=== PATIENT | male | born 1940 | race Hispanic/Latino ===

== ENCOUNTER 2017-08-29 12:10 | Inpatient (IN) | payer MEDICARE, BC ==
--- NOTE | 2017-08-29 12:26 | ED PDOC ---
Arrival/HPI - General Time Seen by Provider: 08/29/17 12:22 Historian: EMS EM Caveat: Acuity of Condition - History of Present Illness Narrative History of Present Illness (Text): 08/29/17 12:23 Patient is a 77 yo male presents via [facility] ambulance after he was "found by neighbors lying on the floor". Reportedly patient was last seen "2-3 days ago" and on arrival of medics he was "found laying on the ceramic floor in the bathroom not responding". No other history available at this time. Patient reportedly was not verbal but found to be trembling and not answering any questions. Past Medical History - Provider Review Nursing Documentation Reviewed: Yes Family/Social History - Physician Review Nursing Documentation Reviewed: Yes Family/Social History: No Known Family HX Allergies/Home Meds Allergies/Adverse Reactions: Allergies Unobtainable Allergy (Verified 08/29/17 12:30) Home Medications: Home Meds Medication Instructions Recorded Confirmed Unobtainable 08/29/17 08/29/17 Review of Systems - Review of Systems Systems not reviewed;Unavailable: Acuity of Condition Neurological: Speech Changes Physical Exam - Physical Exam Narrative Physical Exam (Text): Head: Atraumatic. Normocephalic. Eyes: Pupils pinpoint, minimally reactive, left sided gaze preference. ENT: Mucous membranes are dry. Oropharynx is clear and symmetric. Neck: Supple. Full ROM. No JVD. No lymphadenopathy. No soft tissue swelling. Cardiovascular: Tachycardic, irregularly irregular, systolic murmur noted. Pulmonary/Chest: Tachypneic. Clear to auscultation bilaterally. No wheezing, rales or rhonchi. Abdominal: Soft and non-distended. There is no tenderness. No rebound, guarding, or rigidity. No organomegaly. Good bowel sounds. Back: No CVA tenderness. No deformity. Extremities: No edema. No cyanosis. No clubbing. Abrasion noted to left lower extremity. No bony deformities noted. Skin: Skin is pale but warm. Neurological: Aphasic. Left sided gaze. Fine resting generalized tremor. Will localize pain but does not follow commands. Babinski down. Reflexes diminished. Patient with ? facial droop. Psychiatric: Poor eye contact. Poor interaction. Rectal: no gross bleeding Vital Signs Reviewed: Yes Vital Signs Temp Pulse Resp BP Pulse Ox 08/29/17 17:01 98.5 F 111 H 17 155/80 H 96 08/29/17 16:50 118 H 18 163/107 H 96 08/29/17 15:18 98.2 F 118 H 18 160/72 H 08/29/17 14:00 98.2 F 115 H 17 119/87 97 08/29/17 12:18 98.4 F 130 H 26 H 108/93 H 94 L Temperature: Afebrile Pulse: Irregular Respiratory Rate: Tachypneic Appearance: Positive for: Ill-Appearing Mental Status: Positive for: other (not following commands) Medical Decision Making ED Course and Treatment: 08/29/17 13:22 Impression: 77 year old male presents found unresponsive on the floor by neighbors. Progress Notes: History is supplemented by EMS personnel. Patient reportedly live by himself and was LAST SEEN 2-3 days AGO. NO known last time well. On exam he is aphasic, left sided gaze preference. Head CT emergently ordered. He is tremulous but afebrile. Shaking does NOT appear to be consistent with seizure activity, although ATIVAN given PRIOR TO ARRIVAL BY EMS. PROCEDURE: CT HEAD WITHOUT CONTRAST. Dictator : Catarino Kovacs MD Report Date : 08/29/2017 IMPRESSION: No acute intracranial findings PROCEDURE: Chest X-ray Dictator : Catarino Kovacs MD Report Date : 08/29/2017 13:12:16 IMPRESSION: No active disease Upon return from CT he is less tremulous, appears to localize voice, localize pain. He is NOT a tpa candidate as UNKNOWN TIME OF ONSET OF SYMPTOMS. Patient was noted to be in atrial fibrillation with rapid ventricular response. Lactate elevated with leukocytosis. Chemistry is pending at this time. Will initiate iv antibiotics for possible component of sepsis. Patient will be admitted to ICU for CVA, arrhythmia, sepsis. I have discussed case with Dr. Shanda Currie, including heart rhythm and current exam. Cardiology was also consulted for arrhythmia to review anticoagulation pending further neurology studies/input. PMD Dr. Carmelo Taylor accepts patient to his service, informs me that review of office records reveal he has no known allergies, has history of CAD, COPD. 08/29/17 14:34 Troponin elevated. Cr. 1.7. 08/29/17 14:48 Code Sepsis called. As there is suspicion of acute cva as well as acute SD based on neuro exam and based on elevated troponin, iv hydration will be coordinted with neurologist and fiber machine tender as there is suspicion of multiple processes including risk of cardiac disease. I have discussed case directly with Dr. Currie who has evaluated patient in ED and states that patient may receive Heparin for atrial fibrillation/SD if discussed with fiber machine tender. I have discussed patients presentation with Dr. Silveira, covering for cardiology consult, and reviewed patient CT head reading as well as neurology recommendations. I have also communciated with embalmer assistant Dr. Howard, who is aware of current recommendations from neurology and cardiology. Patient intiated on Heparin in ED after this medication reviewed with Dr. Currie , Dr. Silveira, and embalmer assistant. MRI ordered although due to inability to confirm if any contraindications to MRI , due to patient's mental status, at this time MRI unable to be obtained at this time while in ED. This was communicated to admitting team. Dr. Carmelo Taylor updated with patient's disposition and consultations. Attempt to contact listed "next of kin" with no response while in ED. Care turned over to PMD and ICU team. 08/29/17 18:30 - Critical Care Critical Care Minutes: 60 minutes - Lab Interpretations Lab Results: 08/29/17 12:30 08/29/17 13:35 Lab Results 08/29/17 13:35: Chloride 101, Sodium 139, Potassium 4.5, Carbon Dioxide 22, Anion Gap 21 H, BUN 29 H, Creatinine 1.7 H, Est GFR ( Amer) 47, Est GFR ( Non-Af Amer) 39, Random Glucose 116 H, Calcium 9.3, Total Bilirubin 1.0, AST 141 H, ALT 83 H, Alkaline Phosphatase 102, Lactate Dehydrogenase 1333 H, Total Creatine Kinase 4782 H, CK-MB (CK-2) 51.4 H, CK-MB (CK-2) % 1.1 L, Troponin I 0.57 H*, Total Protein 7.3, Albumin 4.2, Globulin 3.2, Albumin/Globulin Ratio 1.3, Triglycerides 99, Cholesterol 174, LDL Cholesterol Direct 100, HDL Cholesterol 65 H 08/29/17 13:20: Urine Color Yellow, Urine Appearance Sl cloudy, Urine pH 5.5, Ur Specific Henderson >= 1.030, Urine Protein 100 H, Urine Glucose (UA) Negative, Urine Ketones Trace H, Urine Blood Large H, Urine Nitrate Negative, Urine Bilirubin Negative, Urine Urobilinogen 0.2, Ur Leukocyte Esterase Negative, Urine RBC 1 - 3, Urine WBC 0 - 2, Ur Epithelial Cells 0 - 2, Amorphous Sediment Moderate, Urine Bacteria Small, Hyaline Casts 0 - 2 08/29/17 12:50: pCO2 33 L, pO2 73.0 L, HCO3 16.2 L, ABG pH 7.30 L, ABG Total CO2 17.2 L, ABG O2 Saturation 97.7, ABG Base Excess -9.2 L, Chloride 103.0, Glucose 137 H, Lactate 8.3 H* 08/29/17 12:30: TSH 3rd Generation 0.75 08/29/17 12:30: Blood Type AB POSITIVE, Antibody Screen Negative, BBK History Checked No verified bt 08/29/17 12:30: PT 15.4 H, INR 1.39 H, APTT 30.4 08/29/17 12:30: WBC 21.2 H, RBC 4.42, Hgb 12.8 L, Hct 39.5 L, MCV 89.4, MCH 29.0 , MCHC 32.4, RDW 13.9, Plt Count 269, MPV 10.3, Gran % 88.1 H, Lymph % (Auto) 2.6 L, [place] % (Auto) 9.3 H, Eos % (Auto) 0.0 L, Baso % (Auto) 0.0, Gran # 18.69 H, Lymph # 0.6 L, [place] # 2.0 H, Eos # 0.0, Baso # 0.01, Neutrophils % (Manual) 91 H, Lymphocytes % (Manual) 5 L, Monocytes % (Manual) 4, Large Platelets Present, Giant Platelets Present, Poikilocytosis (manual Slight, Anisocytosis ( manual) Slight 08/29/17 12:21: POC Glucose (mg/dL) 95 I have reviewed the lab results: Yes - RAD Interpretation Radiology Orders: 08/29/17 12:31 HEAD W/O CONTRAST [CT] Stat CHEST PORTABLE [RAD] Stat - EKG Interpretation Interpreted by ED Physician: Yes Type: 12 lead EKG - Medication Orders Current Medication Orders: Atorvastatin Calcium (Lipitor) 20 mg NG DAILY BERTO Heparin Sodium/Sodium Chloride (Heparin 16101 Units/250ml 1/2 Normal Saline) 25 ,000 units in 250 mls @ 10.173 mls/hr IV .Q24H PRN; Protocol; 18 UNITS/KG/HR PRN Reason: ADJUST RATE PER PROTOCOL Last Admin: 08/29/17 16:44 Dose: 18 units/kg/hr, 10.173 mls/hr eMAR Start Stop Document 08/29/17 16:44 SF (Rec: 08/29/17 16:55 SF [id number]) Intravenous Solution Start Date 08/29/17 Start Time 16:44 Titration Intervention Document 08/29/17 16:44 SF (Rec: 08/29/17 16:55 SF [id number]) Titration Intake Waste Amount 0 Container Volume 250 Titration Dosing Titration Dose 18 IV Rate 10.173 Intake/Decrease Started diltiaZEM IVPB 100mg in NS (Cardizem 100mg In Ns) 100 mls @ 5 mls/hr IV .Q20H PRN; Protocol; 5 MG/HR PRN Reason: TITRATE PER MD ORDER Last Admin: 08/29/17 18:12 Dose: 5 mg/hr, 5 mls/hr eMAR Start Stop Document 08/29/17 18:12 JFG (Rec: 08/29/17 18:12 [id number]) Intravenous Solution Start Date 08/29/17 Start Time 18:12 MAR Pulse and Blood Pressure Document 08/29/17 18:12 JFG (Rec: 08/29/17 18:12 [id number]) Pulse Pulse Rate (60-90) 128 Blood Pressure Blood Pressure (100/60-150/90) 173/67 Titration Intervention Document 08/29/17 18:12 JFG (Rec: 08/29/17 18:12 [id number]) Titration Intake Waste Amount 0 Container Volume 100 Titration Dosing Titration Dose 5 IV Rate 5 Intake/Decrease Started Dextrose/Sodium Chloride (Dextrose 5%/0.45% Ns 1000 Ml) 1,000 mls @ 50 mls/hr IV .Q20H BERTO Last Admin: 08/29/17 18:23 Dose: 50 mls/hr eMAR Start Stop Document 08/29/17 18:23 JFG (Rec: 08/29/17 18:23 [id number]) Intravenous Solution Start Date 08/29/17 Start Time 18:23 End Date 08/29/17 Metoprolol Tartrate (Lopressor) 50 mg NG BID BERTO Discontinued Medications Aspirin (Aspirin Supp) 300 mg RC STAT STA Stop: 08/29/17 13:15 Last Admin: 08/29/17 13:54 Dose: 300 mg Sodium Chloride (Sodium Chloride 0.9%) 500 mls @ 1,000 mls/hr IV .Q30M STA Stop: 08/29/17 13:45 Last Admin: 08/29/17 13:20 Dose: 1,000 mls/hr eMAR Start Stop Document 08/29/17 13:20 SF (Rec: 08/29/17 13:46 SF [id number]) Intravenous Solution Start Date 08/29/17 Start Time 13:20 End Date 08/29/17 End time 13:50 Total Infusion Time 30 Cefepime HCl (Maxipime 2gm) 2 gm in 100 mls @ 100 mls/hr IVPB STAT STA PRN Reason: Protocol Stop: 08/29/17 15:32 Last Admin: 08/29/17 15:17 Dose: 100 mls/hr eMAR Start Stop Document 08/29/17 15:17 SF (Rec: 08/29/17 15:18 SF [id number]) Intravenous Solution Start Date 08/29/17 Start Time 15:18 End Date 08/29/17 End time 16:18 Total Infusion Time 60 Sodium Chloride (Sodium Chloride 0.9%) 500 mls @ 1,000 mls/hr IV .Q30M STA Stop: 08/29/17 15:29 Last Admin: 08/29/17 15:45 Dose: 1,000 mls/hr eMAR Start Stop Document 08/29/17 15:45 SF (Rec: 08/29/17 16:43 SF [id number]) Intravenous Solution Start Date 08/29/17 Start Time 15:45 End Date 08/29/17 End time 16:45 Total Infusion Time 60 Acetaminophen (Ofirmev) 1,000 mg in 100 mls @ 400 mls/hr IVPB STAT STA Stop: 08/29/17 18:12 Last Admin: 08/29/17 18:23 Dose: 400 mls/hr eMAR Start Stop Document 08/29/17 18:23 JFG (Rec: 08/29/17 18:23 [id number]) Intravenous Solution Start Date 08/29/17 Start Time 18:23 End Date 08/29/17 End time 18:38 Total Infusion Time 15 MAR Pain Assessment Document 08/29/17 18:23 CLARKERufina (Rec: 08/29/17 18:23 [id number]) Pain Reassessment Is this a pain reassessment? No Sleep Is patient sleeping during reassessment? Yes NIHSS Scale ([place]) Time Performed: 12:44 - How Severe is the Stoke Baseline Level of Consciousness: 2=Obtunded LOC to Questions: 2=Neither correct LOC to commands: 2=Neither correct Best Gaze: 2=Forced deviation Visual: 0=No visual loss Facial: 1=Minor asymmetry Motor Arm - Left: 2=Falls before 10 sec Motor Arm - Right: 2=Falls before 10 sec Motor Leg - Left: 2=Falls before 5 sec Motor Leg - Right: 2=Falls before 5 sec Limb Ataxia: 1=Present Upper or Lower Sensory: 0=Normal Best Language: 2=Severe aphasia Dysarthia: 2=Severe, near unintelligible or worse Extinction & Inattention (Neglect): 0=Normal, no object Score: 22 Risk Level: Severe Stroke Risk rTPA Inclusion/Exclusion - Refusal of Treatment Patient Refused Treatment: Yes - Inclusion Criteria for Altepase Patient is 18 years or Older: Yes The Clinical Diagnosis of Ischemic Stroke That is Causing a Potentially Disabling Neurological Deficit: Yes Time of Onset is Well Established to be Less Than 270 Minute Before Treatment Would Begin: No Risk/Benefit Discussed With Patient/Family Member Present: No - Exclusion Criteria for Altepase Uncontrolled Hypertension at Time of Treatment (Systolic BP above 185 or Diastolic BP above 110 mmHg): No Disposition/Present on Arrival - Present on Arrival Any Indicators Present on Arrival: Yes History of DVT/PE: No History of Uncontrolled Diabetes: No Urinary Catheter: Yes History of Decub. Ulcer: No - Disposition Have Diagnosis and Disposition been Completed?: Yes Diagnosis: CVA (cerebral vascular accident), Aphasia, Atrial fibrillation, Leukocytosis, Sepsis, Rhabdomyolysis Disposition: HOSPITALIZED Disposition Time: 13:50 Patient Plan: Admission, ICU Patient Problems: Current Active Problems Problem Status Onset Aphasia Acute Atrial fibrillation Acute CVA (cerebral vascular accident) Acute Leukocytosis Acute Rhabdomyolysis Acute Sepsis Acute Condition: CRITICAL
[2017-08-29 12:50] LABS: BASO # 0.01 K/mm3 (0.0-2.0); GRAN # 18.69 (1.4-6.5); GRAN % 88.1 % (50.0-68.0); HEMATOCRIT 39.5 % (42.0-52.0); LYMPH # 0.6 (1.2-3.4); LYMPH % 2.6 % (22.0-35.0); MEAN CELL VOLUME 89.4 fl (80.0-105.0); MEAN CORPUSCULAR HGB CONC 32.4 g/dl (31.0-37.0); MEAN PLATELET VOLUME 10.3 fl (7.0-11.0); MONO % 9.3 % (1.0-6.0); PLATELET COUNT 269 10^3/uL (120.0-450.0); RED CELL DISTRIBUTION WIDTH 13.9 % (11.5-14.5); WHITE BLOOD COUNT 21.2 10^3/ul (4.5-11.0)
[2017-08-29 12:58] LABS: INR 1.39 (0.93-1.08); PARTIAL THROMBOPLASTIN TIME 30.4 Seconds (25.1-36.5)
[2017-08-29 13:02] LABS: ARTERIAL BLOOD GAS HCO3 16.2 mmol/L (21-28)
[2017-08-29 13:08] LABS: NEUTROPHIL 91 % (50.0-70.0)
[2017-08-29 13:09] LABS: ANISOCYTOSIS SLIGHT; GIANT PLATELETS PRESENT; LARGE PLATELETS PRESENT; POIKILOCYTOSIS SLIGHT
--- NOTE | 2017-08-29 13:14 | RAD ---
HISTORY: cva COMPARISON: No prior. FINDINGS: LUNGS: No active pulmonary disease. PLEURA: No significant pleural effusion identified, no pneumothorax apparent. CARDIOVASCULAR: Normal. OSSEOUS STRUCTURES: No significant abnormalities. VISUALIZED UPPER ABDOMEN: Normal. OTHER FINDINGS: None. IMPRESSION: No active disease.
[2017-08-29] MEDS ORDERED: Sodium Chloride 0.9% 500 ML IV STA ×2 (13:16→15:00)
--- NOTE | 2017-08-29 13:16 | CT ---
PROCEDURE: CT HEAD WITHOUT CONTRAST. HISTORY: aphasic, left sided gaze COMPARISON: None available. TECHNIQUE: Axial computed tomography images were obtained through the head/brain without intravenous contrast. Radiation dose: Total exam DLP = 881 mGy-cm. This CT exam was performed using one or more of the following dose reduction techniques: Automated exposure control, adjustment of the mA and/or kV according to patient size, and/or use of iterative reconstruction technique. FINDINGS: HEMORRHAGE: No intracranial hemorrhage. BRAIN: No mass effect or edema. Severe chronic microvascular changes are seen in the periventricular white matter. This is most severe in the occipital regions. VENTRICLES: Unremarkable. No hydrocephalus. CALVARIUM: Unremarkable. PARANASAL SINUSES: Unremarkable as visualized. No significant inflammatory changes. MASTOID AIR CELLS: Unremarkable as visualized. No inflammatory changes. OTHER FINDINGS: None. IMPRESSION: No acute intracranial findings
[2017-08-29] MEDS ORDERED: Cefepime IV 2 gm in NS 100 ML IVPB STA (14:25)
[2017-08-29 14:30] LABS: ALB/GLOB RATIO 1.3 (1.1-1.8); CALCIUM 9.3 mg/dL (8.4-10.5); TOTAL PROTEIN 7.3 g/dL (5.8-8.3)
[2017-08-29] MEDS ORDERED: Cefepime IV 2 gm in NS 2 GM/100 ML BAG IVPB STA (14:33)
[2017-08-29 14:36] LABS: POTASSIUM 4.5 mmol/L (3.6-5.0)
[2017-08-29 14:48] LABS: TROPONIN I 0.57 ng/mL
[2017-08-29 15:06] LABS: PH,URINE 5.5 (4.7-8.0); URINE BILIRUBIN NEGATIVE (NEGATIVE); URINE BLOOD LARGE (NEGATIVE); URINE GLUCOSE (UA) NEGATIVE (NEGATIVE); URINE KETONE TRACE mg/dL (NEGATIVE); URINE LEUKOCYTE ESTERASE NEGATIVE Leu/uL (NEGATIVE); URINE PROTEIN 100 mg/dL (<30 mg/dL); URINE UROBILINOGEN 0.2 E.U./dL (<1 E.U./dL)
[2017-08-29 15:08] LABS: URINE APPEARANCE SL CLOUDY (CLEAR); URINE COLOR YELLOW (YELLOW)
[2017-08-29 15:13] LABS: URINE BACTERIA SMALL (NEG); URINE WBC 0 - 2 /hpf (0-6)
[2017-08-29 15:14] LABS: URINE AMORPHOUS SEDIMENT MODERATE; URINE EPITHELIAL CELLS 0 - 2 /hpf (0-5)
[2017-08-29] MEDS ORDERED: Heparin25000 units/250ml 1/2NS 25,000 UNITS/250 ML BAG IV PRN (16:07)
[2017-08-29 16:08] LABS: VENOUS BLOOD GAS BASE EXCESS -12.5 mmol/L (0.0-2.0); VENOUS BLOOD PH 7.24 (7.32-7.43)
[2017-08-29] MEDS: Heparin25000 units/250ml 1/2NS 25,000 UNITS/250 ML BAG IV PRN (16:44)
[2017-08-29] MEDS: diltiaZEM IVPB 100mg in NS 100 ML IV PRN (18:12)
[2017-08-29] MEDS ORDERED: Dextrose 5%/0.45% NS 1,000 ML IV SCH (18:15)
--- NOTE | 2017-08-29 18:24 | PCM.SEPTIC ---
Sepsis Progress Note - Reassessment Type Date of Evaluation: 08/29/17 Time of Evaluation: 18:24 Reassessment Type: Non-invasive reassessment - Non Invasive Reassessment Were the most recent vital sign reviewed: Yes Vital Sign (Latest): Temp Pulse Resp BP Pulse Ox 98.5 F 128 H 17 173/67 H 96 08/29/17 17:01 08/29/17 18:12 08/29/17 17:01 08/29/17 18:12 08/29/17 17:01 Cardiovascular: Yes: Tachycardia, Irregularly Irregular Respiratory: Yes: Normal Breath Sounds. No: Crackles, Rales, Rhonchi Capillary Refill: Normal (Less than 2 sec) Skin: Normal Color, Warm
--- NOTE | 2017-08-29 21:12 | CON ---
[facility] CONSULT DATE: 08/29/2017 ADMITTING PHYSICIAN: Dr. Douglas Taylor. CHIEF COMPLAINT: The patient presented with a history that he was found by neighbors unresponsive, lying on the floor. HISTORY OF PRESENT ILLNESS: Mr. Farfan is a 77-year-old male that was found by his neighbors lying on the floor. Reportedly, it was possibly 24 to 48 hours. The patient at this time does respond minimally to the spoken word and to painful stimuli, but is not verbal at all. The patient is moving all extremities. He does have a fever and is tachycardic, but blood pressure is stable and respiratory rate is stable as well. O2 saturation is 100% on 2 liters of nasal cannula. PAST MEDICAL HISTORY: Significant for COPD and coronary artery disease with stents. SOCIAL HISTORY: Unknown and the patient does from what understood have no known family members. ALLERGIES: UNKNOWN WELL. REVIEW OF SYSTEMS: Unable to assess because the patient is nonverbal and minimally responsive. PHYSICAL EXAMINATION: VITAL SIGNS: His temperature is 101, respirations are 13, BP is 167/105, heart rate is 135. HEENT: Head is atraumatic and normocephalic. Eyes; pupils are pinpoint, minimally reactive and left-sided gaze preference. Mucous membranes are dry. Ears, nose and throat seem to be within normal limits. NECK: Supple. No JVD. No thyroid enlargement. No lymph nodes. HEART: Has irregular rate and rhythm. Normal S1 and S2, but tachycardic. LUNGS: Reveal good breath sounds bilaterally. No wheezing or rhonchi. ABDOMEN: Soft, decreased bowel sounds. No organomegaly noted. GENITALIA AND RECTAL: Deferred. MUSCULOSKELETAL: No joint deformities. EXTREMITIES: Reveal no edema. NEUROLOGICAL: The patient is aphasic with left-sided gaze, but moving all extremities and is very lethargic and minimally responsive to spoken word and painful stimuli. LABORATORY DATA: Of concern, his white count is 21.2, hemoglobin is 12.8, hematocrit 39.5 with platelets of 269,000. Sodium is 139, potassium is 4.5, chloride 101, CO2 of 22 with a BUN of 29, creatinine of 1.7 and glucose of 116. The patient's arterial blood gas reveals a pH of 7.30, pCO2 of 33 and pO2 of 73. Note that initial lactate on gas was 8.3 and then a repeat on a venous gas is 1.8. Chest x-ray reveals no infiltrates and CT scan of the head reveals no significant abnormalities. IMPRESSION: As far as my impression, this patient is unresponsive with altered mental status with a left gaze and possible cerebrovascular accident. Note that MRI was not done because we could not confirm that the patient does not have any metal objects that would prevent MRI from being ordered and done. Neurology and cardiology made a decision and the patient has increased troponin, rule out myocardial infarction. He was placed on heparin in the ER without a bolus. The patient has most likely sepsis with increased temperature and increased white count and increased lactate. He has renal insufficiency and a total CK is elevated as well being found on the floor he seems to have a mild rhabdomyolysis. The patient has a tachycardia and history of chronic obstructive pulmonary disease as well as coronary artery disease and stent placed. He does have atrial fibrillation, seems to be new onset. PLAN: As far as our plan, we will continue with heparin IV. The patient has been started on Cardizem for his heart rate. We will start IV fluids D5 and half. The patient is on Maxipime for possible sepsis and consult was called for cardiology, neurology as well as ID. The patient's laboratories will be followed closely and corrected as needed. He will be given IV Tylenol one dose for temperature and we will continue to treat aggressively along with the other consultants and the primary care doctor. John Howard MD
[2017-08-29 22:18] VITALS: BMI 20.6
[2017-08-29] MEDS ORDERED: Pneumococcal 23-Valent Vaccine IM ONE (22:18)
[2017-08-29] MEDS ORDERED: Influenza Vaccine 60 mcg/0.5 mL SYR (4YR UP) IM ONE (22:18)
--- NOTE | 2017-08-29 23:36 | CON ---
HISTORY OF PRESENT ILLNESS: This is a 77-year-old white male with no significant past medical history, was found on the floor and the patient was last seen 2 to 3 days ago and was not responding, possibly aphasic, called to evaluate to the patient. PAST MEDICAL HISTORY: Not known. ALLERGIES: DOES NOT KNOW. REVIEW OF SYSTEMS: Ten-point review of system, the patient is aphasic and left-sided, moves okay and also left gaze preference. PHYSICAL EXAMINATION: VITAL SIGNS: Blood pressure is 108/93 and awake, aphasic. HEENT: Normocephalic and atraumatic. Pupil minimally reactive and left gaze preference. EXTREMITIES: Spontaneous movement of the extremities noted. Deep tendon reflexes 1+. Both plantars are equivocal. IMPRESSION: Cerebrovascular accident and white cell count is high, possibly sepsis and also atrial fibrillation and cardiology on the board. Workup is in progress. CAT scan did not show any bleed. We will follow up. Baljinder Currie MD
[2017-08-30] MEDS: diltiaZEM IVPB 100mg in NS 100 ML IV PRN (00:05)
[2017-08-30 06:16] LABS: BASO # 0.02 K/mm3 (0.0-2.0); BASO % 0.1 % (0.0-3.0); GRAN # 20.03 (1.4-6.5); GRAN % 81.6 % (50.0-68.0); HEMATOCRIT 39.4 % (42.0-52.0); LYMPH # 2.1 (1.2-3.4); LYMPH % 8.7 % (22.0-35.0); MEAN CELL VOLUME 88.7 fl (80.0-105.0); MEAN CORPUSCULAR HEMOGLOBIN 28.4 pg (25.0-35.0); MEAN PLATELET VOLUME 10.9 fl (7.0-11.0); MONO # 2.4 (0.1-0.6); MONO % 9.6 % (1.0-6.0); RED CELL DISTRIBUTION WIDTH 14.4 % (11.5-14.5); WHITE BLOOD COUNT 24.6 10^3/ul (4.5-11.0)
[2017-08-30 06:27] LABS: ALB/GLOB RATIO 1.2 (1.1-1.8); BILIRUBIN,TOTAL 0.9 mg/dL (0.2-1.3); CALCIUM 9.1 mg/dL (8.4-10.5); TOTAL PROTEIN 7.1 g/dL (5.8-8.3)
[2017-08-30 07:09] LABS: TROPONIN I 1.48 ng/mL
[2017-08-30] MEDS ORDERED: Vancomycin 1gm in NS 250ml 1 GM/250 ML BAG IVPB STA (08:14)
--- NOTE | 2017-08-30 08:54 | CARD ---
APPROVED REPORT EKG Measurement Heart [id number] <Conclusion> Atrial flutter with variable AV block Left ventricular hypertrophy with repolarization abnormality
[2017-08-30] MEDS: Cefepime 1gm in NS 100ml 1 GM/100 ML BAG IVPB SCH ×2 (09:01→22:00)
--- NOTE | 2017-08-30 10:13 | RAD ---
HISTORY: check dobhoff placement COMPARISON: 08/29/2017 FINDINGS: LUNGS: No active pulmonary disease. PLEURA: No significant pleural effusion identified, no pneumothorax apparent. CARDIOVASCULAR: Normal. OSSEOUS STRUCTURES: No significant abnormalities. VISUALIZED UPPER ABDOMEN: Normal. OTHER FINDINGS: None. IMPRESSION: The feeding tube is seen just beyond the GE junction
--- NOTE | 2017-08-30 10:20 | PN ---
DATE: 08/30/2017 PRINT LINE FEEDER NOTE SUBJECTIVE: The patient is more responsive this morning. He does answered to the spoken word, but not sure if he is oriented to place and time. The patient has no respiratory distress, does have occasional cough, no obvious pain. Vital signs seem to be stable this morning. PHYSICAL EXAMINATION: VITAL SIGNS: Note that his temperature still seems to be elevated at 101.5, his pulse is 82, respirations are 23, BP is 170/82, and O2 saturations 99% on nasal cannula. HEENT: Head is atraumatic and normocephalic. Eyes, reactive to light. Ears, nose, and throat seem to be within normal limits. NECK: Supple. No JVD. No thyroid enlargement. No lymph nodes. HEART: Has regular rate and rhythm. Normal S1 and S2. LUNGS: Reveal rare rhonchi at the bases. ABDOMEN: Soft. Decreased bowel sounds. GENITALIA: Deferred. RECTAL: Deferred. MUSCULOSKELETAL: No joint deformities. EXTREMITIES: Reveals no significant edema. NEUROLOGICAL: The patient is arousable and does answer to the spoken word and moving all extremities. LABORATORY DATA: As far as his laboratory date is concerned, his white count is 24.6, hemoglobin is 12.6, and hematocrit is 39.4 with platelets of 228,000. Sodium is 137, potassium is 4.0, chloride is 104, CO2 of 25 with BUN of 41, creatinine of 1.8, and glucose of 128. The patient's troponin is 1.48. Chest x-ray reveals no obvious infiltrates, that is reading. IMPRESSION: This patient presented unresponsive with altered mental status, cerebrovascular accident continues to be possibility, even though the CT scan was negative. The patient was unable to get an MRI. The patient had increased troponins with myocardial infarction and continues to have fever, most likely secondary to sepsis, etiology unclear. The patient does have mild rhabdomyolysis and carries a diagnosis of chronic obstructive pulmonary disease as well as coronary artery disease with stent and atrial fibrillation, which note the atrial fibrillation is new onset. PLAN: As far as our plan, we will continue with IV heparin. The patient is on IV Cardizem as well and is getting IV fluids D5 and half. He continues to be on antibiotics as per ID and will continue to follow his laboratories and electrolytes and correct that as needed. We will continue to treat aggressively along with the other consultants. John Howard MD
--- NOTE | 2017-08-30 10:50 | RAD ---
HISTORY: f/u COMPARISON: 08/29/2017 FINDINGS: LUNGS: No active pulmonary disease. PLEURA: No significant pleural effusion identified, no pneumothorax apparent. CARDIOVASCULAR: Normal. OSSEOUS STRUCTURES: No significant abnormalities. VISUALIZED UPPER ABDOMEN: Feeding tube in satisfactory position. The tip is seen in the gastric fundus just beyond the GE junction OTHER FINDINGS: None. IMPRESSION: No active disease.
--- NOTE | 2017-08-30 10:53 | RAD ---
PROCEDURE: Radiographs of the pelvis and bilateral hips HISTORY: Fall COMPARISON: None. FINDINGS: BONES: Pelvis: Unremarkable. Right hip:Unremarkable. Left hip:Unremarkable. JOINTS: Right hip: Unremarkable. Left hip: Unremarkable. Sacroiliac Joints: Unremarkable. Pubic symphysis: Unremarkable. SOFT TISSUES: Normal. OTHER FINDINGS: None. IMPRESSION: Unremarkable radiographs of the hips and pelvis.
[2017-08-30] MEDS: Folic Acid 1 MG, Thiamine 100 MG, Multivitamin (MVI) 10 ML in Dextrose 5% In Water 1,00... IV SCH (16:42)
--- NOTE | 2017-08-30 17:00 | PN ---
DATE: SUBJECTIVE: The patient is fully responsive in ICU. He was started on IV Cardizem, now he is off IV Cardizem. No reported ventricular arrhythmia or hypotension. No reported respiratory distress. PHYSICAL EXAMINATION: VITAL SIGNS: Blood pressure 134/94, heart rate 82, temperature 101.5 rectally, and respirations 22. HEENT: Loss of right nasal labial fold. CHEST: Diminished breath sounds bilaterally. HEART: S1 and S2 regular. ABDOMEN: Soft. EXTREMITIES: No edema. LABORATORY DATA: Hemoglobin and hematocrit 12.6 and 39.4, white count 24.6, and platelet count 228,000. SMA-7 sodium 137, potassium 4, chloride 104, CO2 25, glucose 128, BUN 41, and creatinine 1.8. Troponin is 1.48, which is a slight increase compared to yesterday. PTT is 103.4 seconds. Hip and pelvis x-ray no acute fracture. Today's chest x-ray no active disease. ASSESSMENT: 1. Acute cerebrovascular accident with right hemiplegia and expressive aphasia. 2. Atrial fibrillation. 3. Rule out underlying sepsis. RECOMMENDATIONS: Continue current therapy with intravenous heparin infusion. Continue Lipitor 20 mg daily, Lopressor 50 mg twice a day, Maxipime at 1 g q.12 hours. Consider repeat head CT scan without contrast. TSH level, which I ordered yesterday, is within normal limits. The troponin elevation represent an ischemic brain infarct other than myocardial infarction. In the meantime, I will obtain 12-lead EKG today. John Paul Scott MD
--- NOTE | 2017-08-30 19:36 | CON ---
DATE: 08/30/2017 LOCATION: The patient is in the ICU room 128, bed 2. CHIEF COMPLAINT: Elevated WBC count x1 day. HISTORY OF PRESENT ILLNESS: This is a 77-year-old male who was found at home by a neighbor unresponsive and the patient has a history of coronary artery disease and chronic obstructive lung disease and anemia and a history of cardiac stent placement, who was found at home unresponsive and diagnosis of cerebrovascular accident was made. The patient is in the hospital in the ICU. He does not verbalize. Information is gathered from the chart. Nurse is caring for the patient. There has been fevers reported. No chills. No diarrhea. There is mild shortness of breath. No chest pain reported. No headaches. PAST MEDICAL HISTORY: Significant for chronic obstructive lung disease, coronary artery disease, and anemia. PAST SURGICAL HISTORY: Significant for cardiac catheterization and stent placement. ALLERGIES: UNKNOWN. HE DOES NOT VERBALIZE. MEDICATIONS AT HOME: Unknown. SOCIAL HISTORY: He lives by himself as per the nurse. PHYSICAL EXAMINATION: GENERAL: He is in bed, appearing weak, chronically ill, debilitated. VITAL SIGNS: Temperature of 101.5 and on admission yesterday, the patient had a temperature of 98. Blood pressure is 170/80, respiratory rate of 22, and heart rate of 77, it was up to 114. HEENT: Unremarkable. NECK: Supple. LUNGS: Decreased breath sounds. HEART: Normal S1 and S2. ABDOMEN: Soft and nontender. LABORATORY DATA: Reveals a white count of 21,000, hemoglobin of 12, and platelets of 269. The patient has 88% granulocytosis. PTT is 105. Chemistries revealed a BUN of 29 and creatinine of 1.7. The patient's creatinine prior to that was 1.2. Troponins are elevated at 0.57, 1.1, and 1.4. LFTs are mildly elevated. Alkaline phosphatase is normal. LDH is elevated. CK is elevated. Urinalysis is unremarkable. The patient had a CAT scan of the head, which reveals no acute infarct and no acute findings. No hemorrhage. A chest x-ray yesterday, no acute lung disease. Dr. Howard's consultation is reviewed and note is reviewed. Dr. Currie's note is reviewed. Blood cultures have been ordered. Urine cultures have been ordered. MRSA screen has been ordered. An echo has been ordered. The patient had an EKG. The results are not read and not available. ASSESSMENT AND PLAN: The patient is a 77-year-old male with chronic obstructive lung disease, coronary artery disease, and anemia, presenting with what appears to be a cerebrovascular accident with serious systemic inflammatory response syndrome and [id number] myocardial infarction with atrial flutter with atrioventricular block and rhabdomyolysis with acute kidney injury. We will the give the dose of vancomycin and start the patient on Maxipime. Pending blood culture, urine cultures, sputum culture, and procalcitonin. We will make further recommendations upon availability of initial results. Ordered an abdominal ultrasound and hepatitis profile and we will order FTA and RPR because of the cerebrovascular accident and LFT elevations. We will follow closely with you. We must rule out aspiration pneumonia from cerebrovascular accident. We will check on his repeat chest x-ray results, which are pending. Shlomo Leong MD
[2017-08-31] MEDS: Folic Acid 1 MG, Thiamine 100 MG, Multivitamin (MVI) 10 ML in Dextrose 5% In Water 1,00... IV SCH (01:30)
[2017-08-31] MEDS: Heparin25000 units/250ml 1/2NS 25,000 UNITS/250 ML BAG IV PRN (03:57)
[2017-08-31 07:06] LABS: HEMATOCRIT 39.8 % (42.0-52.0); MEAN CELL VOLUME 88.2 fl (80.0-105.0); MEAN CORPUSCULAR HEMOGLOBIN 28.8 pg (25.0-35.0); MEAN CORPUSCULAR HGB CONC 32.7 g/dl (31.0-37.0); MEAN PLATELET VOLUME 11.6 fl (7.0-11.0); RED CELL DISTRIBUTION WIDTH 14.2 % (11.5-14.5); WHITE BLOOD COUNT 23.6 10^3/ul (4.5-11.0)
[2017-08-31 07:28] LABS: ALB/GLOB RATIO 1.2 (1.1-1.8); BILIRUBIN,TOTAL 1.2 mg/dL (0.2-1.3); CALCIUM 8.7 mg/dL (8.4-10.5); PHOSPHOROUS 2.6 mg/dL (2.5-4.5); POTASSIUM 3.8 mmol/L (3.6-5.0); TOTAL PROTEIN 6.5 g/dL (5.8-8.3)
--- NOTE | 2017-08-31 08:41 | CON ---
CARDIOLOGY CONSULTATION DATE: 08/29/2017 REASON FOR CONSULTATION: Atrial fibrillation and acute CVA. HISTORY OF PRESENT ILLNESS: The patient is a 77 years old male who lives by himself who was brought in by the ambulance after he was found by his neighbor lying on the floor unresponsive. Last time the neighbors saw him was 2 to 3 days ago. The patient was found to be hemiplegic with expressive aphasia and in rapid atrial fibrillation. SOCIAL HISTORY AND REVIEW OF SYSTEMS: Unobtainable in detail at this time. HOME MEDICATIONS: Unobtainable at this time. PAST MEDICAL HISTORY: Unobtainable at this time. PHYSICAL EXAMINATION: GENERAL: The patient is an elderly male who is unresponsive to verbal commands, but does not appear to be in any acute respiratory distress. VITAL SIGNS: Blood pressure 160/72, heart rate 118, temperature 98.2, respirations 18. HEENT: Loss of right nasolabial fold. NECK: No JVD. CHEST: Symmetric breath sounds over the bases. HEART: S1 and S2 regular. ABDOMEN: Soft. EXTREMITIES: No edema. Little bit of bruising noted on the lateral aspect of the left thigh and knee. NEUROLOGIC: Consistent with right hemiplegia and expressive aphasia. EKG revealed rapid atrial fibrillation at the rate of 125, LVH with repolarization changes. LABORATORY DATA: SMA-7: Sodium 139, potassium 4.9, chloride 101, CO2 of 29, glucose 116, BUN 21, creatinine 1.7. Troponin is borderline elevated at 0.57. Total CPK is 4782. Hemoglobin and hematocrit 12.8 and 39.5, white count 21.2, platelet count 269,000. INR is 1.39. Head CT scan without contrast, no acute findings. Chest x-ray, no active disease. ASSESSMENT: 1. Acute cerebrovascular accident with right hemiplegia and expressive aphasia. 2. Rapid atrial fibrillation. 3. Chronic renal insufficiency. 4. Borderline troponin elevation, could be related to the acute cerebral ischemic infarct. RECOMMENDATIONS: I have discussed the case with emergency room physician. I agree with intravenous heparin in a therapeutic regimen. Start aspirin 81 mg once a day. Start other local medications once swallow evaluation is performed and the patient is able swallow. Monitor daily EKG's. Obtain an echocardiogram, TSH level. As an alternative, a nasogastric tube can be inserted and the patient will be started on Lopressor 50 mg twice a day and Lipitor 20 mg once a day. John Paul Scott MD
[2017-08-31] MEDS: Cefepime 1gm in NS 100ml 1 GM/100 ML BAG IVPB SCH ×2 (09:05→23:04)
[2017-08-31] MEDS: Sodium Chloride 0.9% 1,000 ML IV SCH ×2 (09:52→19:42)
--- NOTE | 2017-08-31 09:56 | CARD ---
APPROVED REPORT EKG Measurement Heart [id number] <Conclusion> Atrial fibrillation, new (was a. flutter 08/29/17) Voltage criteria for left ventricular hypertrophy Nonspecific ST and T wave abnormality
--- NOTE | 2017-08-31 10:31 | CP.PCM.PN ---
Subjective - Date & Time of Evaluation Date of Evaluation: 08/31/17 Time of Evaluation: 07:30 - Subjective Subjective: Patient seen and examined, remains altered, awake, but not alert, does not follow commands, does not converse. Objective - Vital Signs/Intake and Output Vital Signs (last 24 hours): Temp Pulse Resp BP Pulse Ox 99.6 F 88 23 179/113 H 99 08/31/17 04:00 08/31/17 09:06 08/30/17 06:20 08/31/17 09:06 08/30/17 06:30 Intake and Output: 08/31/17 08/31/17 06:59 18:59 Intake Total 1030 150 Output Total 750 Balance 280 150 - Medications Medications: Current Medications Atorvastatin Calcium (Lipitor) 20 mg NG DAILY [facility] Last Admin: 08/30/17 09:00 Dose: 20 mg Folic Acid (Folic Acid) 1 mg PO DAILY [facility] Hydralazine HCl (Apresoline) 10 mg IVP Q6 PRN PRN Reason: Systolic Blood Pressure Heparin Sodium/Sodium Chloride (Heparin 06799 Units/250ml 1/2 Normal Saline) 25 ,000 units in 250 mls @ 10.173 mls/hr IV .Q24H PRN; Protocol; 18 UNITS/KG/HR PRN Reason: ADJUST RATE PER PROTOCOL Last Titration: 08/31/17 07:45 Dose: 12 units/kg/hr, 6.782 mls/hr diltiaZEM IVPB 100mg in NS (Cardizem 100mg In Ns) 100 mls @ 5 mls/hr IV .Q20H PRN; Protocol; 5 MG/HR PRN Reason: TITRATE PER MD ORDER Last Admin: 08/30/17 00:05 Dose: 5 mg/hr, 5 mls/hr Cefepime HCl (Maxipime 1gm) 1 gm in 100 mls @ 100 mls/hr IVPB Q12 [facility] PRN Reason: Protocol Stop: 09/08/17 10:01 Last Admin: 08/31/17 09:05 Dose: 100 mls/hr Sodium Chloride (Sodium Chloride 0.9%) 1,000 mls @ 125 mls/hr IV .Q8H [facility] Last Admin: 08/31/17 09:52 Dose: 125 mls/hr Lorazepam (Ativan) 1 mg IVP Q6H PRN; Protocol PRN Reason: Anxiety Last Admin: 08/30/17 22:56 Dose: 1 mg Metoprolol Tartrate (Lopressor) 50 mg NG BID [facility] Last Admin: 08/31/17 09:06 Dose: 50 mg Multivitamins (Thera Tab) 1 tab PO 0800 [facility] Thiamine HCl (Vitamin B1 Tab) 100 mg PO DAILY [facility] - Labs Labs: 08/31/17 06:00 08/31/17 06:00 PT 15.4 SECONDS (9.4-12.5) H 08/29/17 12:30 INR 1.39 (0.93-1.08) H 08/29/17 12:30 APTT 85.3 Seconds (25.1-36.5) H 08/31/17 06:00 - Constitutional Appears: Well, Non-toxic, No Acute Distress - Head Exam Head Exam: ATRAUMATIC - ENT Exam ENT Exam: Mucous Membranes Moist - Neck Exam Neck Exam: Full ROM - Respiratory Exam Respiratory Exam: Clear to Ausculation Bilateral, NORMAL BREATHING PATTERN - Cardiovascular Exam Cardiovascular Exam: Irregular Rhythm, +S1, +S2 - GI/Abdominal Exam GI & Abdominal Exam: Soft, Normal Bowel Sounds - Extremities Exam Extremities Exam: Normal Inspection - Neurological Exam Neurological Exam: Altered, Awake Assessment and Plan - Assessment and Plan (Free Text) Assessment: 77yo male a/w AMS, severe Sepsis AMS Severe Sepsis Rhabdomyolosis Hx EtOH abuse NSTEMI - currently afebrile, HD stable, in Afib 80-90s off cardizem drip - on exam, patient is awake, responds to painful/verbal stimuli, but does not follow commands, moves all 4 ext, protecting airway - initial CTH neg, awaiting MRI brain - microbiology cultures thus far neg Recommend: - supp o2 as needed - antibiotics as per ID - follow up cultures - BP control - follow up neurology - needs MRI brain, may need EEG as well - check RPR, TSH, Folate, B12 levels - MVT, Thiamine, Folic Acid, B12 via NGT - IV hydration - cont with BB, Heparin, ASA, Statin - GI ppx - DVT ppx critical care time 40 minutes
--- NOTE | 2017-08-31 10:32 | CP.PCM.PN ---
Subjective - Date & Time of Evaluation Date of Evaluation: 08/31/17 Time of Evaluation: 10:10 - Subjective Subjective: Trying to communicate but has unintelligible speech currently, no fevers overnight, not in distress. Still with NGT in place. Objective - Vital Signs/Intake and Output Vital Signs (last 24 hours): Temp Pulse Resp BP Pulse Ox 99.6 F 66 23 134/94 H 99 08/31/17 04:00 08/30/17 14:00 08/30/17 06:20 08/30/17 09:01 08/30/17 06:30 Intake and Output: 08/30/17 08/31/17 18:59 06:59 Intake Total 1282 1030 Output Total 500 750 Balance 782 280 - Medications Medications: Current Medications Atorvastatin Calcium (Lipitor) 20 mg NG DAILY [facility] Last Admin: 08/30/17 09:00 Dose: 20 mg Hydralazine HCl (Apresoline) 10 mg IVP Q6 PRN PRN Reason: Systolic Blood Pressure Heparin Sodium/Sodium Chloride (Heparin 17351 Units/250ml 1/2 Normal Saline) 25 ,000 units in 250 mls @ 10.173 mls/hr IV .Q24H PRN; Protocol; 18 UNITS/KG/HR PRN Reason: ADJUST RATE PER PROTOCOL Last Admin: 08/31/17 03:57 Dose: 13.97 units/kg/hr, 7.9 mls/hr diltiaZEM IVPB 100mg in NS (Cardizem 100mg In Ns) 100 mls @ 5 mls/hr IV .Q20H PRN; Protocol; 5 MG/HR PRN Reason: TITRATE PER MD ORDER Last Admin: 08/30/17 00:05 Dose: 5 mg/hr, 5 mls/hr Cefepime HCl (Maxipime 1gm) 1 gm in 100 mls @ 100 mls/hr IVPB Q12 [facility] PRN Reason: Protocol Stop: 09/08/17 10:01 Last Admin: 08/30/17 22:00 Dose: 100 mls/hr Folic Acid 1 mg/ Thiamine HCl 100 mg/ Multivitamins/Vitamin C 10 ml/ Dextrose 1 ,011.2 mls @ 75 mls/hr IV .[id number] [facility] Last Admin: 08/31/17 01:30 Dose: 75 mls/hr Ibuprofen (Motrin Oral Susp) 100 mg PO Q6H PRN PRN Reason: Fever >100.4 F Last Admin: 08/30/17 08:00 Dose: 100 mg Lorazepam (Ativan) 1 mg IVP Q6H PRN; Protocol PRN Reason: Anxiety Last Admin: 08/30/17 22:56 Dose: 1 mg Metoprolol Tartrate (Lopressor) 50 mg NG BID [facility] Last Admin: 08/30/17 09:01 Dose: 50 mg - Labs Labs: 08/30/17 05:30 08/30/17 05:30 PT 15.4 SECONDS (9.4-12.5) H 08/29/17 12:30 INR 1.39 (0.93-1.08) H 08/29/17 12:30 APTT 30.0 Seconds (25.1-36.5) 08/30/17 19:55 - Constitutional Appears: Chronically Ill - Head Exam Head Exam: NORMAL INSPECTION - ENT Exam Additional comments: NGT in place - Neck Exam Neck Exam: absent: Meningismus - Respiratory Exam Respiratory Exam: Decreased Breath Sounds. absent: Rales - Cardiovascular Exam Cardiovascular Exam: +S1, +S2 - GI/Abdominal Exam GI & Abdominal Exam: Soft. absent: Tenderness Assessment and Plan - Assessment and Plan (Free Text) Plan: Assessment Systemic Inflammatory Response Syndrome probably due to acute CVA and NSTEMI with acute atrial flutter and AV block, as well as acute renal failure from rhabdomyolysis R/O sepsis, source to be determined COPD chronic anemia CAD Plan on Vancomycin and Cefepime day 2; blood and urine cx are negative so far; PCT is elevated but patient has acute renal failure CXR does not show infiltrates - if repeat CXR does not show infiltrates and cultures continue to be negative, will d/c antibiotics will monitor clinically
--- NOTE | 2017-08-31 12:43 | US ---
HISTORY: inc LFT S COMPARISON: CT abdomen and pelvis from 09/12/2016 TECHNIQUE: Grayscale imaging was performed. FINDINGS: LIVER: Measures 13.3 cm. Normal echogenicity of the liver parenchyma. No mass. No intrahepatic bile duct dilatation. GALLBLADDER: Surgically absent. COMMON BILE DUCT: Measures 4.0 mm. No stones. No dilatation. PANCREAS: Normal in size and echotexture. No mass. No ductal dilatation. RIGHT KIDNEY: Measures 11.0cm. Normal echogenicity. No calculus, mass, or hydronephrosis. LEFT KIDNEY: Measures 9.0cm. Normal echogenicity. No calculus, mass, or hydronephrosis. SPLEEN: Normal in size and contour. No mass. AORTA: No aneurysmal dilatation. IVC: Unremarkable. OTHER FINDINGS: Incidental note is made of small right pleural effusion. IMPRESSION: Status post cholecystectomy, unremarkable examination. Small right pleural effusion.
--- NOTE | 2017-08-31 12:51 | CP.PCM.PN ---
<Tran Herndon - Last Filed: 08/31/17 17:58> Subjective - Date & Time of Evaluation Date of Evaluation: 08/31/17 Time of Evaluation: 09:00 - Subjective Subjective: PGY-[address] Currie's service Patient seen and examined at bedside in ICU. No acute distress. Patient alert and speaking however he is not oriented. He does not follow commend. Objective - Vital Signs/Intake and Output Vital Signs (last 24 hours): Temp Pulse Resp BP Pulse Ox 99.6 F 88 23 179/113 H 99 08/31/17 04:00 08/31/17 09:06 08/30/17 06:20 08/31/17 09:06 08/30/17 06:30 Intake and Output: 08/31/17 08/31/17 06:59 18:59 Intake Total 1030 150 Output Total 750 Balance 280 150 - Medications Medications: Current Medications Atorvastatin Calcium (Lipitor) 20 mg NG DAILY [facility] Last Admin: 08/30/17 09:00 Dose: 20 mg Folic Acid (Folic Acid) 1 mg PO DAILY [facility] Hydralazine HCl (Apresoline) 10 mg IVP Q6 PRN PRN Reason: Systolic Blood Pressure Heparin Sodium/Sodium Chloride (Heparin 47611 Units/250ml 1/2 Normal Saline) 25 ,000 units in 250 mls @ 10.173 mls/hr IV .Q24H PRN; Protocol; 18 UNITS/KG/HR PRN Reason: ADJUST RATE PER PROTOCOL Last Titration: 08/31/17 07:45 Dose: 12 units/kg/hr, 6.782 mls/hr diltiaZEM IVPB 100mg in NS (Cardizem 100mg In Ns) 100 mls @ 5 mls/hr IV .Q20H PRN; Protocol; 5 MG/HR PRN Reason: TITRATE PER MD ORDER Last Admin: 08/30/17 00:05 Dose: 5 mg/hr, 5 mls/hr Cefepime HCl (Maxipime 1gm) 1 gm in 100 mls @ 100 mls/hr IVPB Q12 [facility] PRN Reason: Protocol Stop: 09/08/17 10:01 Last Admin: 08/31/17 09:05 Dose: 100 mls/hr Sodium Chloride (Sodium Chloride 0.9%) 1,000 mls @ 125 mls/hr IV .Q8H [facility] Last Admin: 08/31/17 09:52 Dose: 125 mls/hr Lorazepam (Ativan) 1 mg IVP Q6H PRN; Protocol PRN Reason: Anxiety Last Admin: 08/30/17 22:56 Dose: 1 mg Metoprolol Tartrate (Lopressor) 50 mg NG BID [facility] Last Admin: 08/31/17 09:06 Dose: 50 mg Multivitamins (Thera Tab) 1 tab PO 0800 [facility] Thiamine HCl (Vitamin B1 Tab) 100 mg PO DAILY [facility] - Labs Labs: 08/31/17 06:00 08/31/17 06:00 PT 15.4 SECONDS (9.4-12.5) H 08/29/17 12:30 INR 1.39 (0.93-1.08) H 08/29/17 12:30 APTT 85.3 Seconds (25.1-36.5) H 08/31/17 06:00 - Constitutional Appears: No Acute Distress - Head Exam Head Exam: ATRAUMATIC, NORMAL INSPECTION, NORMOCEPHALIC - Eye Exam Eye Exam: EOMI, Normal appearance - ENT Exam ENT Exam: Mucous Membranes Moist - Respiratory Exam Respiratory Exam: Clear to Ausculation Bilateral, NORMAL BREATHING PATTERN. absent: Respiratory Distress - Cardiovascular Exam Cardiovascular Exam: REGULAR RHYTHM - Extremities Exam Extremities Exam: Normal Inspection - Neurological Exam Neurological Exam: Alert, Awake. absent: Oriented x3 - Skin Skin Exam: Dry, Intact, Normal Color, Warm Assessment and Plan - Assessment and Plan (Free Text) Assessment: 77 yo male with unknown PMH presents with unresponsiveness due to CVA vs sepsis 1. possible CVA 2. SIRS 3. a. fib 4. NSTEMI 5. rhabdomyolysis 6. uncontrolled HTN - CT head is negative - MRI and MRA ordered - control BP, SBP between 130-140 - treat NSTEMI - monitor electrolytes, replace as needed - PT/OT when more alert - avoid sedative medication Case reviewed and discussed with Dr. Currie <Raudel Currie - Last Filed: 08/31/17 22:00> Objective - Vital Signs/Intake and Output Vital Signs (last 24 hours): Temp Pulse Resp BP Pulse Ox 98.1 F 88 21 156/88 H 94 L 08/31/17 20:00 08/31/17 21:20 08/31/17 21:10 08/31/17 20:45 08/31/17 21:20 Intake and Output: 08/31/17 09/01/17 18:59 06:59 Intake Total 1725 Output Total 550 Balance 1175 - Medications Medications: Current Medications Aspirin (Aspirin Chewable) 81 mg PO DAILY [facility] Last Admin: 08/31/17 14:36 Dose: 81 mg Atorvastatin Calcium (Lipitor) 20 mg NG DAILY [facility] Last Admin: 08/30/17 09:00 Dose: 20 mg Folic Acid (Folic Acid) 1 mg PO DAILY [facility] Hydralazine HCl (Apresoline) 10 mg IVP Q6 PRN PRN Reason: Systolic Blood Pressure Heparin Sodium/Sodium Chloride (Heparin 30847 Units/250ml 1/2 Normal Saline) 25 ,000 units in 250 mls @ 10.173 mls/hr IV .Q24H PRN; Protocol; 18 UNITS/KG/HR PRN Reason: ADJUST RATE PER PROTOCOL Last Titration: 08/31/17 07:45 Dose: 12 units/kg/hr, 6.782 mls/hr diltiaZEM IVPB 100mg in NS (Cardizem 100mg In Ns) 100 mls @ 5 mls/hr IV .Q20H PRN; Protocol; 5 MG/HR PRN Reason: TITRATE PER MD ORDER Last Admin: 08/30/17 00:05 Dose: 5 mg/hr, 5 mls/hr Cefepime HCl (Maxipime 1gm) 1 gm in 100 mls @ 100 mls/hr IVPB Q12 [facility] PRN Reason: Protocol Stop: 09/08/17 10:01 Last Admin: 08/31/17 09:05 Dose: 100 mls/hr Sodium Chloride (Sodium Chloride 0.9%) 1,000 mls @ 125 mls/hr IV .Q8H [facility] Last Admin: 08/31/17 19:42 Dose: 125 mls/hr Lorazepam (Ativan) 1 mg IVP Q6H PRN; Protocol PRN Reason: Anxiety Last Admin: 08/30/17 22:56 Dose: 1 mg Metoprolol Tartrate (Lopressor) 50 mg NG BID [facility] Last Admin: 08/31/17 17:35 Dose: 50 mg Multivitamins (Thera Tab) 1 tab PO 0800 [facility] Thiamine HCl (Vitamin B1 Tab) 100 mg PO DAILY [facility] - Labs Labs: 08/31/17 06:00 08/31/17 06:00 PT 15.4 SECONDS (9.4-12.5) H 08/29/17 12:30 INR 1.39 (0.93-1.08) H 08/29/17 12:30 APTT 55.9 Seconds (25.1-36.5) H 08/31/17 13:50 Attending/Attestation - Attestation I have personally seen and examined this patient.: Yes I have fully participated in the care of the patient.: Yes I have reviewed all pertinent clinical information, including history, physical exam and plan: Yes
--- NOTE | 2017-08-31 16:13 | PN ---
DATE: 08/31/2017 REASON FOR CONSULTATION AND FOLLOWUP: AFib and CVA. SUBJECTIVE: The patient is lying, not in apparent distress, noncommunicable. PHYSICAL EXAMINATION: GENERAL: Not in apparent distress. VITAL SIGNS: As follows; temperature afebrile, heart rate 88,Temperature 99.6, and blood pressure 179/113. HEENT: PERRLA. Extraocular muscles intact. NECK: Supple. No carotid bruit or thyromegaly. CHEST: Clear to auscultation. HEART: S1 and S2. Irregular . ABDOMEN: Soft. EXTREMITIES: Clubbing and cyanosis negative. LABORATORY DATA: Blood workup as follows: WBC 23.6, hemoglobin 13, hematocrit 39.8, and platelet count 210. Chemistry shows sodium 134, potassium 3.8, chloride 100, carbon dioxide 26, anion gap of 12, BUN 29, and creatinine 1.5. Troponin 1.10 and 1.48. IMPRESSION: Acute cerebrovascular accident. Positive for non-ST segment myocardial infarction, sepsis, acute cerebrovascular accident with right-sided hemiparesis, expressive aphasia, and atrial fibrillation. RECOMMENDATIONS: Continue intravenous heparin. Continue metoprolol, rate is well controlled. Continue broad-spectrum antibiotic. Awaiting for neuro work , MRI and CAT scan. We will get echo to assess LV function. We will put on aspirin 81 mg daily. We will follow with you. Thank you Dr. Taylor for providing us the opportunity in taking care of the patient, Abhinav Farfan. Paresh Reaves MD MTDD
--- NOTE | 2017-08-31 16:22 | CARD ---
APPROVED REPORT EXAM: Two-dimensional and M-mode echocardiogram with Doppler and color Doppler. INDICATION CVA/TIA 2D DIMENSIONS Left Atrium (2D)4.4 (1.6-4.0cm)IVSd1.2 (0.7-1.1cm) LVDd4.5 (3.9-5.9cm)PWd1.3 (0.7-1.1cm) LVDs3.8 (2.5-4.0cm)FS (%) 15.3 % LVEF (%)33.0 (>50%) M-Mode DIMENSIONS Aortic Root3.90 (2.2-3.7cm)Aortic Cusp Exc.1.10 (1.5-2.0cm) Aortic Valve AoV Peak Qwftvjrk707.0cm/López Peak GR.8mmHg Mitral Valve E/A ratio0.0 TDI E/Lateral E'0.0E/Medial E'0.0 Pulmonary Valve PV Peak Vvglhhvh30.8cm/sPV Peak Grad.1mmHg Tricuspid Valve TR Peak [id number]/sRAP [id number] Peak Gr.39mmHg [id number] LEFT VENTRICLE The left ventricle is normal size. There is normal left ventricular wall thickness. The systolic function is severely impaired. There is global hypokinesis of the left ventricle. RIGHT VENTRICLE The right ventricle is normal size. The right ventricular Systolic function is mildly reduced. ATRIA The left atrium is mildly dilated. The right atrium is mildly dilated. AORTIC VALVE The aortic valve is mildly to moderately sclerotic. There is mild aortic regurgitation. MITRAL VALVE Mitral regurgitation is moderate. TRICUSPID VALVE There is mild to moderate pulmonary hypertension. GREAT VESSELS The aortic root is mildly enlarged. <Conclusion> The left ventricle is normal size. There is normal left ventricular wall thickness. The systolic function is severely impaired. There is global hypokinesis of the left ventricle. There is mild aortic regurgitation. Mitral regurgitation is moderate. There is mild to moderate pulmonary hypertension.
--- NOTE | 2017-08-31 22:01 | PN ---
DATE: 08/30/2017 SUBJECTIVE: The patient is a 77-year-old male with a history of coronary artery disease status post PTCA, inguinal hernia, COPD, who was found on the floor at home, unknown downtime. He was not seen by neighbor for few days prior to this discovery. He was brought to the emergency room where he was found to have elevated troponins. Today, the troponins went from 0.57-1.10, this morning it is up to 1.48. EKG showed atrial flutter with left ventricular hypertrophy. He also had an elevated white blood cell count. LABORATORY DATA: This morning, white blood cells are 24.6, hemoglobin and hematocrit are 12.6 and 39.4 respectively platelets 228. Blood urea nitrogen is 41, creatinine is 1.8, sodium is 137, potassium 4.0 this morning. Procalcitonin was 37.83. Blood and urine cultures are negative. The patient was found to be AB+ type blood. PHYSICAL EXAMINATION VITAL SIGNS: He was febrile today; however, with a temperature of 101.5 degrees Fahrenheit, his blood pressure is 134/94. X-rays of the hip and pelvis were negative for fracture. The patient's gaze is still upward and to the left. The patient apparently was agitated earlier while in the day as per the nursing staff, frequently tried to climb out of bed. So, he was admitted with a diagnosis of myocardial infarction based on cardiac enzymes, cerebrovascular accident based on his upward gaze to the left. Sepsis because of his white blood cell count elevation and procalcitonin elevation; although, blood and urine cultures are negative to date. We are continuing to follow the patient closely. I discussed the case with his youngest brother, Janak and we will continue to keep him informed as to the patient's status. Catarino Taylor MD MTDD
--- NOTE | 2017-09-01 03:04 | HP ---
HISTORY OF PRESENT ILLNESS: The patient is a 77-year-old male who had not been seen by his neighbor for few days, therefore the neighbor came to looking on him, found him on the floor of the bathroom, squad was called, and the patient was brought to the emergency room and is admitted. He was relatively unresponsive. Gaze was upward and to the left. He was not responding to verbal stimuli. He was responding to tactile stimuli. PAST MEDICAL HISTORY: The patient is known to have a past medical history positive for coronary artery disease, myocardial infarction in 2009 with catheterization and PTCA in 2009 and again in 2011. He had a right inguinal hernia repair in 2007, status post lap drake in 1998. He also has a history of COPD and mild presbycusis. ALLERGIES: HE HAS NO KNOWN MEDICAL ALLERGIES. SOCIAL HISTORY: Discontinued smoking cigarettes in 2011. Discontinued alcohol, but drinks one cup of coffee a day. He is retired since 1997 from the [employer]. He is and has two daughters living in [facility]. The patient was found at home as mentioned above. In the emergency room, his blood pressure was 108/93, heart rate of 130, and rectal temperature was 98.4 degrees Fahrenheit. CAT scan of the head was performed in the emergency room, which showed no acute findings. Chest x-ray was done shows no active disease. His arms are rather stiff and contracted. PHYSICAL EXAMINATION: NEUROLOGIC: The patient is aphasic. He has a left-sided upward gaze. He was tremulous. LUNGS: Appeared cleared to pulmonary auscultation. HEART: Regular, but tachycardic. EXTREMITIES: Free of cyanosis, clubbing, or edema. LABORATORY DATA: Shows the white blood cell count to be 21.2 and hemoglobin and hematocrit 12.8 and 39.5 respectively. BUN was 29, creatinine was 1.7, and glucose was 116. Lactate dehydrogenase was elevated at 1333. CK was elevated at 4782. Troponins were elevated at 0.57. Urinalysis showed large amount of blood. ASSESSMENT AND PLAN: So, the patient is admitted to the Intensive Care Unit with a diagnosis of cerebrovascular accident, sepsis, atrial fibrillation/flutter, myocardial infarction, and pneumonia. Procalcitonin was elevated at 37.83. The patient is admitted to the Intensive Care Unit and started on IV antibiotics and IV fluids. He will be followed closely. Catarino Taylor MD
[2017-09-01] MEDS: Sodium Chloride 0.9% 1,000 ML IV SCH ×3 (05:50→15:46)
[2017-09-01 07:24] LABS: BASO # 0.01 K/mm3 (0.0-2.0); BASO % 0.1 % (0.0-3.0); GRAN # 12.16 (1.4-6.5); GRAN % 79.2 % (50.0-68.0); HEMATOCRIT 37.9 % (42.0-52.0); LYMPH # 1.6 (1.2-3.4); LYMPH % 10.2 % (22.0-35.0); MEAN CELL VOLUME 87.7 fl (80.0-105.0); MEAN CORPUSCULAR HEMOGLOBIN 28.2 pg (25.0-35.0); MEAN CORPUSCULAR HGB CONC 32.2 g/dl (31.0-37.0); MEAN PLATELET VOLUME 12.2 fl (7.0-11.0); MONO # 1.6 (0.1-0.6); MONO % 10.5 % (1.0-6.0); WHITE BLOOD COUNT 15.4 10^3/ul (4.5-11.0)
[2017-09-01 08:24] LABS: BILIRUBIN,TOTAL 1.1 mg/dL (0.2-1.3); CALCIUM 8.3 mg/dL (8.4-10.5); MAGNESIUM 1.8 mg/dL (1.7-2.2); PHOSPHOROUS 2.1 mg/dL (2.5-4.5); TOTAL PROTEIN 5.8 g/dL (5.8-8.3)
[2017-09-01 08:27] LABS: POTASSIUM 3.9 mmol/L (3.6-5.0)
--- NOTE | 2017-09-01 08:37 | CP.CCUPN ---
<Michael Apodaca - Last Filed: 09/01/17 10:08> CCU Subjective - Physician Review Events Since Last Encounter (Free Text): 09/01/17 08:[address] Lucas Pt seen and examined at bedside. No acute events overnight. Patient more responsive today, somnolent but responds to questions. Follows simple commands. Oriented x2, does not know time or situation. Denies any complaints. CCU Objective - Vital Signs / Intake & Output Vital Signs (Last 4 hours): Vital Signs Pulse Resp BP Pulse Ox 09/01/17 08:10 104 H 23 92 L 09/01/17 08:00 93 H 23 100 09/01/17 07:50 102 H 18 85 L 09/01/17 07:45 102 H 20 151/99 H 87 L 09/01/17 07:40 95 H 28 H 100 09/01/17 07:30 102 H 23 89 L 09/01/17 07:20 91 H 17 100 09/01/17 07:10 90 22 100 09/01/17 07:00 103 H 26 H 100 09/01/17 06:50 90 19 100 09/01/17 06:45 91 H 21 174/107 H 100 09/01/17 06:40 95 H 21 100 09/01/17 06:30 95 H 10 L 100 09/01/17 06:20 95 H 21 100 09/01/17 06:10 97 H 26 H 100 09/01/17 06:00 101 H 21 100 09/01/17 05:50 104 H 23 98 09/01/17 05:47 108 H 25 H 172/85 H 97 09/01/17 05:40 119 H 29 H 94 L 09/01/17 05:30 112 H 22 96 09/01/17 05:20 107 H 23 82 L 09/01/17 05:10 102 H 22 100 09/01/17 05:04 104 H 19 09/01/17 05:00 118 H 28 H 79 L 09/01/17 04:50 112 H 20 75 L 09/01/17 04:45 92 H 22 165/94 H 100 09/01/17 04:40 90 20 100 09/01/17 04:30 93 H 17 100 Intake and Output (Last 8hrs): Intake & Output 11/09/01/17 09/01/17 22:59 06:59 14:59 Intake Total 1575 1680 60 Output Total 550 750 Balance 1025 930 60 Intake: IV 1575 1680 60 Right Forearm 1575 1680 Oral 0 Output: Urine 550 750 Urethral (Melgar) 550 750 Other: # Bowel Movements 0 - Physical Exam Physical Exam Limitations: Positive for: Altered Mental Status Head: Positive for: Atraumatic, Normocephalic Extroacular Muscles: Positive for: EOMI Conjunctiva: Positive for: Normal Mouth: Positive for: Moist Mucous Membranes Respiratory/Chest: Positive for: Good Air Exchange. Negative for: Respiratory Distress, Accessory Muscle Use, Wheezes Cardiovascular: Positive for: Normal S1, S2, Tachycardic Abdomen: Negative for: Tenderness, Distention Upper Extremity: Positive for: Normal Inspection Lower Extremity: Positive for: Normal Inspection. 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) Psychiatric: Positive for: Alert, Oriented x 3 - Medications Active Medications: Active Medications Generic Name Dose Route Start Last Admin Trade Name Freq PRN Reason Stop Dose Admin Aspirin 81 mg 08/31/17 13:45 08/31/17 14:36 Aspirin Chewable PO 81 mg DAILY BERTO Administration Atorvastatin Calcium 20 mg 08/29/17 16:45 08/30/17 09:00 Lipitor NG 20 mg DAILY BERTO Administration Folic Acid 1 mg 09/01/17 10:00 Folic Acid PO DAILY [facility] Hydralazine HCl 10 mg 08/29/17 21:40 Apresoline IVP Q6 PRN Systolic Blood Pressure Heparin Sodium/Sodium Chloride 25,000 units in 250 mls @ 10.173 mls/hr 16:15 09/01/17 08:00 Heparin 22329 Units/250ml 1/2 Normal Saline IV 14 units/kg/hr .Q24H PRN 7.913 mls/hr ADJUST RATE PER PROTOCOL Titration Protocol 18 UNITS/KG/HR diltiaZEM IVPB 100mg in NS 100 mls @ 5 mls/hr 08/29/17 17:55 08/30/17 00:05 Cardizem 100mg In Ns IV 5 mg/hr .Q20H PRN 5 mls/hr TITRATE PER MD ORDER Administration Protocol 5 MG/HR Sodium Chloride 1,000 mls @ 125 mls/hr 08/31/17 09:00 09/01/17 05:50 Sodium Chloride 0.9% IV 125 mls/hr .Q8H BERTO Administration Lorazepam 1 mg 08/30/17 13:28 08/30/17 22:56 Ativan IVP 1 mg Q6H PRN Administration Anxiety Protocol Metoprolol Tartrate 50 mg 08/29/17 18:00 08/31/17 17:35 Lopressor NG 50 mg BID BERTO Administration Multivitamins 1 tab 09/01/17 08:00 Thera Tab PO 0800 BERTO Thiamine HCl 100 mg 09/01/17 10:00 Vitamin B1 Tab PO DAILY BERTO - Patient Studies Lab Studies: Microbiology Studies 08/29/17 19:35 MRSA Culture (Admit) - Final Axilla MRSA NOT DETECTED Lab Studies 09/01/17 09/01/17 08/31/17 Range/Units 06:00 06:00 13:50 WBC 15.4 H D (4.5-11.0) 10^3/ul RBC 4.32 (3.5-6.1) 10^6/uL Hgb 12.2 L (14.0-18.0) g/dL Hct 37.9 L (42.0-52.0) % MCV 87.7 (80.0-105.0) fl MCH 28.2 (25.0-35.0) pg MCHC 32.2 (31.0-37.0) g/dl RDW 14.0 (11.5-14.5) % Plt Count 186 (120.0-450.0) 10^3/uL MPV 12.2 H (7.0-11.0) fl Gran % 79.2 H (50.0-68.0) % Lymph % (Auto) 10.2 L (22.0-35.0) % [place] % (Auto) 10.5 H (1.0-6.0) % Eos % (Auto) 0.0 L (1.5-5.0) % Baso % (Auto) 0.1 (0.0-3.0) % Gran # 12.16 H (1.4-6.5) Lymph # 1.6 (1.2-3.4) [place] # 1.6 H (0.1-0.6) Eos # 0.0 (0.0-0.7) Baso # 0.01 (0.0-2.0) K/mm3 APTT 35.9 55.9 H (25.1-36.5) Seconds HIV 1&2 Ag/Ab, 4th Gen (Nonreactive) 08/30/17 Range/Units 08:40 WBC (4.5-11.0) 10^3/ul RBC (3.5-6.1) 10^6/uL Hgb (14.0-18.0) g/dL Hct (42.0-52.0) % MCV (80.0-105.0) fl MCH (25.0-35.0) pg MCHC (31.0-37.0) g/dl RDW (11.5-14.5) % Plt Count (120.0-450.0) 10^3/uL MPV (7.0-11.0) fl Gran % (50.0-68.0) % Lymph % (Auto) (22.0-35.0) % [place] % (Auto) (1.0-6.0) % Eos % (Auto) (1.5-5.0) % Baso % (Auto) (0.0-3.0) % Gran # (1.4-6.5) Lymph # (1.2-3.4) [place] # (0.1-0.6) Eos # (0.0-0.7) Baso # (0.0-2.0) K/mm3 APTT (25.1-36.5) Seconds HIV 1&2 Ag/Ab, 4th Gen Nonreactive (Nonreactive) Laboratory Results - last 24 hr 08/30/17 08/31/17 09/01/17 08:40 13:50 06:00 WBC RBC Hgb Hct MCV MCH MCHC RDW Plt Count MPV Gran % Lymph % (Auto) [place] % (Auto) Eos % (Auto) Baso % (Auto) Gran # Lymph # [place] # Eos # Baso # APTT 55.9 H 35.9 HIV 1&2 Ag/Ab, 4th Gen Nonreactive 09/01/17 06:00 WBC 15.4 H D RBC 4.32 Hgb 12.2 L Hct 37.9 L MCV 87.7 MCH 28.2 MCHC 32.2 RDW 14.0 Plt Count 186 MPV 12.2 H Gran % 79.2 H Lymph % (Auto) 10.2 L [place] % (Auto) 10.5 H Eos % (Auto) 0.0 L Baso % (Auto) 0.1 Gran # 12.16 H Lymph # 1.6 [place] # 1.6 H Eos # 0.0 Baso # 0.01 APTT HIV 1&2 Ag/Ab, 4th Gen Fingerstick Blood Sugar Results: 95 Assessment/Plan - Assessment and Plan (Free Text) Assessment: 77yo M with altered mental status and SIRS. 1. AMS CT head negative neuro following A&O x 2 this morning, follows simple commands Awaiting MRI f/u Speech and Swallow eval 2. SIRS Low suspicion for infectious source. Procal elevated in the setting of negative cultures. Abx discontinued as per ID Cultures negative 3. Rhabdomyolosis in the setting of found down on floor Continue IVF 4. Hx of ETOH abuse MVI Folic Acid Thiamine 5. NSTEMI and New onset A.Fib Heparin ggt as per protocol ASA Metoprolol Statin currently on hold due to Liver dysfunction Cardiology following will repeat Troponin 6. PPx Protonix Heparin ggt Discussed case with Dr. Lance Apodaca PGY1 <Francisco Lucas - Last Filed: 09/01/17 10:50> CCU Objective - Vital Signs / Intake & Output Vital Signs (Last 4 hours): Vital Signs Temp Pulse Resp BP Pulse Ox 09/01/17 09:52 106 H 167/107 H 09/01/17 09:00 106 H 27 H 99 09/01/17 08:50 100 H 21 09/01/17 08:49 104 H 15 09/01/17 08:45 119 H 17 143/99 H 79 L 09/01/17 08:40 92 H 22 100 09/01/17 08:30 100 H 23 100 09/01/17 08:20 76 19 100 09/01/17 08:10 104 H 23 92 L 09/01/17 08:00 99.4 F 93 H 23 100 09/01/17 07:50 102 H 18 85 L 09/01/17 07:45 102 H 20 151/99 H 87 L 09/01/17 07:40 95 H 28 H 100 09/01/17 07:30 102 H 23 89 L 09/01/17 07:20 91 H 17 100 09/01/17 07:10 90 22 100 09/01/17 07:00 103 H 26 H 100 09/01/17 06:50 90 19 100 Intake and Output (Last 8hrs): Intake & Output 08/31/17 09/01/17 09/01/17 22:59 06:59 14:59 Intake Total 1575 1680 60 Output Total 550 750 Balance 1025 930 60 Intake: IV 1575 1680 60 Right Forearm 1575 1680 Oral 0 Output: Urine 550 750 Urethral (Melgar) 550 750 Other: # Bowel Movements 0 - Medications Active Medications: Active Medications Generic Name Dose Route Start Last Admin Trade Name Freq PRN Reason Stop Dose Admin Aspirin 81 mg 08/31/17 13:45 09/01/17 09:52 Aspirin Chewable PO 81 mg DAILY BERTO Administration Atorvastatin Calcium 20 mg 08/29/17 16:45 08/30/17 09:00 Lipitor NG 20 mg DAILY BERTO Administration Folic Acid 1 mg 09/01/17 10:00 09/01/17 09:53 Folic Acid PO 1 mg DAILY BERTO Administration Hydralazine HCl 10 mg 08/29/17 21:40 Apresoline IVP Q6 PRN Systolic Blood Pressure Heparin Sodium/Sodium Chloride 25,000 units in 250 mls @ 10.173 mls/hr 16:15 09/01/17 08:00 Heparin 59394 Units/250ml 1/2 Normal Saline IV 14 units/kg/hr .Q24H PRN 7.913 mls/hr ADJUST RATE PER PROTOCOL Titration Protocol 18 UNITS/KG/HR diltiaZEM IVPB 100mg in NS 100 mls @ 5 mls/hr 08/29/17 17:55 08/30/17 00:05 Cardizem 100mg In Ns IV 5 mg/hr .Q20H PRN 5 mls/hr TITRATE PER MD ORDER Administration Protocol 5 MG/HR Sodium Chloride 1,000 mls @ 125 mls/hr 08/31/17 09:00 09/01/17 05:50 Sodium Chloride 0.9% IV 125 mls/hr .Q8H BERTO Administration Lorazepam 1 mg 08/30/17 13:28 08/30/17 22:56 Ativan IVP 1 mg Q6H PRN Administration Anxiety Protocol Metoprolol Tartrate 50 mg 08/29/17 18:00 09/01/17 09:52 Lopressor NG 50 mg BID BERTO Administration Multivitamins 1 tab 09/01/17 08:00 09/01/17 08:40 Thera Tab PO 1 tab 0800 BERTO Administration Pantoprazole Sodium 40 mg 09/01/17 10:00 09/01/17 09:52 Protonix Inj IVP 40 mg DAILY BERTO Administration Thiamine HCl 100 mg 09/01/17 10:00 09/01/17 09:52 Vitamin B1 Tab PO 100 mg DAILY BERTO Administration - Patient Studies Lab Studies: Microbiology Studies 08/29/17 19:35 MRSA Culture (Admit) - Final Axilla MRSA NOT DETECTED Lab Studies 09/01/17 09/01/17 09/01/17 Range/Units 06:30 06:00 06:00 WBC 15.4 H D (4.5-11.0) 10^3/ul RBC 4.32 (3.5-6.1) 10^6/uL Hgb 12.2 L (14.0-18.0) g/dL Hct 37.9 L (42.0-52.0) % MCV 87.7 (80.0-105.0) fl MCH 28.2 (25.0-35.0) pg MCHC 32.2 (31.0-37.0) g/dl RDW 14.0 (11.5-14.5) % Plt Count 186 (120.0-450.0) 10^3/uL MPV 12.2 H (7.0-11.0) fl Gran % 79.2 H (50.0-68.0) % Lymph % (Auto) 10.2 L (22.0-35.0) % [place] % (Auto) 10.5 H (1.0-6.0) % Eos % (Auto) 0.0 L (1.5-5.0) % Baso % (Auto) 0.1 (0.0-3.0) % Gran # 12.16 H (1.4-6.5) Lymph # 1.6 (1.2-3.4) [place] # 1.6 H (0.1-0.6) Eos # 0.0 (0.0-0.7) Baso # 0.01 (0.0-2.0) K/mm3 APTT (25.1-36.5) Seconds Sodium 135 (132-148) mmol/L Potassium 3.9 (3.6-5.0) mmol/L Chloride 103 (98-107) mmol/L Carbon Dioxide 21 (21-33) mmol/L Anion Gap 15 (10-20) BUN 35 H (7-21) mg/dL Creatinine 1.4 (0.8-1.5) mg/dl Est GFR ( Amer) 59 Est GFR (Non-Af Amer) 49 Random Glucose 70 (70-110) mg/dL Calcium 8.3 L (8.4-10.5) mg/dL Phosphorus 2.1 L (2.5-4.5) mg/dL Magnesium 1.8 (1.7-2.2) mg/dL Total Bilirubin 1.1 (0.2-1.3) mg/dL AST 136 H D (17-59) U/L ALT 64 H (7-56) U/L Alkaline Phosphatase 78 (38-126) U/L Troponin I 0.58 H* D ng/mL Total Protein 5.8 (5.8-8.3) g/dL Albumin 2.9 L (3.0-4.8) g/dL Globulin 2.8 gm/dL Albumin/Globulin Ratio 1.0 L (1.1-1.8) HIV 1&2 Ag/Ab, 4th Gen (Nonreactive) 09/01/17 08/31/17 08/30/17 Range/Units 06:00 13:50 08:40 WBC (4.5-11.0) 10^3/ul RBC (3.5-6.1) 10^6/uL Hgb (14.0-18.0) g/dL Hct (42.0-52.0) % MCV (80.0-105.0) fl MCH (25.0-35.0) pg MCHC (31.0-37.0) g/dl RDW (11.5-14.5) % Plt Count (120.0-450.0) 10^3/uL MPV (7.0-11.0) fl Gran % (50.0-68.0) % Lymph % (Auto) (22.0-35.0) % [place] % (Auto) (1.0-6.0) % Eos % (Auto) (1.5-5.0) % Baso % (Auto) (0.0-3.0) % Gran # (1.4-6.5) Lymph # (1.2-3.4) [place] # (0.1-0.6) Eos # (0.0-0.7) Baso # (0.0-2.0) K/mm3 APTT 35.9 55.9 H (25.1-36.5) Seconds Sodium (132-148) mmol/L Potassium (3.6-5.0) mmol/L Chloride (98-107) mmol/L Carbon Dioxide (21-33) mmol/L Anion Gap (10-20) BUN (7-21) mg/dL Creatinine (0.8-1.5) mg/dl Est GFR ( Amer) Est GFR (Non-Af Amer) Random Glucose (70-110) mg/dL Calcium (8.4-10.5) mg/dL Phosphorus (2.5-4.5) mg/dL Magnesium (1.7-2.2) mg/dL Total Bilirubin (0.2-1.3) mg/dL AST (17-59) U/L ALT (7-56) U/L Alkaline Phosphatase (38-126) U/L Troponin I ng/mL Total Protein (5.8-8.3) g/dL Albumin (3.0-4.8) g/dL Globulin gm/dL Albumin/Globulin Ratio (1.1-1.8) HIV 1&2 Ag/Ab, 4th Gen Nonreactive (Nonreactive) Laboratory Results - last 24 hr 08/30/17 08/31/17 09/01/17 08:40 13:50 06:00 WBC RBC Hgb Hct MCV MCH MCHC RDW Plt Count MPV Gran % Lymph % (Auto) [place] % (Auto) Eos % (Auto) Baso % (Auto) Gran # Lymph # [place] # Eos # Baso # APTT 55.9 H 35.9 Sodium Potassium Chloride Carbon Dioxide Anion Gap BUN Creatinine Est GFR ( Amer) Est GFR (Non-Af Amer) Random Glucose Calcium Phosphorus Magnesium Total Bilirubin AST ALT Alkaline Phosphatase Troponin I Total Protein Albumin Globulin Albumin/Globulin Ratio HIV 1&2 Ag/Ab, 4th Gen Nonreactive 09/01/17 09/01/17 09/01/17 06:00 06:00 06:30 WBC 15.4 H D RBC 4.32 Hgb 12.2 L Hct 37.9 L MCV 87.7 MCH 28.2 MCHC 32.2 RDW 14.0 Plt Count 186 MPV 12.2 H Gran % 79.2 H Lymph % (Auto) 10.2 L [place] % (Auto) 10.5 H Eos % (Auto) 0.0 L Baso % (Auto) 0.1 Gran # 12.16 H Lymph # 1.6 [place] # 1.6 H Eos # 0.0 Baso # 0.01 APTT Sodium 135 Potassium 3.9 Chloride 103 Carbon Dioxide 21 Anion Gap 15 BUN 35 H Creatinine 1.4 Est GFR ( Amer) 59 Est GFR (Non-Af Amer) 49 Random Glucose 70 Calcium 8.3 L Phosphorus 2.1 L Magnesium 1.8 Total Bilirubin 1.1 AST 136 H D ALT 64 H Alkaline Phosphatase 78 Troponin I 0.58 H* D Total Protein 5.8 Albumin 2.9 L Globulin 2.8 Albumin/Globulin Ratio 1.0 L HIV 1&2 Ag/Ab, 4th Gen Assessment/Plan - Assessment and Plan (Free Text) Assessment: 10:48AM Patient seen and examined with resident on rounds, agree with note with following additions/exceptions: 77yo male a/w AMS, severe Sepsis. Currently afebrile HD stable, comfortable. On exam awake, alert, oriented x 2, following commands, mental status improving. MRI brain pending. ID is following. AMS Severe Sepsis Rhabdomyolosis Hx EtOH abuse NSTEMI - initial CTH neg, awaiting MRI brain - microbiology cultures thus far neg Recommend: - supp o2 as needed - antibiotics as per ID - follow up cultures - BP control - follow up neurology - needs MRI brain, may need EEG as well - follow up RPR, TSH, Folate, B12 levels - MVT, Thiamine, Folic Acid, B12 via NGT - IV hydration - cont with BB, Heparin, ASA, Statin - GI ppx - DVT ppx
[2017-09-01] MEDS: Multivitamin Therapeutic Tab PO SCH (08:40)
--- NOTE | 2017-09-01 09:31 | CP.PCM.PN ---
Subjective - Date & Time of Evaluation Date of Evaluation: 09/01/17 Time of Evaluation: 09:20 - Subjective Subjective: A little more awake today compared to yesterday, no overt fevers overnight, still with NGT, no diarrhea, no vomiting. Objective - Vital Signs/Intake and Output Vital Signs (last 24 hours): Temp Pulse Resp BP Pulse Ox 99.8 F H 95 H 21 172/85 H 100 09/01/17 04:00 09/01/17 06:20 09/01/17 06:20 09/01/17 05:47 09/01/17 06:20 Intake and Output: 08/31/17 09/01/17 18:59 06:59 Intake Total 1725 1680 Output Total 550 750 Balance 1175 930 - Medications Medications: Current Medications Aspirin (Aspirin Chewable) 81 mg PO DAILY [facility] Last Admin: 08/31/17 14:36 Dose: 81 mg Atorvastatin Calcium (Lipitor) 20 mg NG DAILY [facility] Last Admin: 08/30/17 09:00 Dose: 20 mg Folic Acid (Folic Acid) 1 mg PO DAILY [facility] Hydralazine HCl (Apresoline) 10 mg IVP Q6 PRN PRN Reason: Systolic Blood Pressure Heparin Sodium/Sodium Chloride (Heparin 85247 Units/250ml 1/2 Normal Saline) 25 ,000 units in 250 mls @ 10.173 mls/hr IV .Q24H PRN; Protocol; 18 UNITS/KG/HR PRN Reason: ADJUST RATE PER PROTOCOL Last Titration: 08/31/17 07:45 Dose: 12 units/kg/hr, 6.782 mls/hr diltiaZEM IVPB 100mg in NS (Cardizem 100mg In Ns) 100 mls @ 5 mls/hr IV .Q20H PRN; Protocol; 5 MG/HR PRN Reason: TITRATE PER MD ORDER Last Admin: 08/30/17 00:05 Dose: 5 mg/hr, 5 mls/hr Sodium Chloride (Sodium Chloride 0.9%) 1,000 mls @ 125 mls/hr IV .Q8H [facility] Last Admin: 09/01/17 05:50 Dose: 125 mls/hr Lorazepam (Ativan) 1 mg IVP Q6H PRN; Protocol PRN Reason: Anxiety Last Admin: 08/30/17 22:56 Dose: 1 mg Metoprolol Tartrate (Lopressor) 50 mg NG BID [facility] Last Admin: 08/31/17 17:35 Dose: 50 mg Multivitamins (Thera Tab) 1 tab PO 0800 [facility] Thiamine HCl (Vitamin B1 Tab) 100 mg PO DAILY [facility] - Labs Labs: 08/31/17 06:00 08/31/17 06:00 PT 15.4 SECONDS (9.4-12.5) H 08/29/17 12:30 INR 1.39 (0.93-1.08) H 08/29/17 12:30 APTT 55.9 Seconds (25.1-36.5) H 08/31/17 13:50 - Constitutional Appears: Chronically Ill - Head Exam Head Exam: NORMAL INSPECTION - ENT Exam Additional comments: NGT in place - Neck Exam Neck Exam: absent: Meningismus - Respiratory Exam Respiratory Exam: Decreased Breath Sounds. absent: Rales - Cardiovascular Exam Cardiovascular Exam: +S1, +S2 - GI/Abdominal Exam GI & Abdominal Exam: Soft. absent: Tenderness Assessment and Plan - Assessment and Plan (Free Text) Plan: Assessment Systemic Inflammatory Response Syndrome probably due to acute CVA and NSTEMI with acute atrial flutter and AV block, as well as acute renal failure from rhabdomyolysis, sepsis less likely COPD chronic anemia CAD Plan on Cefepime day 3 - will d/c since blood and urine cx are negative and 2 consecutive CXR's do not show infiltrates; PCT is elevated but patient has acute renal failure will continue to monitor clinically
--- NOTE | 2017-09-01 09:44 | PQF SEPSIS ---
This form is a permanent part of the medical record Clarification of your documentation is requested to better reflect the severity of illness and intensity of treatment of your patient. Indicators present ID PN- Systemic Inflammatory Response Syndrome probably due to acute CVA and NSTEMI with acute atrial flutter and AV block, as well as acute renal failure from rhabdomyolysis R/O sepsis, source to be determined. No source found , cultures & CXR- neg antibiotics being discontinued. Has Sepsis been ruled out? [] Temp < 96.8 or > 100.4 [] WBC count > 12,000/mm3 or <000/mm3 or 10% immature neutrophils [] Heart Rate > 90 [] Respiratory Rate > 20 [] Fever or hypothermia [] Chills [] Positive blood cultures [] Hypotension [] Metabolic acidosis (Elevated lactate level, anion gap or reduced blood pH) [] Acute confusion /Altered Mental Status [] Shock [] Other: [] Location in the medical record that reflects the above clinical findings: [] ID consult & PN 08/31 Treatment Provided: [] IB ABX d/c'ed, no source of infection found PHYSICIAN'S RESPONSE: No Sepsis Based on your medical judgment of the clinical indicators outlined above, are you treating this patient for a known or suspected: [] Sepsis / Septicemia Please specify organism if known [] [] SIRS (Systemic Inflammatory Response Syndrome) [] Severe Sepsis (Sepsis with Associated Organ Dysfunction) [] Fever of Unknown Origin [] Other, please indicate: [] [] If Unable to Determine, please check the box, sign and date. Present On Admission (POA) Indicator: [] Present at the time of admission [xxx] Not present at the time of admission [] Clinically Undetermined In responding to this query, please exercise your independent professional judgment. The fact that a question is asked does not imply that any particular answer is desired or expected. Thank you for your clarification on this documentation. If you have any questions please call:[ ][phone] * Thank you, [ ]Jemima Love RN [id number]
[2017-09-01] MEDS: Heparin25000 units/250ml 1/2NS 25,000 UNITS/250 ML BAG IV PRN (11:25)
--- NOTE | 2017-09-01 11:26 | PN ---
DATE: 08/31/2017 DAILY PROGRESS NOTE SUBJECTIVE: The patient is a 77-year-old male who is brought to the emergency room by his squad after being found on the floor of his bathroom. He was not seen for several days prior to that. In the emergency room, he was diagnosed with possible CVA because of a left upward gaze. He was diagnosed with sepsis with elevated white blood cell count of 24.6. He was in a rapid atrial fib/flutter with elevated troponins, so diagnosis of possible myocardial infarction was also made. Chest x-ray was suggestive of possible early pneumonia and his procalcitonin level was elevated at 37.83. He was found to be AB positive type blood. Blood and urine cultures were negative. Laboratory studies showed the blood urea nitrogen to be 41, creatinine of 1.8. Since the downtime was unknown, rhabdomyolysis was also considered in his diagnosis. The patient was admitted to the Intensive Care Unit. He was seen by Infectious Disease, Cardiology as well as Neurology. When seen today, the patient is markedly improved. He is awake and oriented. He responded appropriately to questions. He seems to understand me and recognizes me as the brother of my associate Dr. Douglas Tyalor, which he usually sees in office. Morning laboratory shows the white blood cell count still to be elevated at 23.6 with hemoglobin and hematocrit of 13.0 and 39.8. Blood urea nitrogen is 39 and creatinine is 1.5. His blood pressure this morning was 170/92 with the heart rate of 92. So, the patient is still being followed closely in the critical care unit. He is being treated with Apresoline intravenously, aspirin, Ativan, intravenous Cardizem, folic acid, heparin, Lipitor, Lopressor, intravenous Protonix, IV fluids, multivitamin, and thiamine. Catarino Taylor MD MTDD
--- NOTE | 2017-09-01 12:12 | PN ---
DATE: 09/01/2017 REASON FOR CONSULTATION AND FOLLOWUP: AFib, CVA, and altered mental status. SUBJECTIVE: The patient denies any chest pain, much awake and alert, but is still confused on 2-point soft wrist restraint. PHYSICAL EXAMINATION GENERAL: A 2-point soft restraint, not in apparent distress. VITAL SIGNS: Temperature afebrile, heart rate , and blood pressure 167/107. HEENT: PERRLA. Extraocular muscles intact. NECK: Supple. No carotid bruits or thyromegaly. CHEST: Clear to auscultation. HEART: S1 and S2 regular. ABDOMEN: Soft. EXTREMITIES: Clubbing or cyanosis negative. LABORATORY DATA: Blood workup as follows; WBC 15.4, hemoglobin 12.2, hematocrit 37.9, and platelet count 186. Chemistry shows sodium 135, potassium 3.9, chloride 103, carbon dioxide 21, anion gap of 15, BUN 35, and creatinine 1.4. Troponin is 0.58. The patient had echocardiography done that showed LV function severely impaired, global hypokinesis of the ventricle, mild aortic regurgitation, moderate mitral regurgitation, [id number] pulmonary hypertension, RV systolic pressure of 48, mild aortic regurgitation, and moderate mitral regurgitation. Calculated ejection fraction of 33%. EKG on 08/30/2017 shows AFib. digital commentator shows AFib with rapid heart rate of 112. IMPRESSION: Atrial fibrillation, duration of chronicity unknown. Since admission, the patient is in atrial fibrillation. Acute cerebrovascular accident positive, myocardial infarction, expressive aphasia right side (confused), altered mental status possibly secondary to cerebrovascular accident, possible right-sided weakness. RECOMMENDATIONS: Continue heparin. Continue aspirin added. Continue beta-tigre. We will add Cardizem to control the better heart rate. Continue broad spectrum antibiotic. Awaiting for CAT scan and MRI of the head to be done. We will add low dose of NESSA inhibitors. Overall, the patient's condition is not stable and history of recent stroke is another contraindication to go for cardiac cath. We will treat medically. The patient is unable to get p.o., we will change to Cardizem IV drip. We will follow with you. Thank you Dr. Taylor, for providing us the opportunity in taking care of the patient, Abhinav Farfan. Paresh Reaves MD
--- NOTE | 2017-09-01 12:41 | MRI ---
PROCEDURE: MRI BRAIN WITHOUT CONTRAST HISTORY: cva COMPARISON: None. TECHNIQUE: Multiplanar, multisequence MR images of the brain were obtained without intravenous contrast enhancement. FINDINGS: HEMORRHAGE: None DWI: There is minimal restricted diffusion within the larger area of encephalomalacia in the right parietal lobe. This is consistent with a chronic or subacute infarct. BRAIN PARENCHYMA: No mass effect or edema. No atrophy or chronic mChronic microvascular changes are seen in the periventricular white matter. There is more focal encephalomalacia in the right parietal lobe involving the white matter and cortex. Icrovascular ischemic changes. VENTRICLES: Unremarkable. No hydrocephalus. CRANIUM: Unremarkable. ORBITS: Grossly unremarkable. PARANASAL SINUSES/MASTOIDS: Clear VASCULAR SYSTEM: Skull base flow voids intact. OTHER FINDINGS: None. 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 Chronic microvascular changes in the periventricular white matter.
--- NOTE | 2017-09-01 12:43 | MRI ---
PROCEDURE: Magnetic Resonance Angiography Brain HISTORY: cva COMPARISON: None available. TECHNIQUE: 3D time of flight MR angiography of the intracranial arteries was performed. Rotating maximum intensity projection images were generated. FINDINGS: INTERNAL CAROTID ARTERIES: Unremarkable. The skull base, petrous, cavernous and supraclinoid segments are bilaterally widely patient. ANTERIOR CEREBRAL ARTERIES: Unremarkable. A1 and A2 segments are widely patent. Smaller distal branches unremarkable, as visualized. MIDDLE CEREBRAL ARTERIES: Unremarkable. M1 and M2 segments are widely patent. Perisylvian branches grossly symmetric. POSTERIOR CIRCULATION: Basilar Artery: Unremarkable. Distal Vertebral Arteries: Unremarkable. Posterior Cerebral Arteries: Unremarkable. Posterior Inferior Cerebellar Arteries: Unremarkable. ANEURYSM/ VASCULAR MALFORMATIONS: None. OTHER FINDINGS: None. IMPRESSION: Unremarkable MR angiography of the brain.
--- NOTE | 2017-09-01 13:49 | CP.PCM.PN ---
<Tran Herndon - Last Filed: 09/01/17 19:44> Subjective - Date & Time of Evaluation Date of Evaluation: 09/01/17 Time of Evaluation: 09:00 - Subjective Subjective: PGY-[address] Currie's service Patient seen and examined at bedside in ICU. No acute distress. Patient alert and response to verbral stimuli however he is not oriented. He does not follow commend. Objective - Vital Signs/Intake and Output Vital Signs (last 24 hours): Temp Pulse Resp BP Pulse Ox 98.5 F 69 18 142/82 100 09/01/17 12:00 09/01/17 13:00 09/01/17 13:00 09/01/17 12:40 09/01/17 13:00 Intake and Output: 09/01/17 09/01/17 06:59 18:59 Intake Total 1680 100 Output Total 750 Balance 930 100 - Medications Medications: Current Medications Aspirin (Aspirin Chewable) 81 mg PO DAILY [facility] Last Admin: 09/01/17 09:52 Dose: 81 mg Atorvastatin Calcium (Lipitor) 20 mg NG DAILY [facility] Last Admin: 08/30/17 09:00 Dose: 20 mg Clopidogrel Bisulfate (Plavix) 75 mg PO DAILY [facility] Diltiazem HCl (Cardizem) 30 mg PO QID [facility] Last Admin: 09/01/17 11:51 Dose: 30 mg Folic Acid (Folic Acid) 1 mg PO DAILY [facility] Last Admin: 09/01/17 09:53 Dose: 1 mg Hydralazine HCl (Apresoline) 10 mg IVP Q6 PRN PRN Reason: Systolic Blood Pressure Heparin Sodium/Sodium Chloride (Heparin 52917 Units/250ml 1/2 Normal Saline) 25 ,000 units in 250 mls @ 10.173 mls/hr IV .Q24H PRN; Protocol; 18 UNITS/KG/HR PRN Reason: ADJUST RATE PER PROTOCOL Last Admin: 09/01/17 11:25 Dose: 14 units/kg/hr, 7.913 mls/hr diltiaZEM IVPB 100mg in NS (Cardizem 100mg In Ns) 100 mls @ 5 mls/hr IV .Q20H PRN; Protocol; 5 MG/HR PRN Reason: TITRATE PER MD ORDER Last Admin: 08/30/17 00:05 Dose: 5 mg/hr, 5 mls/hr Sodium Chloride (Sodium Chloride 0.9%) 1,000 mls @ 125 mls/hr IV .Q8H [facility] Last Admin: 09/01/17 05:50 Dose: 125 mls/hr Lorazepam (Ativan) 1 mg IVP Q6H PRN; Protocol PRN Reason: Anxiety Last Admin: 08/30/17 22:56 Dose: 1 mg Metoprolol Tartrate (Lopressor) 50 mg NG BID [facility] Last Admin: 09/01/17 09:52 Dose: 50 mg Multivitamins (Thera Tab) 1 tab PO 0800 [facility] Last Admin: 09/01/17 08:40 Dose: 1 tab Pantoprazole Sodium (Protonix Ec Tab) 40 mg PO DAILY [facility] Thiamine HCl (Vitamin B1 Tab) 100 mg PO DAILY [facility] Last Admin: 09/01/17 09:52 Dose: 100 mg - Labs Labs: 09/01/17 06:00 09/01/17 06:00 PT 15.4 SECONDS (9.4-12.5) H 08/29/17 12:30 INR 1.39 (0.93-1.08) H 08/29/17 12:30 APTT 35.9 Seconds (25.1-36.5) 09/01/17 06:00 - Constitutional Appears: No Acute Distress - Head Exam Head Exam: ATRAUMATIC, NORMAL INSPECTION, NORMOCEPHALIC - Eye Exam Eye Exam: Normal appearance - ENT Exam ENT Exam: Mucous Membranes Moist - Respiratory Exam Respiratory Exam: Clear to Ausculation Bilateral, NORMAL BREATHING PATTERN. absent: Rhonchi, Wheezes, Respiratory Distress, Stridor - Cardiovascular Exam Cardiovascular Exam: REGULAR RHYTHM. absent: Tachycardia, Murmur - Neurological Exam Neurological Exam: Alert, Awake. absent: Oriented x3 - Skin Skin Exam: Dry, Intact, Normal Color, Warm Assessment and Plan - Assessment and Plan (Free Text) Assessment: 77 yo male with unknown PMH presents with unresponsiveness due to CVA vs sepsis 1. possible CVA 2. SIRS 3. a. fib 4. NSTEMI 5. rhabdomyolysis 6. uncontrolled HTN - CT head is negative - MRI showed subacute to chronic right parietal infarct, correlates with left sided weakness - MRA unremarkable - control BP, SBP between 130-140 - treat NSTEMI - monitor electrolytes, replace as needed - asa, plavix - PT/OT when more alert - avoid sedative medication Thank you for the consult, please reconsult if needed Case reviewed and discussed with Dr. Currie <Raudel Currie - Last Filed: 09/02/17 10:34> Objective - Vital Signs/Intake and Output Vital Signs (last 24 hours): Temp Pulse Resp BP Pulse Ox 97.7 F 111 H 31 H 188/100 H 99 09/02/17 04:00 09/02/17 07:10 09/02/17 07:10 09/02/17 06:40 09/02/17 07:10 Intake and Output: 09/02/17 09/02/17 06:59 18:59 Intake Total 1500 Output Total 350 Balance 1150 - Medications Medications: Current Medications Aspirin (Aspirin Chewable) 81 mg PO DAILY [facility] Last Admin: 09/02/17 10:13 Dose: 81 mg Atorvastatin Calcium (Lipitor) 20 mg NG DAILY [facility] Last Admin: 08/30/17 09:00 Dose: 20 mg Clopidogrel Bisulfate (Plavix) 75 mg PO DAILY [facility] Last Admin: 09/02/17 10:13 Dose: 75 mg Diltiazem HCl (Cardizem) 30 mg PO Q6 [facility] Last Admin: 09/02/17 05:57 Dose: 30 mg Folic Acid (Folic Acid) 1 mg PO DAILY [facility] Last Admin: 09/02/17 10:14 Dose: 1 mg Hydralazine HCl (Apresoline) 10 mg IVP Q6 PRN PRN Reason: Systolic Blood Pressure Hydralazine HCl (Apresoline) 10 mg PO QID PRN PRN Reason: for SBP >170 Heparin Sodium/Sodium Chloride (Heparin 13152 Units/250ml 1/2 Normal Saline) 25 ,000 units in 250 mls @ 10.173 mls/hr IV .Q24H PRN; Protocol; 18 UNITS/KG/HR PRN Reason: ADJUST RATE PER PROTOCOL Last Admin: 09/01/17 11:25 Dose: 14 units/kg/hr, 7.913 mls/hr Sodium Chloride (Sodium Chloride 0.9%) 1,000 mls @ 125 mls/hr IV .Q8H [facility] Last Admin: 09/02/17 09:00 Dose: 125 mls/hr Lisinopril (Zestril) 10 mg PO DAILY [facility] Lorazepam (Ativan) 1 mg IVP Q6H PRN; Protocol PRN Reason: Anxiety Last Admin: 09/02/17 00:30 Dose: 1 mg Metoprolol Tartrate (Lopressor) 25 mg NG BID [facility] Multivitamins (Thera Tab) 1 tab PO 0800 [facility] Last Admin: 09/02/17 07:54 Dose: 1 tab Pantoprazole Sodium (Protonix Ec Tab) 40 mg PO DAILY [facility] Last Admin: 09/02/17 10:13 Dose: 40 mg Thiamine HCl (Vitamin B1 Tab) 100 mg PO DAILY [facility] Last Admin: 09/02/17 10:13 Dose: 100 mg - Labs Labs: 09/01/17 06:00 09/01/17 06:00 PT 15.4 SECONDS (9.4-12.5) H 08/29/17 12:30 INR 1.39 (0.93-1.08) H 08/29/17 12:30 APTT 59.5 Seconds (25.1-36.5) H 09/02/17 06:00 Attending/Attestation - Attestation I have personally seen and examined this patient.: Yes I have fully participated in the care of the patient.: Yes I have reviewed all pertinent clinical information, including history, physical exam and plan: Yes
[2017-09-02] MEDS: Sodium Chloride 0.9% 1,000 ML IV SCH ×3 (01:00→17:25)
[2017-09-02] MEDS: Multivitamin Therapeutic Tab PO SCH (07:54)
--- NOTE | 2017-09-02 08:26 | PN ---
DATE: 09/01/2017 SUBJECTIVE: The patient was seen late this Thursday evening in Intensive Care ICU bed 5. When I came into the room, the patient was sleeping, having received some Ativan earlier, but was easily arousable, and is now much clinically improved from this presentation. He was able to open his eyes, talk a few words, recognized me and know my name. He was unable to recall the date or recent events in the hospital or leading up to his hospitalization. He was surprised to hear he was hospitalized and that he had a stroke. PHYSICAL EXAMINATION: GENERAL: The patient is awake, a bit confused. HEENT: Head and neck was otherwise unremarkable with some temporalis muscle wasting. CHEST: Chest wall was thin. LUNGS: Clear with decreased breath sounds and prolonged expiratory phase and chronic COPD. HEART: Regular, not tachycardic. EXTREMITIES: Thin. No edema. He was moving all extremities. IMPRESSION: 1. Cerebrovascular accident. 2. Chronic obstructive pulmonary disease. 3. History of coronary artery disease status post stent placement in 2009 and 2011. 4. History of tobacco use. 5. Hearing loss. PLAN: We will follow up clinically. The patient will be ready to leave Intensive Care as early as tomorrow with progressive physical therapy to continue. Douglas Taylor MD
--- NOTE | 2017-09-02 09:51 | CP.PCM.PN ---
Subjective - Date & Time of Evaluation Date of Evaluation: 09/02/17 Time of Evaluation: 09:20 - Subjective Subjective: Still restless at times, confused, no fevers overnight, no diarrhea, no vomiting. Objective - Vital Signs/Intake and Output Vital Signs (last 24 hours): Temp Pulse Resp BP Pulse Ox 98.4 F 100 H 21 187/113 H 75 L 09/01/17 16:00 09/02/17 05:57 09/02/17 03:30 09/02/17 05:57 09/02/17 03:30 Intake and Output: 09/01/17 09/02/17 18:59 06:59 Intake Total 1761 Output Total 700 Balance 1061 - Medications Medications: Current Medications Aspirin (Aspirin Chewable) 81 mg PO DAILY [facility] Last Admin: 09/01/17 09:52 Dose: 81 mg Atorvastatin Calcium (Lipitor) 20 mg NG DAILY [facility] Last Admin: 08/30/17 09:00 Dose: 20 mg Clopidogrel Bisulfate (Plavix) 75 mg PO DAILY [facility] Last Admin: 09/01/17 14:33 Dose: 75 mg Diltiazem HCl (Cardizem) 30 mg PO Q6 [facility] Last Admin: 09/02/17 05:57 Dose: 30 mg Folic Acid (Folic Acid) 1 mg PO DAILY [facility] Last Admin: 09/01/17 09:53 Dose: 1 mg Hydralazine HCl (Apresoline) 10 mg IVP Q6 PRN PRN Reason: Systolic Blood Pressure Heparin Sodium/Sodium Chloride (Heparin 87425 Units/250ml 1/2 Normal Saline) 25 ,000 units in 250 mls @ 10.173 mls/hr IV .Q24H PRN; Protocol; 18 UNITS/KG/HR PRN Reason: ADJUST RATE PER PROTOCOL Last Admin: 09/01/17 11:25 Dose: 14 units/kg/hr, 7.913 mls/hr diltiaZEM IVPB 100mg in NS (Cardizem 100mg In Ns) 100 mls @ 5 mls/hr IV .Q20H PRN; Protocol; 5 MG/HR PRN Reason: TITRATE PER MD ORDER Last Admin: 08/30/17 00:05 Dose: 5 mg/hr, 5 mls/hr Sodium Chloride (Sodium Chloride 0.9%) 1,000 mls @ 125 mls/hr IV .Q8H [facility] Last Admin: 09/02/17 01:00 Dose: 125 mls/hr Lorazepam (Ativan) 1 mg IVP Q6H PRN; Protocol PRN Reason: Anxiety Last Admin: 09/02/17 00:30 Dose: 1 mg Metoprolol Tartrate (Lopressor) 50 mg NG BID [facility] Last Admin: 09/01/17 17:50 Dose: 50 mg Multivitamins (Thera Tab) 1 tab PO 0800 [facility] Last Admin: 09/01/17 08:40 Dose: 1 tab Pantoprazole Sodium (Protonix Ec Tab) 40 mg PO DAILY [facility] Thiamine HCl (Vitamin B1 Tab) 100 mg PO DAILY [facility] Last Admin: 09/01/17 09:52 Dose: 100 mg - Labs Labs: 09/01/17 06:00 09/01/17 06:00 PT 15.4 SECONDS (9.4-12.5) H 08/29/17 12:30 INR 1.39 (0.93-1.08) H 08/29/17 12:30 APTT 62.1 Seconds (25.1-36.5) H 09/01/17 19:59 - Constitutional Appears: Chronically Ill - Head Exam Head Exam: NORMAL INSPECTION - ENT Exam ENT Exam: Mucous Membranes Moist Additional comments: NG feeding tube in place - Neck Exam Neck Exam: absent: Lymphadenopathy, Meningismus - Respiratory Exam Respiratory Exam: Decreased Breath Sounds - Cardiovascular Exam Cardiovascular Exam: +S1, +S2 - GI/Abdominal Exam GI & Abdominal Exam: Soft. absent: Tenderness Assessment and Plan - Assessment and Plan (Free Text) Plan: Assessment Systemic Inflammatory Response Syndrome probably due to acute CVA and NSTEMI with acute atrial flutter and AV block, as well as acute renal failure from rhabdomyolysis, sepsis less likely COPD chronic anemia CAD Plan blood and urine cx are negative and 2 consecutive CXR's do not show infiltrates ; PCT is elevated but patient has acute renal failure will continue to monitor clinically off antibiotics since he is at risk for nosocomial infections
[2017-09-02] MEDS: Pantoprazole 40 mg EC Tab PO SCH (10:13)
--- NOTE | 2017-09-02 10:55 | PN ---
DATE: 09/02/2017 REASON FOR CONSULTATION AND FOLLOWUP: Atrial fibrillation, cerebrovascular accident, and altered mental status. SUBJECTIVE: The patient is sleeping and waking up. Denies any chest pain, but is still confused on 2-point soft Abby restraint, but moving all limbs. Possible mild decrease in strength on the right side. He does not follow the simple command, hard to assess. OBJECTIVE/PHYSICAL EXAMINATION: As follows: GENERAL: Not in apparent distress, lying flat in the bed. He is still in atrial fibrillation. VITAL SIGNS: Temperature is afebrile, heart rate is 111, and blood pressure is 188/100. HEENT: PERRLA. Extraocular muscles are intact. NECK: Supple. No carotid bruits or thyromegaly. CHEST: Clear to auscultation. HEART: S1 and S1 regular. ABDOMEN: Soft. EXTREMITIES: Clubbing and cyanosis negative. LABORATORY DATA: Blood workup as follows: WBC of 15.4, hemoglobin of 12.2, hematocrit is 37.9 and platelet count is 189. Chemistry shows sodium of 135, potassium of 3.9, chloride of 103, carbon dioxide of 21, anion gap of 15, BUN of 35, and creatinine of 1.4. Troponin trend down to 0.58. IMPRESSION: Non-ST segment myocardial infarction, coronary artery disease, acute, possible cerebrovascular accident with possible right-sided weakness, altered mental status, atrial fibrillation with rapid rate, now rate is well controlled, elevated BUN and creatinine, creatinine clearance on admission was 30 mL, and has stage III-IV chronic kidney disease. RECOMMENDATIONS: Because of overall the patient's condition, not a candidate to go for invasive cardiac workup. We will suggest aggressively treat medically. 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 The patient had a echocardiography on 08/31/2017 that shows systolic function severely impaired, global hypokinesis of the left ventricle, mild aortic regurgitation, moderate mitral regurgitation, [id number] pulmonary hypertension, RV systolic pressure of 49. We will continue Cardizem to 30 mg q.6 hours and discontinue IV Cardizem. We will start low-dose NESSA inhibitor and if renal function remain stable, we will increase later on NESSA inhibitor to start from 10 mg daily and follow up with you. We will also cutdown the metoprolol to 25 mg b.i.d. Paresh Reaves MD
[2017-09-02] MEDS: Heparin25000 units/250ml 1/2NS 25,000 UNITS/250 ML BAG IV PRN (19:53)
--- NOTE | 2017-09-03 00:48 | CP.PCM.PN ---
Subjective - Date & Time of Evaluation Date of Evaluation: 09/03/17 Time of Evaluation: 00:48 - Subjective Subjective: It was requested to renew an order for bilateral wrist restraint. Patient is awake, has no complaints. Medical record was reviewed. This 77 year old white male was admitted after he was found unresponsive in his bathroom,sepsis,CVA. Has PMH of CAD, [place], PTCA, COPD, right inguinal herniorrhaphy, laparoscopic cholecystectomy. Objective - Vital Signs/Intake and Output Vital Signs (last 24 hours): Temp Pulse Resp BP Pulse Ox 98.4 F 95 H 24 190/83 H 90 L 09/02/17 20:00 09/02/17 23:55 09/02/17 21:49 09/02/17 23:55 09/02/17 21:40 Intake and Output: 09/02/17 09/03/17 18:59 06:59 Intake Total 3021 250 Balance 3021 250 - Medications Medications: Current Medications Aspirin (Aspirin Chewable) 81 mg PO DAILY [facility] Last Admin: 09/02/17 10:13 Dose: 81 mg Atorvastatin Calcium (Lipitor) 20 mg NG DAILY [facility] Last Admin: 08/30/17 09:00 Dose: 20 mg Clopidogrel Bisulfate (Plavix) 75 mg PO DAILY [facility] Last Admin: 09/02/17 10:13 Dose: 75 mg Diltiazem HCl (Cardizem) 30 mg PO Q6 [facility] Last Admin: 09/02/17 23:55 Dose: 30 mg Folic Acid (Folic Acid) 1 mg PO DAILY [facility] Last Admin: 09/02/17 10:14 Dose: 1 mg Hydralazine HCl (Apresoline) 10 mg IVP Q6 PRN PRN Reason: Systolic Blood Pressure Hydralazine HCl (Apresoline) 10 mg PO QID PRN PRN Reason: for SBP >170 Heparin Sodium/Sodium Chloride (Heparin 73823 Units/250ml 1/2 Normal Saline) 25 ,000 units in 250 mls @ 10.173 mls/hr IV .Q24H PRN; Protocol; 18 UNITS/KG/HR PRN Reason: ADJUST RATE PER PROTOCOL Last Admin: 09/02/17 19:53 Dose: 14 units/kg/hr, 7.913 mls/hr Sodium Chloride (Sodium Chloride 0.9%) 1,000 mls @ 125 mls/hr IV .Q8H [facility] Last Admin: 09/02/17 17:25 Dose: 125 mls/hr Lisinopril (Zestril) 10 mg PO DAILY [facility] Lorazepam (Ativan) 1 mg IVP Q6H PRN; Protocol PRN Reason: Anxiety Last Admin: 09/02/17 23:54 Dose: 1 mg Metoprolol Tartrate (Lopressor) 25 mg NG BID [facility] Last Admin: 09/02/17 17:29 Dose: 25 mg Multivitamins (Thera Tab) 1 tab PO 0800 [facility] Last Admin: 09/02/17 07:54 Dose: 1 tab Pantoprazole Sodium (Protonix Ec Tab) 40 mg PO DAILY [facility] Last Admin: 09/02/17 10:13 Dose: 40 mg Thiamine HCl (Vitamin B1 Tab) 100 mg PO DAILY [facility] Last Admin: 09/02/17 10:13 Dose: 100 mg - Labs Labs: 09/01/17 06:00 09/01/17 06:00 PT 15.4 SECONDS (9.4-12.5) H 08/29/17 12:30 INR 1.39 (0.93-1.08) H 08/29/17 12:30 APTT 59.5 Seconds (25.1-36.5) H 09/02/17 06:00 - Constitutional Appears: Well, No Acute Distress - Head Exam Head Exam: ATRAUMATIC, NORMAL INSPECTION, NORMOCEPHALIC - Eye Exam Eye Exam: Normal appearance - ENT Exam ENT Exam: Normal External Ear Exam - Neck Exam Neck Exam: Normal Inspection - Respiratory Exam Respiratory Exam: NORMAL BREATHING PATTERN - Cardiovascular Exam Cardiovascular Exam: absent: JVD - GI/Abdominal Exam GI & Abdominal Exam: absent: Distended - Rectal Exam Rectal Exam: Deferred - Exam Additional comments: Deferred. - Extremities Exam Extremities Exam: Normal Inspection - Back Exam Back Exam: NORMAL INSPECTION - Neurological Exam Neurological Exam: Alert, Awake - Psychiatric Exam Psychiatric exam: Normal Affect, Normal Mood - Skin Skin Exam: Normal Color Assessment and Plan - Assessment and Plan (Free Text) Assessment: Intermittent agitation. CAD. S/P PTCA. CVA. Atrial fibrillation. Sepsis. Plan: Bilateral wrist restraint was renewed. Continue present management.
[2017-09-03] MEDS: Sodium Chloride 0.9% 1,000 ML IV SCH (01:30)
--- NOTE | 2017-09-03 10:15 | CP.PCM.PN ---
Subjective - Date & Time of Evaluation Date of Evaluation: 09/03/17 Time of Evaluation: 09:40 - Subjective Subjective: Patient is now out of bed and onto a chair, no fevers overnight, more awake compared to previous days, no diarrhea, no vomiting. Objective - Vital Signs/Intake and Output Vital Signs (last 24 hours): Temp Pulse Resp BP Pulse Ox 98.5 F 86 17 165/97 H 100 09/03/17 04:00 09/03/17 06:20 09/03/17 06:20 09/03/17 06:20 09/03/17 06:20 Intake and Output: 09/03/17 09/03/17 06:59 18:59 Intake Total 2450 Output Total 700 Balance 1750 - Medications Medications: Current Medications Aspirin (Aspirin Chewable) 81 mg PO DAILY [facility] Last Admin: 09/02/17 10:13 Dose: 81 mg Atorvastatin Calcium (Lipitor) 20 mg NG DAILY [facility] Last Admin: 08/30/17 09:00 Dose: 20 mg Clopidogrel Bisulfate (Plavix) 75 mg PO DAILY [facility] Last Admin: 09/02/17 10:13 Dose: 75 mg Diltiazem HCl (Cardizem) 30 mg PO Q6 [facility] Last Admin: 09/03/17 05:29 Dose: 30 mg Folic Acid (Folic Acid) 1 mg PO DAILY [facility] Last Admin: 09/02/17 10:14 Dose: 1 mg Hydralazine HCl (Apresoline) 10 mg IVP Q6 PRN PRN Reason: Systolic Blood Pressure Last Admin: 09/03/17 01:10 Dose: 10 mg Hydralazine HCl (Apresoline) 10 mg PO QID PRN PRN Reason: for SBP >170 Heparin Sodium/Sodium Chloride (Heparin 08439 Units/250ml 1/2 Normal Saline) 25 ,000 units in 250 mls @ 10.173 mls/hr IV .Q24H PRN; Protocol; 18 UNITS/KG/HR PRN Reason: ADJUST RATE PER PROTOCOL Last Admin: 09/02/17 19:53 Dose: 14 units/kg/hr, 7.913 mls/hr Sodium Chloride (Sodium Chloride 0.9%) 1,000 mls @ 125 mls/hr IV .Q8H [facility] Last Admin: 09/03/17 01:30 Dose: 125 mls/hr Lisinopril (Zestril) 10 mg PO DAILY [facility] Lorazepam (Ativan) 1 mg IVP Q6H PRN; Protocol PRN Reason: Anxiety Last Admin: 09/02/17 23:54 Dose: 1 mg Metoprolol Tartrate (Lopressor) 25 mg NG BID [facility] Last Admin: 09/02/17 17:29 Dose: 25 mg Multivitamins (Thera Tab) 1 tab PO 0800 [facility] Last Admin: 09/02/17 07:54 Dose: 1 tab Pantoprazole Sodium (Protonix Ec Tab) 40 mg PO DAILY [facility] Last Admin: 09/02/17 10:13 Dose: 40 mg Thiamine HCl (Vitamin B1 Tab) 100 mg PO DAILY [facility] Last Admin: 09/02/17 10:13 Dose: 100 mg - Labs Labs: 09/01/17 06:00 09/01/17 06:00 PT 15.4 SECONDS (9.4-12.5) H 08/29/17 12:30 INR 1.39 (0.93-1.08) H 08/29/17 12:30 APTT 59.5 Seconds (25.1-36.5) H 09/02/17 06:00 - Constitutional Appears: Chronically Ill - Head Exam Head Exam: NORMAL INSPECTION - ENT Exam ENT Exam: Mucous Membranes Moist - Neck Exam Neck Exam: absent: Meningismus - Respiratory Exam Respiratory Exam: Decreased Breath Sounds. absent: Rales - Cardiovascular Exam Cardiovascular Exam: +S1, +S2 - GI/Abdominal Exam GI & Abdominal Exam: Soft. absent: Tenderness Assessment and Plan - Assessment and Plan (Free Text) Plan: Assessment Systemic Inflammatory Response Syndrome probably due to acute CVA and NSTEMI with acute atrial flutter and AV block, as well as acute renal failure from rhabdomyolysis, sepsis less likely COPD chronic anemia CAD Plan blood and urine cx are negative and 2 consecutive CXR's do not show infiltrates ; PCT is elevated but patient has acute renal failure will continue to monitor clinically off antibiotics since he is at risk for hospital-acquired infections
[2017-09-03] MEDS: Pantoprazole 40 mg EC Tab PO SCH (11:12)
[2017-09-03] MEDS: Multivitamin Therapeutic Tab PO SCH (11:13)
--- NOTE | 2017-09-03 12:40 | PN ---
DATE: 09/03/2017 REASON FOR CONSULTATION: Followup atrial fibrillation, cerebrovascular accident, and altered mental status. SUBJECTIVE: The patient is lying in the bed, still confused. OBJECTIVE: GENERAL: Not in apparent distress. VITAL SIGNS: As follows, temperature afebrile, heart rate 90, blood pressure 154/91. HEENT: PERRLA. Extraocular muscles intact. NECK: Supple. No carotid bruits. No thyromegaly. CHEST: Clear to auscultation. HEART: S1 and S2 regular. ABDOMEN: Soft. EXTREMITIES: Clubbing and cyanosis negative. LABORATORY DATA: Blood workup as follows: WBC of 15.5, hemoglobin of 12.2, hematocrit is 37.9 and platelet count is 186. Chemistry shows sodium 135, potassium 3.9, chloride 103, carbon dioxide 21, anion gap 15, BUN 35, and creatinine 1.4. Troponin 0.58. IMPRESSION: Acute altered mental status, acute cerebrovascular accident, non-ST segment myocardial infarction, coronary artery disease, elevated BUN and creatine. MRI of the brain yesterday done that shows subacute chronic right parietal infarct, chronic microvascular changes. MRI of the brain is unremarkable. Atrial fibrillation with rapid ventricular rate, now rate is well controlled. The patient had elevated BUN and creatinine, now is coming down. Creatinine 1.4, phosphorus 2.1. The patient has renal insufficiency, which is improving with free water. RECOMMENDATIONS: Continue free water, though discontinue heparin. Continue Plavix, aspirin. Continue Cardizem 30 mg, we will increase to 60 three times a day. We will follow with you. Thank you Dr. Taylor, for providing us the opportunity in taking care of the patient, Cosme Farfan. Echo shows decreased LV function, cardiomyopathy. We will add lisinopril and continue Cardizem. We will increase to Cardizem 60 t.i.d. to control the heart rate. Continue heparin for now. Continue aspirin. Continue beta-tigre low-dose as blood pressure and heart rate is tolerated. We will put NESSA inhibitors. Further recommendation depending upon hospital course. We will follow with you. In a day or two, we will change the heparin to Lovenox depending upon neurological status. Paresh Reaves MD
[2017-09-04] MEDS: Heparin25000 units/250ml 1/2NS 25,000 UNITS/250 ML BAG IV PRN (04:48)
[2017-09-04] MEDS: Sodium Chloride 0.9% 1,000 ML IV SCH ×2 (05:00→05:01)
[2017-09-04 06:45] LABS: BASO # 0.03 K/mm3 (0.0-2.0); BASO % 0.2 % (0.0-3.0); EOS # 0.5 (0.0-0.7); EOS % 3.5 % (1.5-5.0); GRAN # 9.42 (1.4-6.5); HEMATOCRIT 33.7 % (42.0-52.0); LYMPH # 1.5 (1.2-3.4); LYMPH % 11.7 % (22.0-35.0); MEAN CELL VOLUME 87.8 fl (80.0-105.0); MEAN CORPUSCULAR HEMOGLOBIN 28.4 pg (25.0-35.0); MEAN CORPUSCULAR HGB CONC 32.3 g/dl (31.0-37.0); MEAN PLATELET VOLUME 10.9 fl (7.0-11.0); MONO # 1.5 (0.1-0.6); MONO % 11.6 % (1.0-6.0); RED CELL DISTRIBUTION WIDTH 14.6 % (11.5-14.5); WHITE BLOOD COUNT 12.9 10^3/ul (4.5-11.0)
[2017-09-04] MEDS: Pantoprazole 40 mg EC Tab PO SCH ×2 (08:16→11:09)
[2017-09-04] MEDS: Multivitamin Therapeutic Tab PO SCH (08:17)
[2017-09-04 08:42] LABS: BILIRUBIN,TOTAL 0.5 mg/dL (0.2-1.3); CALCIUM 9.2 mg/dL (8.4-10.5); TOTAL PROTEIN 5.9 g/dL (5.8-8.3)
[2017-09-04 09:21] LABS: POTASSIUM 2.9 mmol/L (3.6-5.0)
[2017-09-04] MEDS: Enoxaparin 60 mg Syringe SC SCH (11:08)
[2017-09-04] MEDS: Potassium Chloride 20 mEq ER Tab PO SCH ×3 (11:32→19:09)
--- NOTE | 2017-09-04 13:17 | PN ---
DATE: 09/04/2017 REASON FOR THE CONSULTATION: Followup atrial fibrillation, cerebrovascular accident, and altered mental status. SUBJECTIVE: Patient denies any chest pain, shortness of breath, or any palpitation. Sitting in chair. OBJECTIVE: GENERAL: Not in apparent distress. VITAL SIGNS: Temperature afebrile, heart rate 94, blood pressure 186/99. HEENT: PERRLA, intact. NECK: Supple. No carotid bruits or thyromegaly. CHEST: Clear to auscultation. HEART: S1 and S2. Regular. ABDOMEN: Soft. EXTREMITIES: Clubbing or cyanosis negative. LABORATORY DATA: Blood workup as follows: WBC 12.9, hemoglobin 10.8, hematocrit 33.7, platelet count 227. Chemistry showed sodium 141, potassium 2.9, chloride 108, carbon dioxide of 23, anion gap of 13, BUN 26, creatinine 1.5. Troponin yesterday was 0.58. IMPRESSION: 1. Subacute to chronic right parietal infarct. 2. Altered mental status. 3. Atrial fibrillation. 4. Cardiomyopathy. Ejection fraction of 33% calculated, mild aortic regurgitation, moderate mitral regurgitation, and mild to moderate tricuspid regurgitation, ejection fraction 49. 5. Hypertension. 6. MRA is unremarkable but MRI of the brain showed subacute chronic right parietal infarct. RECOMMENDATIONS: Patient not well controlled. We will continue aspirin, continue Cardizem 60 three times a day, continue metoprolol. We will increase lisinopril to 20 mg daily, and we will change it to Lovenox and start low-dose of Coumadin. We will discontinue Lovenox and INR. If therapeutic, we will follow with you. Thank you Dr. Taylor for providing us the opportunity in taking care of the patient. We will discontinue Plavix and start Coumadin. At this time, no cardiac intervention is planned. We will treat medically because of the recent acute infarct. We will also put Lopressor rather than beta tigre for control of heart rate and for cardiomyopathy, so we will discontinue metoprolol to 12.5 b.i.d. We will start Coumadin 5 mg from today with daily PT/INR. Paresh Reaves MD cc: [facility] # [phone]
--- NOTE | 2017-09-04 17:12 | PCM.RRT ---
PROCESS CONTROL TECHNICIAN Nurse Assessment - Situation Date: 09/04/17 Time PROCESS CONTROL TECHNICIAN was called: 04:15 PROCESS CONTROL TECHNICIAN Responder Arrival Time: 04:15 PROCESS CONTROL TECHNICIAN Location:: [address] [place].Reason for PROCESS CONTROL TECHNICIAN - A) Acute Change in Patient: Subjective: Code Star was called. Per nursing, patient fell when he stood up after laying in bed, but does not appear to have hit his head. Before fall, pt was a/o X 1, after fall patient remained same. Patient was on a heparin drip this am. At time of fall, patient was wearing non-skid socks and floor was not wet. [facility] Assist System was in the room. - Neurological Status (Select all that apply): Alert, Responsive, Oriented, Verbal, Follows Commands. absent: Disoriented, Confused, Lethargic, Aggressive, Weakness Other (Please specify): Oriented X 1, No focal neurological deficits - Respiratory Oxygen Delivery Method: Room Air - Constitutional Appears: Well, Non-toxic, No Acute Distress, Unkempt - Head Head Exam: ATRAUMATIC, NORMAL INSPECTION, NORMOCEPHALIC - Eyes Eye Exam: EOMI, Normal appearance, PERRL. absent: Nystagmus, Periorbital tenderness, Scleral icterus - Respiratory Exam Respiratory Exam: Clear to Ausculation Bilateral, NORMAL BREATHING PATTERN. absent: Accessory Muscle Use, Chest Wall Tenderness, Prolonged Expiratory Phase - Cardiovascular Exam Cardiovascular Exam: REGULAR RHYTHM, RRR, +S1, +S2. absent: Clicks, Diastolic murmur, Gallop, Rubs - GI/Abdominal Exam GI & Abdominal Exam: Soft, Normal Bowel Sounds. absent: Bruit, Distended, Firm , Guarding, Rigid, Tenderness - Neurological Exam Neurological Exam: Alert, Awake, CN II-XII Intact, Normal Gait, Oriented x3 - Extremities Exam Extremities Exam: Full ROM, Normal Capillary Refill, Normal Inspection Plan - Assessment of Findings&Treatment Plan 77 M assessed s/p code star, denies any symptoms. Fall - CT Head ordered - Neuro checks q4 for the next 24 hours - Will f/u results
--- NOTE | 2017-09-04 19:23 | CP.PCM.PN ---
Subjective - Date & Time of Evaluation Date of Evaluation: 09/04/17 Time of Evaluation: 09:30 - Subjective Subjective: Comfortable in bed, not in distress, afebrile, no diarrhea. Objective - Vital Signs/Intake and Output Vital Signs (last 24 hours): Temp Pulse Resp BP Pulse Ox 98.3 F 80 16 157/89 H 96 09/04/17 06:00 09/04/17 06:00 09/04/17 06:00 09/04/17 06:00 09/04/17 06:00 Intake and Output: 09/03/17 09/04/17 18:59 06:59 Intake Total 1490 460 Output Total 200 Balance 1290 460 - Medications Medications: Current Medications Aspirin (Aspirin Chewable) 81 mg PO DAILY [facility] Last Admin: 09/03/17 11:05 Dose: 81 mg Atorvastatin Calcium (Lipitor) 20 mg NG DAILY [facility] Last Admin: 08/30/17 09:00 Dose: 20 mg Clopidogrel Bisulfate (Plavix) 75 mg PO DAILY [facility] Last Admin: 09/03/17 11:12 Dose: 75 mg Diltiazem HCl (Cardizem) 60 mg PO TID [facility] Last Admin: 09/03/17 19:29 Dose: 60 mg Folic Acid (Folic Acid) 1 mg PO DAILY [facility] Last Admin: 09/03/17 11:07 Dose: 1 mg Hydralazine HCl (Apresoline) 10 mg IVP Q6 PRN PRN Reason: Systolic Blood Pressure Last Admin: 09/03/17 01:10 Dose: 10 mg Hydralazine HCl (Apresoline) 10 mg PO QID PRN PRN Reason: for SBP >170 Heparin Sodium/Sodium Chloride (Heparin 89250 Units/250ml 1/2 Normal Saline) 25 ,000 units in 250 mls @ 10.173 mls/hr IV .Q24H PRN; Protocol; 18 UNITS/KG/HR PRN Reason: ADJUST RATE PER PROTOCOL Last Admin: 09/04/17 04:48 Dose: 14 units/kg/hr, 7.913 mls/hr Lisinopril (Zestril) 10 mg PO DAILY [facility] Last Admin: 09/03/17 11:14 Dose: 10 mg Lorazepam (Ativan) 1 mg IVP Q6H PRN; Protocol PRN Reason: Anxiety Last Admin: 09/04/17 04:47 Dose: 1 mg Metoprolol Tartrate (Lopressor) 25 mg NG BID [facility] Last Admin: 09/03/17 19:28 Dose: 25 mg Multivitamins (Thera Tab) 1 tab PO 0800 [facility] Last Admin: 09/03/17 11:13 Dose: 1 tab Pantoprazole Sodium (Protonix Ec Tab) 40 mg PO DAILY [facility] Last Admin: 09/03/17 11:12 Dose: 40 mg Thiamine HCl (Vitamin B1 Tab) 100 mg PO DAILY [facility] Last Admin: 09/03/17 11:13 Dose: 100 mg - Labs Labs: 09/01/17 06:00 09/01/17 06:00 PT 15.4 SECONDS (9.4-12.5) H 08/29/17 12:30 INR 1.39 (0.93-1.08) H 08/29/17 12:30 APTT 60.1 Seconds (25.1-36.5) H 09/03/17 09:25 - Constitutional Appears: Non-toxic, No Acute Distress - Head Exam Head Exam: NORMAL INSPECTION - ENT Exam ENT Exam: Mucous Membranes Moist - Neck Exam Neck Exam: absent: Meningismus - Respiratory Exam Respiratory Exam: Decreased Breath Sounds - Cardiovascular Exam Cardiovascular Exam: +S1, +S2 - GI/Abdominal Exam GI & Abdominal Exam: Soft. absent: Tenderness Assessment and Plan - Assessment and Plan (Free Text) Plan: Assessment Systemic Inflammatory Response Syndrome probably due to acute CVA and NSTEMI with acute atrial flutter and AV block, as well as acute renal failure from rhabdomyolysis, sepsis less likely COPD chronic anemia CAD Plan blood and urine cx are negative and 2 consecutive CXR's do not show infiltrates ; PCT is elevated but patient has acute renal failure will continue to monitor clinically off antibiotics since he is at risk for healthcare-associated infections
--- NOTE | 2017-09-04 19:52 | CT ---
EXAM: CT Head Without Intravenous Contrast CLINICAL HISTORY: 77 years old, male; Signs and symptoms; Altered mental status/memory loss; Age related cognitive decline; Additional info: S/P fall TECHNIQUE: Axial computed tomography images of the head/brain without intravenous contrast. All CT scans at this facility use one or more dose reduction techniques, viz.: automated exposure control; ma/kV adjustment per patient size (including targeted exams where dose is matched to indication; i.e. head); or iterative reconstruction technique. COMPARISON: CT - HEAD W/O CONTRAST 2017-08-29 12:45 FINDINGS: Brain: No acute intracranial hemorrhage. Age-appropriate periventricular white matter disease. No edema. Ventricles: Age-appropriate ventriculomegaly. Bones: No acute displaced fracture. Sinuses: Unremarkable as visualized. No acute sinusitis. Mastoid air cells: Unremarkable as visualized. No mastoid effusion. IMPRESSION: No acute intracranial hemorrhage, or suspicious mass effect.
--- NOTE | 2017-09-04 22:31 | PN ---
DATE: 09/03/2017 SUBJECTIVE: The patient was seen this evening in Intensive Care Unit, ICU bed 5. He was much more awake than when I last saw him some 48 hours ago. He recognizes me, was still surprised to hear that he had such a stroke, was unable to recall the President or the year, but as noted above, showing signs of marked neurological improvement in mentation and cognitive function. He has no focal motor deficits. He has a Dobbhoff feeding tube that has been discontinued and he is able to take p.o. well. 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 We will follow up and look for rehab facilities and talk with the family identified as the patient's daughter and brother. Douglas Taylor MD
--- NOTE | 2017-09-04 23:50 | PN ---
DATE: 09/04/2017 SUBJECTIVE: The patient seen this Thursday morning in the intensive care, ICU bed #5, sitting out of bed in a chair with his cousin, Neri with him. The patient is more awake and alert, certainly he recognizes me when I came in, but was not able to easily tell me the name of his cousin. PHYSICAL EXAMINATION: HEENT: Head and neck has temporalis muscle wasting. NECK: Supple without masses. Thyroid nonpalpable. No JVD. No nodes or masses. LUNGS: Good aeration right and left with decreased breath sounds, COPD. HEART: Irregular, not tachycardic, but his monitor shows atrial fibrillation, continuous. EXTREMITIES: Showed no edema. IMPRESSION: 1. New-onset atrial fibrillation. 2. Acute stroke. 3. Chronic obstructive pulmonary disease. 4. History of hypertension. 5. History of coronary artery disease. PLAN: We will supplement low potassium today. Hold Lovenox in view of hematuria, possible transfer to telemetry floor, and in view of the new-onset atrial fibrillation, we will need to maintain the monitoring specialist and follow closely. Douglas Taylor MD
[2017-09-05] MEDS: Enoxaparin 60 mg Syringe SC SCH ×3 (00:12→23:09)
[2017-09-05 05:44] LABS: BASO # 0.02 K/mm3 (0.0-2.0); BASO % 0.2 % (0.0-3.0); EOS # 0.6 (0.0-0.7); EOS % 4.8 % (1.5-5.0); GRAN # 8.45 (1.4-6.5); GRAN % 68.9 % (50.0-68.0); HEMATOCRIT 34.8 % (42.0-52.0); LYMPH # 1.9 (1.2-3.4); LYMPH % 15.7 % (22.0-35.0); MEAN CELL VOLUME 88.5 fl (80.0-105.0); MEAN CORPUSCULAR HEMOGLOBIN 28.5 pg (25.0-35.0); MEAN CORPUSCULAR HGB CONC 32.2 g/dl (31.0-37.0); MEAN PLATELET VOLUME 11.2 fl (7.0-11.0); MONO # 1.3 (0.1-0.6); MONO % 10.4 % (1.0-6.0); WHITE BLOOD COUNT 12.3 10^3/ul (4.5-11.0)
[2017-09-05 05:54] LABS: INR 1.13 (0.93-1.08)
[2017-09-05 06:06] LABS: CALCIUM 9.3 mg/dL (8.4-10.5)
[2017-09-05] MEDS: Pantoprazole 40 mg EC Tab PO SCH (11:04)
[2017-09-05] MEDS: Potassium Chloride 20 mEq ER Tab PO SCH ×3 (11:04→17:24)
[2017-09-05] MEDS: Multivitamin Therapeutic Tab PO SCH (11:07)
--- NOTE | 2017-09-05 17:59 | PN ---
DATE: 09/05/2017 SUBJECTIVE: The patient is seen earlier this morning in room 128, bed 5. No fevers and no chills. No nausea. PHYSICAL EXAMINATION: VITAL SIGNS: Temperature is 98, blood pressure is 117/58, respiratory rate of 20, and the patient is on room air. HEENT: Unremarkable. NECK: Supple. LUNGS: Decreased breath sounds. HEART: Normal S1 and S2. ABDOMEN: Soft and nontender. No rebound or guarding. No masses. LABORATORY DATA: [place] [address], hemoglobin of 11, and platelets of 253. Chemistries reveal BUN of 27, creatinine of 1.6, and procalcitonin is 37. Microbiology reveals the patient's axillary MRSA is not detected. Urine cultures are negative. Blood cultures are negative. Review of orders reveals the patient has received a dose of vancomycin initially, currently off antibiotics. ASSESSMENT AND PLAN: This is a 77-year-old male seen earlier this morning in the ICU 128, bed 5. Currently, he is comfortable, currently with systemic inflammatory response syndrome due to an acute cerebrovascular accident, [id number] myocardial infarction with acute atrial flutter with arteriovenous block with acute renal failure from rhabdomyolysis and the patient with chronic obstructive lung disease, chronic anemia, coronary artery disease, currently off antibiotics, and afebrile. We will monitor fevers and white count and look for development of any new infection. The patient is at risk for developing nosocomial infection. Shlomo Leong MD
[2017-09-06] MEDS ORDERED: Vancomycin 1gm in NS 250ml 1 GM/250 ML BAG IVPB STA (03:51)
[2017-09-06] MEDS ORDERED: Piperacillin/Tazobact 3.375 gm 100 ML IVPB STA (03:51)
[2017-09-06] MEDS ORDERED: Piperacillin/Tazobact 2.25gm 2.25 GM/100 ML BAG IVPB STA (04:41)
[2017-09-06 04:57] LABS: BASO # 0.03 K/mm3 (0.0-2.0); BASO % 0.3 % (0.0-3.0); EOS # 0.2 (0.0-0.7); EOS % 1.9 % (1.5-5.0); GRAN # 9.98 (1.4-6.5); GRAN % 91.4 % (50.0-68.0); HEMATOCRIT 33.7 % (42.0-52.0); LYMPH # 0.5 (1.2-3.4); LYMPH % 4.5 % (22.0-35.0); MEAN CELL VOLUME 88.2 fl (80.0-105.0); MEAN CORPUSCULAR HEMOGLOBIN 28.5 pg (25.0-35.0); MEAN CORPUSCULAR HGB CONC 32.3 g/dl (31.0-37.0); MONO # 0.2 (0.1-0.6); MONO % 1.9 % (1.0-6.0); PLATELET COUNT 239 10^3/uL (120.0-450.0); RED CELL DISTRIBUTION WIDTH 15.3 % (11.5-14.5); WHITE BLOOD COUNT 10.9 10^3/ul (4.5-11.0)
[2017-09-06 05:12] LABS: INR 2.18 (0.93-1.08)
[2017-09-06 05:29] LABS: URINE APPEARANCE CLEAR (CLEAR); URINE BILIRUBIN NEGATIVE (NEGATIVE); URINE COLOR YELLOW (YELLOW); URINE GLUCOSE (UA) NEGATIVE (NEGATIVE); URINE KETONE NEGATIVE (NEGATIVE)
[2017-09-06 05:30] LABS: URINE BLOOD LARGE (NEGATIVE); URINE LEUKOCYTE ESTERASE TRACE Leu/uL (NEGATIVE); URINE PROTEIN TRACE mg/dL (<30 mg/dL); URINE UROBILINOGEN 0.2 E.U./dL (<1 E.U./dL)
[2017-09-06 05:42] LABS: URINE BACTERIA MOD (NEG)
--- NOTE | 2017-09-06 08:23 | RAD ---
HISTORY: elevated temp COMPARISON: Chest x-ray performed 08/30/17 TECHNIQUE: Chest, one view. FINDINGS: LUNGS: Moderate to severe interstitial prominence consistent with infection or edema. PLEURA: No significant pleural effusion identified. No definite pneumothorax . CARDIOVASCULAR: Cardiomegaly. Atherosclerotic calcifications of the aorta. OSSEOUS STRUCTURES: Degenerative changes of the spine and shoulders. VISUALIZED UPPER ABDOMEN: Unremarkable. OTHER FINDINGS: None. IMPRESSION: Moderate to severe interstitial prominence may represent infection or edema. Correlate clinically. Cardiomegaly.
[2017-09-06 08:44] LABS: BAND 3 % (0-2); EOSINOPHIL 2 % (0.0-3.0); NEUTROPHIL 91 % (50.0-70.0); PLATELET ESTIMATE NORMAL (NORMAL)
[2017-09-06] MEDS: Potassium Chloride 20 mEq ER Tab PO SCH ×3 (10:08→17:15)
[2017-09-06] MEDS: Multivitamin Therapeutic Tab PO SCH (10:08)
[2017-09-06] MEDS: Pantoprazole 40 mg EC Tab PO SCH (10:08)
[2017-09-06] MEDS: Enoxaparin 60 mg Syringe SC SCH ×2 (10:13→22:08)
--- NOTE | 2017-09-06 10:15 | PN ---
DATE: 09/06/2017 LOCATION: The patient is in the ICU 128, bed 5. SUBJECTIVE: The patient is in no acute distress, nontoxic. Had an uneventful night. PHYSICAL EXAMINATION: VITAL SIGNS: On exam, the patient's temperature is 98, blood pressure is 136/60, respiratory rate of 18. Last night, the patient did have a temperature of 102.7, early this morning actually at 03:00 in the morning. Heart rate of 23. HEENT: Unremarkable. NECK: Supple. LUNGS: Have decreased breath sounds. HEART: Normal S1 and S2. ABDOMEN: Soft. LABORATORY DATA: Reveals a white count this morning of 10,900, hemoglobin of 10, platelets of 239. Chemistries reveals BUN of 27, creatinine of 1.6. Troponin of 0.58. Procalcitonin is noted at 37. Microbiology has been negative. MEDICATIONS: Review of orders reveals the patient is on no antibiotics at this time. ASSESSMENT AND PLAN: This is a 77-year-old male seen earlier this morning in 128, bed 5, with systemic inflammatory response syndrome, with acute cerebrovascular accident, [id number] myocardial infarction, acute atrial flutter with arteriovenous block and acute renal failure, rhabdomyolysis, chronic obstructive lung disease, chronic anemia, coronary artery disease, off of antibiotics. The patient had a new fever last night, early this morning of 102. Chest x-ray this morning, which was [id number] interstitial prominence. We will order repeat pancultures, blood cultures, urine cultures, sputum cultures, and we will continue to keep the patient off of antibiotics. The patient has INR of 2.18, makes deep venous thrombosis less likely. We will follow the liver function tests and keep the patient off of antibiotics. New fever, new tachycardia, and new systemic inflammatory response syndrome, pending repeat francis culture results, and I will also order a new procalcitonin. We will follow closely with you. Shlomo Leong MD
--- NOTE | 2017-09-06 20:34 | PN ---
DATE: 09/06/2017 SUBJECTIVE: The patient is seen this Thursday morning in intensive care unit, ICU bed 5. He is sitting out of bed in the chair, awake and in good spirits. Quite talkative, recognizes me, but very forgetful as to the sequence of events leading to this hospital stay. PHYSICAL EXAMINATION: HEART: Not tachycardic, but irregular. LUNGS: Good aeration right and left. IMPRESSION AND PLAN: Stroke, resolving nicely. No evidence of sepsis initially; however, now, the patient is running fever with elevated white count. Cultures were sent and one dose of antibiotic was given. He will be reevaluated again by infectious disease. We will follow. Douglas Taylor MD
[2017-09-07 06:44] LABS: INR 3.29 (0.93-1.08)
--- NOTE | 2017-09-07 09:25 | PN ---
DATE: 09/05/2017 SUBJECTIVE: The patient was seen this Thursday morning in Intensive Care, bed 5. He is in room with one-to-one monitor in view of his fall yesterday in trying to get off from chair. He fell, but there is no apparent injury. Today, he was quite comfortable. Mental status exam at baseline, although, he is quite sleepy right now after getting up early and having breakfast and morning wash. Vital signs stable. Labs are improving. Follow up notes from multitude of consultants in Intensive Care is appreciated. We will continue to advance the patient's progress to out of bed when he is able to get out of ICU until the telemetry floor. We will continue to monitor his new atrial fibrillation and work on anticoagulation and ultimate transfer to acute rehab facility as he was highly functional and ambulatory prior to the stroke. Douglas Taylor MD
[2017-09-07] MEDS: Multivitamin Therapeutic Tab PO SCH (09:33)
[2017-09-07] MEDS: Potassium Chloride 20 mEq ER Tab PO SCH ×3 (09:33→17:40)
[2017-09-07] MEDS: Pantoprazole 40 mg EC Tab PO SCH (09:34)
--- NOTE | 2017-09-07 10:30 | CP.PCM.PN ---
Subjective - Date & Time of Evaluation Date of Evaluation: 09/07/17 Time of Evaluation: 10:00 - Subjective Subjective: Patient is resting comfortably in bed, no fevers overnight, not in distress, no diarrhea, has Melgar catheter, no abdominal pain, no cough, no SOB at rest. Objective - Vital Signs/Intake and Output Vital Signs (last 24 hours): Temp Pulse Resp BP Pulse Ox 99.2 F 78 25 H 132/98 H 90 L 09/07/17 06:30 09/07/17 06:00 09/07/17 05:27 09/07/17 05:27 09/07/17 06:00 Intake and Output: 09/06/17 09/07/17 18:59 06:59 Intake Total 2400 Output Total 800 1050 Balance 1600 -1050 - Medications Medications: Current Medications Acetaminophen (Tylenol 325mg Tab) 650 mg PO Q6H PRN PRN Reason: Temperature Aspirin (Aspirin Chewable) 81 mg PO DAILY [facility] Last Admin: 09/06/17 10:08 Dose: 81 mg Atorvastatin Calcium (Lipitor) 20 mg NG DAILY [facility] Last Admin: 08/30/17 09:00 Dose: 20 mg Carvedilol (Coreg) 12.5 mg PO BID [facility] Last Admin: 09/06/17 17:17 Dose: 12.5 mg Diltiazem HCl (Cardizem) 30 mg PO TID [facility] Last Admin: 09/06/17 17:17 Dose: 30 mg Enoxaparin Sodium (Lovenox) 55 mg SC Q12H [facility] PRN Reason: Protocol Last Admin: 09/06/17 22:08 Dose: Not Given Folic Acid (Folic Acid) 1 mg PO DAILY [facility] Last Admin: 09/06/17 10:08 Dose: 1 mg Hydralazine HCl (Apresoline) 10 mg IVP Q6 PRN PRN Reason: Systolic Blood Pressure Last Admin: 09/03/17 01:10 Dose: 10 mg Hydralazine HCl (Apresoline) 10 mg PO QID PRN PRN Reason: for SBP >170 Last Admin: 09/06/17 02:30 Dose: 10 mg Lisinopril (Zestril) 20 mg PO DAILY [facility] Last Admin: 09/06/17 10:09 Dose: 20 mg Lorazepam (Ativan) 1 mg IVP Q6H PRN; Protocol PRN Reason: Anxiety Last Admin: 09/06/17 01:22 Dose: 1 mg Multivitamins (Thera Tab) 1 tab PO 0800 [facility] Last Admin: 09/06/17 10:08 Dose: 1 tab Pantoprazole Sodium (Protonix Ec Tab) 40 mg PO DAILY [facility] Last Admin: 09/06/17 10:08 Dose: 40 mg Potassium Chloride (K-Dur 20 Meq Er Tab) 20 meq PO TID [facility] Last Admin: 09/06/17 17:15 Dose: 20 meq Thiamine HCl (Vitamin B1 Tab) 100 mg PO DAILY [facility] Last Admin: 09/06/17 10:09 Dose: 100 mg Warfarin Sodium (Coumadin) 5 mg PO 1800 [facility] PRN Reason: Protocol Last Admin: 09/06/17 17:15 Dose: 5 mg - Labs Labs: 09/06/17 04:00 09/05/17 05:00 PT 37.1 SECONDS (9.4-12.5) H 09/07/17 05:30 INR 3.29 (0.93-1.08) H 09/07/17 05:30 APTT 50.2 Seconds (25.1-36.5) H 09/04/17 05:30 - Constitutional Appears: Non-toxic - Head Exam Head Exam: NORMAL INSPECTION - ENT Exam ENT Exam: Mucous Membranes Moist - Neck Exam Neck Exam: absent: Lymphadenopathy, Meningismus - Respiratory Exam Respiratory Exam: Decreased Breath Sounds - Cardiovascular Exam Cardiovascular Exam: +S1, +S2 - GI/Abdominal Exam GI & Abdominal Exam: Soft. absent: Tenderness Assessment and Plan - Assessment and Plan (Free Text) Plan: Assessment new onset Systemic Inflammatory Response Syndrome from 2 days ago, R/O sepsis but so far no evidence of infection; acute CVA and NSTEMI with acute atrial flutter and AV block COPD chronic anemia CAD Plan repeat blood cx are negative so far; follow up repeat urine cx; CXR shows some interstitial prominence but may be more of edema; PCT is slightly elevated but patient has renal failure and the PCT is actually much lower compared to the admission PCT will continue to monitor clinically off antibiotics for now - advised to have Melgar removed
[2017-09-07] MEDS: Enoxaparin 60 mg Syringe SC SCH (12:48)
--- NOTE | 2017-09-07 18:54 | PN ---
DATE: 09/07/2017 REASON FOR CONSULTATION AND FOLLOWUP: Atrial fibrillation, CVA, altered mental status, sepsis. SUBJECTIVE: The patient is much awake and alert, sitting in chair, not in apparent distress, was one-to-one yesterday. PHYSICAL EXAMINATION: As follows: VITAL SIGNS: Temperature afebrile, heart rate 89, blood pressure 127/69. HEENT: PERRLA. Extraocular muscles intact. NECK: Supple. No carotid bruits or thyromegaly. CHEST: Clear to auscultation. HEART: S1 and S2, regular. ABDOMEN: Soft. EXTREMITIES: Clubbing and cyanosis negative. LABORATORY DATA: Blood workup as follows: WBC 10.9, hemoglobin 10.9, hematocrit 33.7, platelet count 239. Chemistry shows sodium 142, potassium 4, chloride 110, carbon dioxide 27, anion gap of 9, BUN 27, creatinine 1.6. IMPRESSION: Atrial fibrillation, cardiomyopathy, altered mental status, sepsis, subacute to chronic parietal lobe infarct, ejection fraction 33% calculated, mild aortic regurgitation, moderate mitral regurgitation, loht-ca-nodhgbhd tricuspid regurgitation, RV systolic pressure 49 and calculated ejection fraction 33%, supratherapeutic INR, non-ST segment myocardial infarction - asymptomatic, altered mental status, hypertension. Magnetic resonance angiogram is unremarkable. Magnetic resonance imaging of the brain showed subacute to chronic parietal lobe infarct. Altered mental status improving. 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 We will treat the patient medically. Rate is well controlled. For the atrial fibrillation, we will change Cardizem to CD 120 mg from tomorrow. Continue Coreg 12.5 mg daily. We will hold Coumadin because INR is 3.25. We will discontinue Lovenox. We will follow with you. Interim, continue NESSA inhibitors as mentioned, Coreg and Cardizem to control the heart rate and Coumadin if INR is around 2 and the goal is to keep INR 2. We will follow with you. Continue rehab. Change Cardizem to CD from tomorrow to CD 120 for compliance better. We will check PT/INR tomorrow. If INR trends down, we will restart Coumadin; otherwise, we will hold. We will discuss with you. Thank you Dr. Taylor for providing us the opportunity in taking care of the patientAdolph. Paresh Reaves MD [facility] # [id number]
[2017-09-08 07:34] LABS: INR 4.02 (0.93-1.08)
[2017-09-08] MEDS: Multivitamin Therapeutic Tab PO SCH (10:24)
[2017-09-08] MEDS: Potassium Chloride 20 mEq ER Tab PO SCH ×2 (10:24→17:45)
[2017-09-08] MEDS: diltiaZEM 120 mg/24 Hours CD Cap PO SCH (10:24)
[2017-09-08] MEDS: Pantoprazole 40 mg EC Tab PO SCH (10:25)
--- NOTE | 2017-09-08 11:33 | PN ---
DATE: 09/08/2017 SUBJECTIVE: The patient was seen earlier today in [facility], bed 5. No fevers and chills. No chest pain. PHYSICAL EXAMINATION: VITAL SIGNS: On exam, temperature is 98, blood pressure is 120/70, respiratory rate of 16. HEENT: Unremarkable. NECK: Supple. LUNGS: Decreased breath sounds. HEART: Normal S1, S2. ABDOMEN: Soft, nontender. LABORATORY DATA: Reveals white count of 10,000, hemoglobin of 10, and platelets of 239. Chemistries are noted. Creatinine of 1.6. MEDICATIONS: Review of orders reveals the patient to be off of antibiotics. Microbiology reveals the patient's blood cultures are negative, urine cultures are negative. Repeat cultures are negative. The patient's last procalcitonin from the 3rd is 0.69 . ASSESSMENT AND PLAN: New onset of systemic inflammatory response syndrome. The patient with acute cerebrovascular accident, huv-SY-bbhzmnpts myocardial infarction, acute atrial flutter and AV block with chronic obstructive pulmonary disease, chronic anemia, and coronary artery disease. Thus far, all cultures are negative, and x-ray is negative. Off of antibiotics, afebrile. The patient is at risk for developing nosocomial infections. Shlomo Leong MD
--- NOTE | 2017-09-08 13:17 | PN ---
DATE: 09/08/2017 REASON FOR CONSULTATION AND FOLLOWUP: Atrial fibrillation, CVA, altered mental status, sepsis. SUBJECTIVE: The patient denies any chest pain or shortness of breath, lying on the bed, comfortable, not in apparent distress, still one-to-one. OBJECTIVE: GENERAL: Not in apparent distress, one-to-one. VITAL SIGNS: As follows: Temperature afebrile, heart rate 87, blood pressure 149/86. HEENT: PERRLA. Extraocular muscles intact. NECK: Supple. No carotid bruits or thyromegaly. CHEST: Clear to auscultation. HEART: S1 and S2, regular. ABDOMEN: Soft. EXTREMITIES: Clubbing and cyanosis negative. LABORATORY DATA: Blood workup: WBC 10.9, hemoglobin 10.9, hematocrit 33.7, platelet count 239. Chemistry shows sodium 140, potassium 4, chloride of 110, carbon dioxide 27, anion gap of 9, BUN 27, creatinine 1.6. IMPRESSION: A 77-year-old male with a past medical history of hypertension, admitted with atrial fibrillation, altered mental status, nbcbknzg-ig-zzclgws parietal lobe infarct, ejection fraction of 33%, cardiomyopathy, mild aortic regurgitation, moderate mitral regurgitation, bhur-rh-atwimvna tricuspid regurgitation, RV systolic pressure of 49, vvr-QJ-obxektu myocardial infarction asymptomatic, altered mental status, hypertension. MRA (magnetic resonance angiogram) is unremarkable. MRI of the brain showed hlhekxtc-uj-rjsnfma parietal lobe infarct. Altered mental status improving, still off and on needs one-to-one. INR is supratherapeutic 4.02, yesterday was 3.9. PLAN: To hold Coumadin. Followup PT and INR. When the INR reaching below 2.5, we will restart. Continue Cardizem CD 120 mg daily. Continue Coreg 12.5 mg daily. Continue to hold Coumadin because of elevated INR. Rehab. Continue lisinopril. We will follow with you. Thank you for providing us the opportunity in taking care of the patient, Abhinav Farfan. Since the patient is asymptomatic, though troponin is positive, kdy-IG-jaoieqn elevation myocardial infarction, recent history of stroke, , we will try to treat the patient medically. No plan for cardiac catheterization. When we look the patient in totality, cardiac catheterization will be more detrimental than helping him. Paresh Reaves MD
[2017-09-09 07:09] LABS: INR 3.1 (0.93-1.08)
[2017-09-09] MEDS: Potassium Chloride 20 mEq ER Tab PO SCH ×3 (11:12→17:50)
[2017-09-09] MEDS: Pantoprazole 40 mg EC Tab PO SCH (11:12)
[2017-09-09] MEDS: diltiaZEM 120 mg/24 Hours CD Cap PO SCH (11:12)
[2017-09-09] MEDS: Multivitamin Therapeutic Tab PO SCH (11:12)
--- NOTE | 2017-09-09 14:18 | PN ---
DATE: REASON FOR CONSULTATION AND FOLLOWUP: Atrial fibrillation, CVA, altered mental status, and sepsis. SUBJECTIVE: The patient denies any chest pain, shortness of breath or any palpitation. Now, the patient is in 377, bed 2, on one-to-one observation. 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 VITAL SIGNS: As follows: Temperature afebrile, heart rate 62, and blood pressure 139/62. HEENT: PERRLA. Extraocular muscles intact. NECK: Supple. No carotid bruits or thyromegaly. CHEST: Clear to auscultation. HEART: S1 and S2. Regular. ABDOMEN: Soft. EXTREMITIES: Clubbing and cyanosis negative. LABORATORY DATA: Blood workup as follows: WBC 10.9, hemoglobin 10.9, hematocrit 33.7, and platelet count 239. Chemistry shows sodium 142, potassium 4, chloride 110, carbon dioxide 27, anion gap of 9, BUN 27, and creatinine 1.6. IMPRESSION: Renal insufficiency, qmo-GX-gleykuo myocardial infarction, coronary artery disease, altered mental status, confused, cerebrovascular accident, subacute to chronic right parietal lobe infarct, cardiomyopathy with ejection fraction of 33%, mild aortic regurgitation, moderate mitral regurgitation, kceh-vf-vadourln tricuspid regurgitation, right ventricular systolic pressure of 49. RECOMMENDATIONS: Coumadin was on hold because of the supratherapeutic INR, today it was 3.1. We will start 2 mg of Coumadin today and follow up PT/INR. In the interim, continue Cardizem CD 120 mg daily, continue Coreg 12.5 mg, and continue lisinopril. INR is trending down, so we will start low dose of Coumadin and follow up PT/INR. Discharged currently to rehab facility. We will follow with you. Thank you Dr. Taylor for providing us the opportunity in taking care of the patient, Adolph La. Paresh Reaves MD
--- NOTE | 2017-09-09 18:42 | PN ---
DATE: 09/09/2017 SUBJECTIVE: The patient seen earlier this morning in room 377, bed 2. No fevers and no chills. PHYSICAL EXAMINATION: VITAL SIGNS: Temperature of 98, blood pressure is 120/70, respiratory rate of 16. HEENT: Unremarkable. NECK: Supple. LUNGS: Have decreased breath sounds. HEART: Normal S1, S2. ABDOMEN: Soft. LABORATORY EXAMINATION: Reveals a white count down to 10,000, hemoglobin of 10.9, and platelets of 239. BUN of 27, creatinine 1.6, procalcitonin 0.69. Urinalysis is noted. Review of orders, reveals the patient to be off of antibiotics. ASSESSMENT AND PLAN: This is a 77-year-old male with systemic inflammatory response syndrome, acute cerebrovascular accident, aft-IA-cvdynipza myocardial infarction, acute atrial flutter and atrioventricular block and chronic obstructive lung disease, chronic anemia, coronary artery disease, off of antibiotics, afebrile, cultures negative. The patient is at risk for developing nosocomial infections. Shlomo Leong MD
--- NOTE | 2017-09-10 06:16 | CON ---
HISTORY OF PRESENT ILLNESS: The patient is a 77-year-old male. The patient was brought in because patient was found unresponsive on the floor. Psych consult was called for evaluation of periods of confusion and change in mental status, and also the patient had episode when he was trying to pull of his IV line. The patient was seen and examined today. The patient presented to be alert, but disoriented. The patient has no idea that he is in the hospital, but the patient seems to be in good mood. The patient was observed talking to someone over the phone. When this editorial writer asked whom he is talking, the patient said "I don't know, I was talking to some lady." The patient denied being depressed. The patient denied thoughts of harming himself or others. The patient seems to have dementia which seems to be iytskngx-kb-urglnyv, but patient was very pleasant and cooperative. As per one-to-one sitter, the patient ate 100% of his meal and has good appetite. VITAL SIGNS: Reviewed, seems to be stable. MEDICATIONS: Reviewed. The patient is on aspirin; Tylenol; Lipitor; Coreg; Cardizem; folic acid; hydralazine; Zestril, Ativan 1 mg IV push q.6h. as needed for anxiety and Ativan by mouth q.6h. p.r.n. for restlessness; multivitamins; Protonix; K-Dur; vitamin B; Coumadin. This editorial writer reviewed notes from medical physics researcher, Infectious Disease, as well as primary care physician. The patient has multiple medical issues, renal insufficiency; non-ST segment myocardial infarction; coronary artery disease. The patient is confused. The patient has cerebrovascular accident, ytncuotk-xs-ehqddlf right parietal lobe infarct, and cardiomyopathy with ejection fraction of 33%. The patient has multiple medical issues. MENTAL STATUS EXAMINATION: As this editorial writer described above, patient was alert but disoriented, pleasant, cooperative. The patient does not know whom he talked to over the phone, but seems enjoyed that conversation. Intermittent eye contact. Speech was confabulation. Thought process seems to be circumstantial and tangential. Thought content, the patient denied thoughts of harming himself or others. Denied intents or plan. Insight and judgment were impaired. Impulses seemed to be better controlled, but the patient had episodes of confusion and trying to pull his IVs which is improved significantly. IMPRESSION: Most likely, patient has delirium as well as dementia. The patient has multiple medical issues including cerebrovascular accident, non-ST myocardial infarction, cardiomyopathy, history of falls which contributed to the patient's confusion, but overall the patient is improving. PLAN: This editorial writer would be in agreement to continue Ativan as it is. The patient will not benefit from antipsychotic medication, especially second generation of antipsychotic medication could give CVA. The patient had one already. This editorial writer would recommend in case of severe agitation or in case of hallucinations, small dose of haloperidol 0.5 mg by mouth, IM or p.o. q.12h. only as needed. The patient's family need to be involved as well. We will follow up and advise accordingly. Thank you very much for letting me to participate in the care of your patient. Should you have any questions, give a call to advanced nurse practitioner, Estefanía Mcgraw. Loretta Morales MD
[2017-09-10 07:24] LABS: INR 2.47 (0.93-1.08)
--- NOTE | 2017-09-10 10:22 | CP.PCM.PN ---
<Tran Herndon - Last Filed: 09/10/17 10:21> Subjective - Date & Time of Evaluation Date of Evaluation: 09/10/17 Time of Evaluation: 10:21 - Subjective Subjective: PGY-[address] Currie's service Patient seen and examined at bedside. No acute distress. Patient has increasing confusion. Patient alert and oriented to person only. He is follow commends. He denies pain, headache, dizziness. He is tolerating pureed diet. Objective - Vital Signs/Intake and Output Vital Signs (last 24 hours): Temp Pulse Resp BP Pulse Ox 98.5 F 67 20 118/64 94 L 09/10/17 06:00 09/10/17 06:00 09/10/17 06:00 09/10/17 06:00 09/10/17 06:00 Intake and Output: 09/10/17 09/10/17 06:59 18:59 Intake Total 480 Output Total 1100 Balance -620 - Medications Medications: Current Medications Acetaminophen (Tylenol 325mg Tab) 650 mg PO Q6H PRN PRN Reason: Temperature Aspirin (Aspirin Chewable) 81 mg PO DAILY [facility] Last Admin: 09/09/17 11:13 Dose: 81 mg Atorvastatin Calcium (Lipitor) 20 mg NG DAILY [facility] Last Admin: 08/30/17 09:00 Dose: 20 mg Carvedilol (Coreg) 12.5 mg PO BID [facility] Last Admin: 09/09/17 17:49 Dose: 12.5 mg Diltiazem HCl (Cardizem Cd) 120 mg PO DAILY [facility] Last Admin: 09/09/17 11:12 Dose: 120 mg Folic Acid (Folic Acid) 1 mg PO DAILY [facility] Last Admin: 09/09/17 11:12 Dose: 1 mg Hydralazine HCl (Apresoline) 10 mg IVP Q6 PRN PRN Reason: Systolic Blood Pressure Last Admin: 09/03/17 01:10 Dose: 10 mg Hydralazine HCl (Apresoline) 10 mg PO QID PRN PRN Reason: for SBP >170 Last Admin: 09/06/17 02:30 Dose: 10 mg Lisinopril (Zestril) 20 mg PO DAILY [facility] Last Admin: 09/09/17 11:11 Dose: 20 mg Lorazepam (Ativan) 1 mg IVP Q6H PRN; Protocol PRN Reason: Anxiety Last Admin: 09/09/17 21:34 Dose: 1 mg Lorazepam (Ativan) 1 mg PO Q6 PRN; Protocol PRN Reason: Restlessness Last Admin: 09/08/17 02:38 Dose: 1 mg Multivitamins (Thera Tab) 1 tab PO 0800 [facility] Last Admin: 09/09/17 11:12 Dose: 1 tab Pantoprazole Sodium (Protonix Ec Tab) 40 mg PO DAILY [facility] Last Admin: 09/09/17 11:12 Dose: 40 mg Potassium Chloride (K-Dur 20 Meq Er Tab) 20 meq PO TID [facility] Last Admin: 09/09/17 17:50 Dose: 20 meq Thiamine HCl (Vitamin B1 Tab) 100 mg PO DAILY [facility] Last Admin: 09/09/17 11:12 Dose: 100 mg Warfarin Sodium (Coumadin) 2 mg PO 1800 [facility] PRN Reason: Protocol Last Admin: 09/09/17 17:49 Dose: 2 mg - Labs Labs: 09/06/17 04:00 09/05/17 05:00 PT 27.7 SECONDS (9.4-12.5) H 09/10/17 06:30 INR 2.47 (0.93-1.08) H 09/10/17 06:30 APTT 50.2 Seconds (25.1-36.5) H 09/04/17 05:30 - Constitutional Appears: No Acute Distress - Head Exam Head Exam: ATRAUMATIC, NORMAL INSPECTION, NORMOCEPHALIC - Eye Exam Eye Exam: EOMI, Normal appearance - ENT Exam ENT Exam: Mucous Membranes Moist - Respiratory Exam Respiratory Exam: NORMAL BREATHING PATTERN. absent: Respiratory Distress - Cardiovascular Exam Cardiovascular Exam: REGULAR RHYTHM - Neurological Exam Neurological Exam: Alert, Awake, CN II-XII Intact. absent: Oriented x3 Neuro motor strength exam: Left Upper Extremity: 5, Right Upper Extremity: 5, Left Lower Extremity: 5, Right Lower Extremity: 5 - Skin Skin Exam: Dry, Intact, Normal Color, Warm Assessment and Plan - Assessment and Plan (Free Text) Assessment: 77 yo male with unknown PMH presents with unresponsiveness due to CVA, found to have increasing confusion 1. CVA 2. SIRS 3. a. fib 4. NSTEMI 5. rhabdomyolysis 6. uncontrolled HTN - CT head is negative - MRI showed subacute to chronic right parietal infarct, correlates with left sided weakness - MRA unremarkable - control BP, SBP between 130-140 - treat NSTEMI - monitor electrolytes, replace as needed - asa, plavix - PT/OT when more alert - avoid sedative medication Thank you for the consult, please reconsult if needed Case reviewed and discussed with Dr. Currie <Baljinder Currie - Last Filed: 09/10/17 17:55> Objective - Vital Signs/Intake and Output Vital Signs (last 24 hours): Temp Pulse Resp BP Pulse Ox 98.7 F 47 L 16 125/73 93 L 09/10/17 17:16 09/10/17 17:49 09/10/17 17:16 09/10/17 17:49 09/10/17 17:16 Intake and Output: 09/10/17 09/10/17 06:59 18:59 Intake Total 480 1060 Output Total 1100 1000 Balance -620 60 - Medications Medications: Current Medications Acetaminophen (Tylenol 325mg Tab) 650 mg PO Q6H PRN PRN Reason: Temperature Aspirin (Aspirin Chewable) 81 mg PO DAILY [facility] Last Admin: 09/10/17 11:11 Dose: 81 mg Atorvastatin Calcium (Lipitor) 20 mg NG DAILY [facility] Last Admin: 08/30/17 09:00 Dose: 20 mg Carvedilol (Coreg) 12.5 mg PO BID [facility] Last Admin: 09/10/17 17:49 Dose: 12.5 mg Diltiazem HCl (Cardizem Cd) 120 mg PO DAILY [facility] Last Admin: 09/10/17 11:10 Dose: 120 mg Folic Acid (Folic Acid) 1 mg PO DAILY [facility] Last Admin: 09/10/17 11:08 Dose: 1 mg Hydralazine HCl (Apresoline) 10 mg IVP Q6 PRN PRN Reason: Systolic Blood Pressure Last Admin: 09/03/17 01:10 Dose: 10 mg Hydralazine HCl (Apresoline) 10 mg PO QID PRN PRN Reason: for SBP >170 Last Admin: 09/06/17 02:30 Dose: 10 mg Lisinopril (Zestril) 20 mg PO DAILY [facility] Last Admin: 09/10/17 11:09 Dose: 20 mg Lorazepam (Ativan) 1 mg IVP Q6H PRN; Protocol PRN Reason: Anxiety Last Admin: 09/09/17 21:34 Dose: 1 mg Lorazepam (Ativan) 1 mg PO Q6 PRN; Protocol PRN Reason: Restlessness Last Admin: 09/08/17 02:38 Dose: 1 mg Multivitamins (Thera Tab) 1 tab PO 0800 [facility] Last Admin: 09/10/17 11:11 Dose: 1 tab Pantoprazole Sodium (Protonix Ec Tab) 40 mg PO DAILY [facility] Last Admin: 09/10/17 11:11 Dose: 40 mg Potassium Chloride (K-Dur 20 Meq Er Tab) 20 meq PO TID [facility] Last Admin: 09/10/17 17:43 Dose: Not Given Thiamine HCl (Vitamin B1 Tab) 100 mg PO DAILY [facility] Last Admin: 09/10/17 11:10 Dose: 100 mg Warfarin Sodium (Coumadin) 2 mg PO 1800 [facility] PRN Reason: Protocol Last Admin: 09/10/17 17:42 Dose: 2 mg - Labs Labs: 09/06/17 04:00 09/05/17 05:00 PT 27.7 SECONDS (9.4-12.5) H 09/10/17 06:30 INR 2.47 (0.93-1.08) H 09/10/17 06:30 APTT 50.2 Seconds (25.1-36.5) H 09/04/17 05:30 Attending/Attestation - Attestation I have personally seen and examined this patient.: Yes I have fully participated in the care of the patient.: Yes I have reviewed all pertinent clinical information, including history, physical exam and plan: Yes
[2017-09-10] MEDS: Potassium Chloride 20 mEq ER Tab PO SCH ×3 (11:05→17:43)
[2017-09-10] MEDS: diltiaZEM 120 mg/24 Hours CD Cap PO SCH (11:10)
[2017-09-10] MEDS: Pantoprazole 40 mg EC Tab PO SCH (11:11)
[2017-09-10] MEDS: Multivitamin Therapeutic Tab PO SCH (11:11)
--- NOTE | 2017-09-10 18:11 | PN ---
DATE: 09/10/2017 REASON FOR CONSULTATION AND FOLLOWUP: Atrial fibrillation, CVA, altered mental status, and sepsis. SUBJECTIVE: The patient denies any chest pain, shortness of breath or any palpitation. The patient is in 3R 377, bed 2, not in apparent distress, is still one to one. PHYSICAL EXAMINATION: VITAL SIGNS: As follows: Temperature afebrile, heart rate is 67, and blood pressure 118/64. HEENT: PERRLA. Extraocular muscles intact. NECK: Supple. No carotid bruits or thyromegaly. CHEST: Clear to auscultation. HEART: S1 and S2. Regular. ABDOMEN: Soft. EXTREMITIES: Clubbing and cyanosis negative. LABORATORY DATA: Blood workup as follows: WBC 10.9, hemoglobin 10.9, hematocrit 33.7, and platelet count 239. Chemistry shows sodium 140, potassium 4, chloride 110, carbon dioxide 27, anion gap of 9, BUN 27, and creatinine 1.6. IMPRESSION: Atrial fibrillation, jdk-FV-evpunwa myocardial infarction, altered mental status, cerebrovascular accident, hypokalemia improved, cardiomyopathy with ejection fraction of 33%, mild aortic regurgitation, moderate mitral regurgitation, dzgg-kr-posqxdrq tricuspid regurgitation, right ventricular systolic pressure of 49. RECOMMENDATIONS: Continue Coumadin, is started. Today INR is 2.47, coming down, yesterday it was 3.1, so we started Coumadin 2 mg, we will continue 2 mg Coumadin. Continue Cardizem CD. Continue Coreg 12.5 mg. Continue lisinopril. We will follow followup INR tomorrow. No plan for cardiac catheterization, will be more detrimental for the patient. Thank you Dr. Taylor for providing us the opportunity in taking care of the patient, Abhinav Farfan. Paresh Reaves MD cc: Douglas Taylor MD
--- NOTE | 2017-09-10 22:58 | PN ---
DATE: 09/10/2017 SUBJECTIVE: The patient is in bed, in no acute distress, nontoxic. No fevers. The patient was seen early this morning in room 377, bed 2. PHYSICAL EXAMINATION: VITAL SIGNS: Temperature is 98, blood pressure 120/70, respiratory rate of 18, heart rate of 47. HEENT: Unremarkable. NECK: Supple. HEART: Normal S1 and S2. LUNGS: Have decreased breath sounds. ABDOMEN: Soft. LABORATORY DATA: Reveals a white count of 10,000 and BUN of 27, creatinine of 1.6, and urinalysis is noted, serology is noted. Microbiology is noted. ASSESSMENT AND PLAN: This is a 77-year-old who is seen early this morning in room 377, male with systemic inflammatory response syndrome, acute cerebrovascular accident and non-ST elevation myocardial infarction with acute atrial flutter and atrioventricular block with a chronic obstructive lung disease, chronic anemia, coronary artery disease. Currently, the patient is off of antibiotics, afebrile and review of the medication list confirms the patient to be not on any antibiotics and with white count of 10,900 is at risk for developing nosocomial infections and complications. We will follow with you. Shlomo Leong MD
[2017-09-11 07:01] LABS: INR 2.65 (0.93-1.08)
[2017-09-11 07:40] LABS: BASO # 0.1 K/mm3 (0.0-2.0); BASO % 0.9 % (0.0-3.0); EOS # 0.4 (0.0-0.7); EOS % 3.2 % (1.5-5.0); GRAN # 6.29 (1.4-6.5); GRAN % 57.3 % (50.0-68.0); HEMATOCRIT 30.5 % (42.0-52.0); LYMPH # 3.1 (1.2-3.4); LYMPH % 28.3 % (22.0-35.0); MEAN CELL VOLUME 89.4 fl (80.0-105.0); MEAN CORPUSCULAR HEMOGLOBIN 28.4 pg (25.0-35.0); MEAN CORPUSCULAR HGB CONC 31.8 g/dl (31.0-37.0); MEAN PLATELET VOLUME 10.9 fl (7.0-11.0); MONO # 1.1 (0.1-0.6); MONO % 10.3 % (1.0-6.0); RED CELL DISTRIBUTION WIDTH 14.9 % (11.5-14.5)
[2017-09-11 07:57] LABS: BILIRUBIN,TOTAL 0.4 mg/dL (0.2-1.3); CALCIUM 8.8 mg/dL (8.4-10.5); POTASSIUM 4.8 mmol/L (3.6-5.0); TOTAL PROTEIN 5.8 g/dL (5.8-8.3)
--- NOTE | 2017-09-11 07:57 | PN ---
DATE: 09/10/2017 DAILY PROGRESS NOTE SUBJECTIVE: The patient was seen this evening in room 377, bed 2. I am pleased to see that he is much more awake, much more alert, recognizes me, tone of his voice and disposition, attitude is much near baseline. He is able to recall the year, recognizes me, knows the month, holiday season approaching, etc. PHYSICAL EXAMINATION: HEENT: Conjunctivae are pink. Mucous membranes are moist. NECK: Supple without masses. LUNGS: Show good aeration in right and left with decreased breath sounds and prolonged expiratory phase typical of COPD. HEART: Not tachycardiac. ABDOMEN: Soft. EXTREMITIES: Thin with no edema. IMPRESSION: Cerebrovascular accident. PLAN: The patient has finally turned the corner and improved neurologically. We will need more aggressive, acute rehab. Await input from case management and social work specialist. Douglas Taylor MD
[2017-09-11] MEDS: Multivitamin Therapeutic Tab PO SCH (10:05)
[2017-09-11] MEDS: Potassium Chloride 20 mEq ER Tab PO SCH ×3 (10:06→18:08)
[2017-09-11] MEDS: Pantoprazole 40 mg EC Tab PO SCH (10:07)
[2017-09-11] MEDS: diltiaZEM 120 mg/24 Hours CD Cap PO SCH (10:07)
--- NOTE | 2017-09-11 13:42 | CP.PCM.PN ---
Subjective - Date & Time of Evaluation Date of Evaluation: 09/11/17 Time of Evaluation: 09:00 - Subjective Subjective: PGY-[address] Currie's service Patient seen and examined at bedside. No acute distress. Patient is alert and oriented to person, place and time. He is follow commends. He constinues to have some confusion. He denies pain, headache, dizziness. He is tolerating pureed diet. Objective - Vital Signs/Intake and Output Vital Signs (last 24 hours): Temp Pulse Resp BP Pulse Ox 98.2 F 76 19 131/81 98 09/11/17 06:00 09/11/17 10:07 09/11/17 06:00 09/11/17 10:07 09/11/17 06:00 Intake and Output: 09/11/17 09/11/17 06:59 18:59 Intake Total 960 Output Total 2100 Balance -1140 - Medications Medications: Current Medications Acetaminophen (Tylenol 325mg Tab) 650 mg PO Q6H PRN PRN Reason: Temperature Aspirin (Aspirin Chewable) 81 mg PO DAILY [facility] Last Admin: 09/11/17 10:06 Dose: 81 mg Atorvastatin Calcium (Lipitor) 20 mg NG DAILY [facility] Last Admin: 08/30/17 09:00 Dose: 20 mg Carvedilol (Coreg) 12.5 mg PO BID [facility] Last Admin: 09/11/17 10:07 Dose: 12.5 mg Diltiazem HCl (Cardizem Cd) 120 mg PO DAILY [facility] Last Admin: 09/11/17 10:07 Dose: 120 mg Folic Acid (Folic Acid) 1 mg PO DAILY [facility] Last Admin: 09/11/17 10:07 Dose: 1 mg Hydralazine HCl (Apresoline) 10 mg IVP Q6 PRN PRN Reason: Systolic Blood Pressure Last Admin: 09/03/17 01:10 Dose: 10 mg Hydralazine HCl (Apresoline) 10 mg PO QID PRN PRN Reason: for SBP >170 Last Admin: 09/06/17 02:30 Dose: 10 mg Lisinopril (Zestril) 20 mg PO DAILY [facility] Last Admin: 09/11/17 10:04 Dose: 20 mg Lorazepam (Ativan) 1 mg IVP Q6H PRN; Protocol PRN Reason: Anxiety Last Admin: 09/10/17 23:31 Dose: 1 mg Lorazepam (Ativan) 1 mg PO Q6 PRN; Protocol PRN Reason: Restlessness Last Admin: 09/08/17 02:38 Dose: 1 mg Multivitamins (Thera Tab) 1 tab PO 0800 [facility] Last Admin: 09/11/17 10:05 Dose: 1 tab Pantoprazole Sodium (Protonix Ec Tab) 40 mg PO DAILY [facility] Last Admin: 09/11/17 10:07 Dose: 40 mg Potassium Chloride (K-Dur 20 Meq Er Tab) 20 meq PO TID [facility] Last Admin: 09/11/17 10:06 Dose: 20 meq Thiamine HCl (Vitamin B1 Tab) 100 mg PO DAILY [facility] Last Admin: 09/11/17 10:05 Dose: 100 mg Warfarin Sodium (Coumadin) 2 mg PO 1800 [facility] PRN Reason: Protocol Last Admin: 09/10/17 17:42 Dose: 2 mg - Labs Labs: 09/11/17 07:30 09/11/17 07:40 PT 29.7 SECONDS (9.4-12.5) H 09/11/17 06:15 INR 2.65 (0.93-1.08) H 09/11/17 06:15 APTT 50.2 Seconds (25.1-36.5) H 09/04/17 05:30 - Constitutional Appears: No Acute Distress - Head Exam Head Exam: ATRAUMATIC, NORMAL INSPECTION, NORMOCEPHALIC - Eye Exam Eye Exam: EOMI, Normal appearance - ENT Exam ENT Exam: Mucous Membranes Moist - Respiratory Exam Respiratory Exam: NORMAL BREATHING PATTERN. absent: Respiratory Distress - Cardiovascular Exam Cardiovascular Exam: REGULAR RHYTHM - Neurological Exam Neurological Exam: Alert, Awake, CN II-XII Intact, Oriented x3 Neuro motor strength exam: Left Upper Extremity: 5, Right Upper Extremity: 5, Left Lower Extremity: 5, Right Lower Extremity: 5 - Skin Skin Exam: Dry, Intact, Normal Color, Warm Assessment and Plan - Assessment and Plan (Free Text) Assessment: 77 yo male with PMH of copd, cad, and anemia presents with unresponsiveness due to CVA, found to have increasing confusion most likely with mild cognitive impairment. 1. CVA 2. SIRS 3. a. fib 4. NSTEMI 5. uncontrolled HTN - CT head on 09/04 is negative - MRI showed subacute to chronic right parietal infarct, correlates with left sided weakness - MRA unremarkable - control BP, SBP between 130-140 - treat NSTEMI - monitor electrolytes, replace as needed - continue asa, plavix, lipitor - continue Ativan as needed - PT/OT Case reviewed and discussed with Dr. Currie
[2017-09-11] MEDS ORDERED: Sodium Chloride 0.9% 1,000 ML IV SCH (16:45)
--- NOTE | 2017-09-11 16:55 | CP.PCM.PN ---
Subjective - Date & Time of Evaluation Date of Evaluation: 09/11/17 Time of Evaluation: 11:05 - Subjective Subjective: No fevers, not in distress, no diarrhea, no vomiting. Objective - Vital Signs/Intake and Output Vital Signs (last 24 hours): Temp Pulse Resp BP Pulse Ox 98.2 F 76 19 131/81 98 09/11/17 06:00 09/11/17 10:07 09/11/17 06:00 09/11/17 10:07 09/11/17 06:00 Intake and Output: 09/11/17 09/11/17 06:59 18:59 Intake Total 960 Output Total 2100 Balance -1140 - Medications Medications: Current Medications Acetaminophen (Tylenol 325mg Tab) 650 mg PO Q6H PRN PRN Reason: Temperature Aspirin (Aspirin Chewable) 81 mg PO DAILY [facility] Last Admin: 09/11/17 10:06 Dose: 81 mg Atorvastatin Calcium (Lipitor) 20 mg NG DAILY [facility] Last Admin: 08/30/17 09:00 Dose: 20 mg Carvedilol (Coreg) 12.5 mg PO BID [facility] Last Admin: 09/11/17 10:07 Dose: 12.5 mg Diltiazem HCl (Cardizem Cd) 120 mg PO DAILY [facility] Last Admin: 09/11/17 10:07 Dose: 120 mg Folic Acid (Folic Acid) 1 mg PO DAILY [facility] Last Admin: 09/11/17 10:07 Dose: 1 mg Hydralazine HCl (Apresoline) 10 mg IVP Q6 PRN PRN Reason: Systolic Blood Pressure Last Admin: 09/03/17 01:10 Dose: 10 mg Hydralazine HCl (Apresoline) 10 mg PO QID PRN PRN Reason: for SBP >170 Last Admin: 09/06/17 02:30 Dose: 10 mg Lisinopril (Zestril) 20 mg PO DAILY [facility] Last Admin: 09/11/17 10:04 Dose: 20 mg Lorazepam (Ativan) 1 mg IVP Q6H PRN; Protocol PRN Reason: Anxiety Last Admin: 09/10/17 23:31 Dose: 1 mg Lorazepam (Ativan) 1 mg PO Q6 PRN; Protocol PRN Reason: Restlessness Last Admin: 09/08/17 02:38 Dose: 1 mg Multivitamins (Thera Tab) 1 tab PO 0800 [facility] Last Admin: 09/11/17 10:05 Dose: 1 tab Pantoprazole Sodium (Protonix Ec Tab) 40 mg PO DAILY [facility] Last Admin: 09/11/17 10:07 Dose: 40 mg Potassium Chloride (K-Dur 20 Meq Er Tab) 20 meq PO TID [facility] Last Admin: 09/11/17 10:06 Dose: 20 meq Thiamine HCl (Vitamin B1 Tab) 100 mg PO DAILY [facility] Last Admin: 09/11/17 10:05 Dose: 100 mg Warfarin Sodium (Coumadin) 2 mg PO 1800 [facility] PRN Reason: Protocol Last Admin: 09/10/17 17:42 Dose: 2 mg - Labs Labs: 09/11/17 07:30 09/11/17 07:40 PT 29.7 SECONDS (9.4-12.5) H 09/11/17 06:15 INR 2.65 (0.93-1.08) H 09/11/17 06:15 APTT 50.2 Seconds (25.1-36.5) H 09/04/17 05:30 - Constitutional Appears: Non-toxic - Head Exam Head Exam: NORMAL INSPECTION - Respiratory Exam Respiratory Exam: Decreased Breath Sounds - Cardiovascular Exam Cardiovascular Exam: +S1, +S2 - GI/Abdominal Exam GI & Abdominal Exam: Soft. absent: Tenderness Assessment and Plan - Assessment and Plan (Free Text) Plan: Assessment S/P Systemic Inflammatory Response Syndrome from 2 days ago, no evidence of infection acute CVA and NSTEMI with acute atrial flutter and AV block COPD chronic anemia CAD Plan repeat blood cx are negativeas well as urine cx; CXR shows some interstitial prominence but may be more of edema; PCT is slightly elevated but patient has renal failure and the PCT is actually much lower compared to the admission PCT will continue to monitor clinically off antibiotics since he is at risk for nosocomial infections
--- NOTE | 2017-09-11 19:45 | PN ---
DATE: 09/11/2017 REASON FOR CONSULTATION AND FOLLOWUP: Atrial fibrillation, CVA, altered mental status, and sepsis. SUBJECTIVE: The patient denies any chest pain, shortness of breath or any palpitation. Lying on the bed, sleeping flat, in 377, bed 2. PHYSICAL EXAMINATION: GENERAL: Not in apparent distress. VITAL SIGNS: As follows: Temperature afebrile, heart rate is 70, and blood pressure 129/74. HEENT: PERRLA. Extraocular muscles intact. NECK: Supple. No carotid bruits or thyromegaly. CHEST: Clear to auscultation. HEART: S1 and S2. Regular. ABDOMEN: Soft. EXTREMITIES: Clubbing and cyanosis negative. LABORATORY DATA: Blood workup: WBC 11, hemoglobin 9.7, hematocrit 30.5, and platelet count 339. Chemistry shows sodium 130, potassium 4.1, chloride 104, carbon dioxide 28, anion gap of 11, BUN 22, and creatinine 1.9. IMPRESSION: Altered mental status, atrial fibrillation, cerebrovascular accident, worsening renal insufficiency, cardiomyopathy with ejection fraction of 33%, mild aortic regurgitation, [id number] tricuspid regurgitation, right ventricular systolic pressure of 49. INR today is 2.65. RECOMMENDATIONS: We will continue baby aspirin, continue Cardizem. Continue 2 mg of Coumadin. Hold Lasix in view of worsening renal insufficiency. We will also hold lisinopril because of the worsening renal insufficiency. Further recommendation depending upon hospital course. We will follow with you. We will give little gentle hydration 50 mL an hour normal saline and discontinue lisinopril because of worsening renal insufficiency. We will check electrolytes . We will repeat the lab in the morning. Thank you Dr. Taylor for providing us the opportunity in taking care of the patient,Abhinav Farfan. Paresh Reaves MD
[2017-09-12 08:24] LABS: BASO # 0.09 K/mm3 (0.0-2.0); BASO % 0.8 % (0.0-3.0); EOS # 0.3 (0.0-0.7); EOS % 2.5 % (1.5-5.0); GRAN # 7.95 (1.4-6.5); GRAN % 67.2 % (50.0-68.0); HEMATOCRIT 34.4 % (42.0-52.0); LYMPH # 2.5 (1.2-3.4); MEAN CELL VOLUME 90.1 fl (80.0-105.0); MEAN CORPUSCULAR HEMOGLOBIN 28.8 pg (25.0-35.0); MEAN PLATELET VOLUME 10.4 fl (7.0-11.0); MONO % 8.5 % (1.0-6.0); RED CELL DISTRIBUTION WIDTH 14.6 % (11.5-14.5); WHITE BLOOD COUNT 11.8 10^3/ul (4.5-11.0)
[2017-09-12 08:40] LABS: INR 2.65 (0.93-1.08)
[2017-09-12 08:49] LABS: CALCIUM 9.4 mg/dL (8.4-10.5); POTASSIUM 4.7 mmol/L (3.6-5.0)
[2017-09-12] MEDS: Potassium Chloride 20 mEq ER Tab PO SCH ×3 (09:26→17:19)
[2017-09-12] MEDS: Pantoprazole 40 mg EC Tab PO SCH (09:27)
[2017-09-12] MEDS: diltiaZEM 120 mg/24 Hours CD Cap PO SCH (09:27)
[2017-09-12] MEDS: Multivitamin Therapeutic Tab PO SCH (09:32)
--- NOTE | 2017-09-12 15:31 | PN ---
DATE: 09/12/2017 REASON FOR CONSULTATION: Followup atrial fibrillation, CVA, altered mental status, and sepsis. SUBJECTIVE: The patient mentally much clear. Denies any chest pain, shortness of breath or any palpitation . PHYSICAL EXAMINATION: VITAL SIGNS: As follows, temperature afebrile, heart rate is 70, blood pressure 138/78. HEENT: PERRLA. Extraocular muscles intact. NECK: Supple. No carotid bruits or thyromegaly. CHEST: Clear to auscultation. HEART: S1 and S2, regular. ABDOMEN: Soft. EXTREMITIES: Clubbing and cyanosis negative. LABORATORY DATA: Blood workup as follows: WBC 11.8, hemoglobin 11, hematocrit 34.4, and platelet count 388. Chemistry shows sodium 140, potassium 4.0, chloride 103, carbon dioxide 29, anion gap of 13, BUN 20, and creatinine 2.0. IMPRESSION: Acute kidney injury, chronic renal insufficiency, cardiomyopathy, non-ST segment myocardial infarction, atrial fibrillation, cerebrovascular accident, [id number] tricuspid regurgitation, mild aortic regurgitation, cardiac ejection fraction of 33%, right ventricular systolic pressure of 49. Today's INR is 2.65. RECOMMENDATIONS: Continue Coumadin 2 mg daily. Continue Cardizem CD 120 mg daily. Continue atorvastatin. We will follow, discharge planning to the rehab center. Paresh Reaves MD
[2017-09-13 08:21] LABS: INR 2.69 (0.93-1.08)
[2017-09-13] MEDS: Multivitamin Therapeutic Tab PO SCH (09:01)
[2017-09-13] MEDS: diltiaZEM 120 mg/24 Hours CD Cap PO SCH (10:53)
[2017-09-13] MEDS: Potassium Chloride 20 mEq ER Tab PO SCH ×3 (10:53→17:45)
[2017-09-13] MEDS: Pantoprazole 40 mg EC Tab PO SCH (10:53)
--- NOTE | 2017-09-13 16:28 | PN ---
DATE: REASON FOR CONSULTATION AND FOLLOWUP: Atrial fibrillation, CVA, altered mental status, status post sepsis. SUBJECTIVE: The patient denies any chest pain, shortness of breath or any palpitation. Eating the breakfast. Not in apparent distress. PHYSICAL EXAMINATION: GENERAL: Not in apparent distress. VITAL SIGNS: As follows, temperature afebrile, heart rate is 73, and blood pressure is 113/70. HEENT: PERRLA. Extraocular muscles intact. NECK: Supple. No carotid bruits or thyromegaly. CHEST: Clear to auscultation. HEART: S1 and S2, regular. ABDOMEN: Soft. EXTREMITIES: Clubbing and cyanosis negative. LABORATORY DATA: Blood workup as follows: WBC 11.8, hemoglobin 11, hematocrit 34.4, and platelet count 388. Chemistry shows sodium 140, potassium 4.7, chloride 103, carbon dioxide 29, anion gap 13, BUN 20, and creatinine 2. INR 2.69. IMPRESSION: Atrial fibrillation, cerebrovascular accident, stroke, altered mental status, chronic renal insufficiency, creatinine 2, and cardiomyopathy. Altered mental status improved. [id number] myocardial infarction, [id number] tricuspid regurgitation, mild aortic regurgitation, cardiac ejection fraction of 33%, right ventricular systolic pressure of 48. RECOMMENDATIONS: Continue Coumadin 2 mg daily. Today, INR is 2.69. Continue Cardizem CD. Continue atorvastatin. Rehab. CVS status is stable. Since the patient had CVA and troponin positive, we will try to treat medically to prevent further extension of the infarct. So far, the patient has been asymptomatic, we will try to treat medically. Further recommendation depending upon hospital course. Possible discharge home. We will follow with you. Paresh Reaves MD
--- NOTE | 2017-09-13 18:18 | CP.PCM.PN ---
Subjective - Date & Time of Evaluation Date of Evaluation: 09/13/17 Time of Evaluation: 11:20 - Subjective Subjective: Comfortable, no fevers overnight. Objective - Vital Signs/Intake and Output Vital Signs (last 24 hours): Temp Pulse Resp BP Pulse Ox 98.2 F 70 20 138/78 94 L 09/12/17 06:00 09/12/17 09:27 09/12/17 06:00 09/12/17 09:27 09/12/17 06:00 Intake and Output: 09/12/17 09/12/17 06:59 18:59 Intake Total 120 Output Total 1400 Balance -1280 - Medications Medications: Current Medications Acetaminophen (Tylenol 325mg Tab) 650 mg PO Q6H PRN PRN Reason: Temperature Aspirin (Aspirin Chewable) 81 mg PO DAILY [facility] Last Admin: 09/12/17 09:26 Dose: 81 mg Atorvastatin Calcium (Lipitor) 20 mg NG DAILY [facility] Last Admin: 08/30/17 09:00 Dose: 20 mg Carvedilol (Coreg) 12.5 mg PO BID [facility] Last Admin: 09/12/17 09:26 Dose: 12.5 mg Diltiazem HCl (Cardizem Cd) 120 mg PO DAILY [facility] Last Admin: 09/12/17 09:27 Dose: 120 mg Folic Acid (Folic Acid) 1 mg PO DAILY [facility] Last Admin: 09/12/17 09:27 Dose: 1 mg Hydralazine HCl (Apresoline) 10 mg IVP Q6 PRN PRN Reason: Systolic Blood Pressure Last Admin: 09/03/17 01:10 Dose: 10 mg Hydralazine HCl (Apresoline) 10 mg PO QID PRN PRN Reason: for SBP >170 Last Admin: 09/06/17 02:30 Dose: 10 mg Lorazepam (Ativan) 1 mg IVP Q6H PRN; Protocol PRN Reason: Anxiety Last Admin: 09/10/17 23:31 Dose: 1 mg Lorazepam (Ativan) 1 mg PO Q6 PRN; Protocol PRN Reason: Restlessness Last Admin: 09/12/17 09:32 Dose: 1 mg Multivitamins (Thera Tab) 1 tab PO 0800 [facility] Last Admin: 09/12/17 09:32 Dose: 1 tab Pantoprazole Sodium (Protonix Ec Tab) 40 mg PO DAILY [facility] Last Admin: 09/12/17 09:27 Dose: 40 mg Potassium Chloride (K-Dur 20 Meq Er Tab) 20 meq PO TID [facility] Last Admin: 09/12/17 09:26 Dose: 20 meq Thiamine HCl (Vitamin B1 Tab) 100 mg PO DAILY [facility] Last Admin: 09/12/17 09:27 Dose: 100 mg Warfarin Sodium (Coumadin) 2 mg PO 1800 [facility] PRN Reason: Protocol Last Admin: 09/11/17 18:07 Dose: 2 mg - Labs Labs: 09/12/17 07:40 09/12/17 07:40 PT 29.7 SECONDS (9.4-12.5) H 09/12/17 07:40 INR 2.65 (0.93-1.08) H 09/12/17 07:40 APTT 50.2 Seconds (25.1-36.5) H 09/04/17 05:30 - Constitutional Appears: Non-toxic - Head Exam Head Exam: NORMAL INSPECTION - ENT Exam ENT Exam: Mucous Membranes Moist - Neck Exam Neck Exam: absent: Meningismus - Respiratory Exam Respiratory Exam: Decreased Breath Sounds - Cardiovascular Exam Cardiovascular Exam: +S1, +S2 - GI/Abdominal Exam GI & Abdominal Exam: Soft. absent: Tenderness Assessment and Plan - Assessment and Plan (Free Text) Plan: Assessment S/P Systemic Inflammatory Response Syndrome from 2 days ago, no evidence of infection acute CVA and NSTEMI with acute atrial flutter and AV block COPD chronic anemia CAD Plan repeat blood cx are negativeas well as urine cx; CXR shows some interstitial prominence but may be more of edema; PCT is slightly elevated but patient has renal failure and the PCT is actually much lower compared to the admission PCT will continue to monitor clinically off antibiotics, trend WBC count since he is at risk for hospital-acquired infections
[2017-09-14 04:54] VITALS: RESP 18
[2017-09-14 06:37] LABS: INR 2.67 (0.93-1.08)
[2017-09-14] MEDS: Multivitamin Therapeutic Tab PO SCH (08:35)
[2017-09-14] MEDS: Pantoprazole 40 mg EC Tab PO SCH (09:42)
[2017-09-14] MEDS: diltiaZEM 120 mg/24 Hours CD Cap PO SCH (09:45)
[2017-09-14] MEDS: Potassium Chloride 20 mEq ER Tab PO SCH (10:00)
--- NOTE | 2017-09-14 12:03 | CP.PCM.PN ---
Subjective - Date & Time of Evaluation Date of Evaluation: 09/14/17 Time of Evaluation: 10:50 - Subjective Subjective: Comfortable, no fevers, not in distress. Objective - Vital Signs/Intake and Output Vital Signs (last 24 hours): Temp Pulse Resp BP Pulse Ox 98.2 F 69 18 149/72 96 09/14/17 06:00 09/14/17 06:00 09/14/17 06:00 09/14/17 06:00 09/14/17 06:00 Intake and Output: 09/14/17 09/14/17 06:59 18:59 Intake Total 240 Output Total 1400 Balance -1160 - Medications Medications: Current Medications Acetaminophen (Tylenol 325mg Tab) 650 mg PO Q6H PRN PRN Reason: Temperature Aspirin (Aspirin Chewable) 81 mg PO DAILY [facility] Last Admin: 09/13/17 10:53 Dose: 81 mg Atorvastatin Calcium (Lipitor) 20 mg NG DAILY [facility] Last Admin: 08/30/17 09:00 Dose: 20 mg Carvedilol (Coreg) 12.5 mg PO BID [facility] Last Admin: 09/13/17 17:46 Dose: 12.5 mg Diltiazem HCl (Cardizem Cd) 120 mg PO DAILY [facility] Last Admin: 09/13/17 10:53 Dose: 120 mg Folic Acid (Folic Acid) 1 mg PO DAILY [facility] Last Admin: 09/13/17 10:52 Dose: 1 mg Hydralazine HCl (Apresoline) 10 mg IVP Q6 PRN PRN Reason: Systolic Blood Pressure Last Admin: 09/03/17 01:10 Dose: 10 mg Hydralazine HCl (Apresoline) 10 mg PO QID PRN PRN Reason: for SBP >170 Last Admin: 09/06/17 02:30 Dose: 10 mg Lorazepam (Ativan) 1 mg IVP Q6H PRN; Protocol PRN Reason: Anxiety Last Admin: 09/13/17 01:10 Dose: 1 mg Lorazepam (Ativan) 1 mg PO Q6 PRN; Protocol PRN Reason: Restlessness Last Admin: 09/12/17 09:32 Dose: 1 mg Multivitamins (Thera Tab) 1 tab PO 0800 [facility] Last Admin: 09/14/17 08:35 Dose: 1 tab Pantoprazole Sodium (Protonix Ec Tab) 40 mg PO DAILY [facility] Last Admin: 09/13/17 10:53 Dose: 40 mg Potassium Chloride (K-Dur 20 Meq Er Tab) 20 meq PO TID [facility] Last Admin: 09/13/17 17:45 Dose: 20 meq Thiamine HCl (Vitamin B1 Tab) 100 mg PO DAILY [facility] Last Admin: 09/13/17 10:53 Dose: 100 mg Warfarin Sodium (Coumadin) 2 mg PO 1800 [facility] PRN Reason: Protocol Last Admin: 09/13/17 17:46 Dose: 2 mg - Labs Labs: 09/12/17 07:40 09/12/17 07:40 PT 30.0 SECONDS (9.4-12.5) H 09/14/17 05:45 INR 2.67 (0.93-1.08) H 09/14/17 05:45 APTT 50.2 Seconds (25.1-36.5) H 09/04/17 05:30 - Constitutional Appears: Non-toxic - Head Exam Head Exam: NORMAL INSPECTION - Respiratory Exam Respiratory Exam: Decreased Breath Sounds - Cardiovascular Exam Cardiovascular Exam: +S1, +S2 - GI/Abdominal Exam GI & Abdominal Exam: Soft. absent: Tenderness Assessment and Plan - Assessment and Plan (Free Text) Plan: Assessment S/P Systemic Inflammatory Response Syndrome from 2 days ago, no evidence of infection acute CVA and NSTEMI with acute atrial flutter and AV block COPD chronic anemia CAD Plan repeat blood cx are negativeas well as urine cx; CXR shows some interstitial prominence but may be more of edema; PCT is slightly elevated but patient has renal failure and the PCT is actually much lower compared to the admission PCT will continue to monitor clinically off antibiotics since he is at risk for healthcare-associated infections
--- NOTE | 2017-09-14 14:11 | CP.PCM.PN ---
<Tran Herndon - Last Filed: 09/14/17 17:16> Subjective - Date & Time of Evaluation Date of Evaluation: 09/14/17 Time of Evaluation: 09:00 - Subjective Subjective: PGY-[address] Currie's service Patient seen and examined at bedside. No acute distress. Patient is alert and oriented to person, place and time. He continues to have some confusion about his situation. He is able to follow commends. He denies pain, headache, dizziness. He is tolerating diet. Objective - Vital Signs/Intake and Output Vital Signs (last 24 hours): Temp Pulse Resp BP Pulse Ox 98.2 F 75 18 149/72 96 09/14/17 06:00 09/14/17 09:45 09/14/17 06:00 09/14/17 09:45 09/14/17 06:00 Intake and Output: 09/14/17 09/14/17 06:59 18:59 Intake Total 240 Output Total 1400 Balance -1160 - Medications Medications: Current Medications Acetaminophen (Tylenol 325mg Tab) 650 mg PO Q6H PRN PRN Reason: Temperature Aspirin (Aspirin Chewable) 81 mg PO DAILY [facility] Last Admin: 09/14/17 09:45 Dose: 81 mg Atorvastatin Calcium (Lipitor) 20 mg NG DAILY [facility] Last Admin: 08/30/17 09:00 Dose: 20 mg Carvedilol (Coreg) 12.5 mg PO BID [facility] Last Admin: 09/14/17 09:42 Dose: 12.5 mg Diltiazem HCl (Cardizem Cd) 120 mg PO DAILY [facility] Last Admin: 09/14/17 09:45 Dose: 120 mg Folic Acid (Folic Acid) 1 mg PO DAILY [facility] Last Admin: 09/14/17 09:45 Dose: 1 mg Hydralazine HCl (Apresoline) 10 mg IVP Q6 PRN PRN Reason: Systolic Blood Pressure Last Admin: 09/03/17 01:10 Dose: 10 mg Hydralazine HCl (Apresoline) 10 mg PO QID PRN PRN Reason: for SBP >170 Last Admin: 09/06/17 02:30 Dose: 10 mg Lorazepam (Ativan) 1 mg PO Q6 PRN; Protocol PRN Reason: Restlessness Last Admin: 09/12/17 09:32 Dose: 1 mg Multivitamins (Thera Tab) 1 tab PO 0800 [facility] Last Admin: 09/14/17 08:35 Dose: 1 tab Pantoprazole Sodium (Protonix Ec Tab) 40 mg PO DAILY [facility] Last Admin: 09/14/17 09:42 Dose: 40 mg Thiamine HCl (Vitamin B1 Tab) 100 mg PO DAILY [facility] Last Admin: 09/14/17 09:45 Dose: 100 mg Warfarin Sodium (Coumadin) 2 mg PO 1800 [facility] PRN Reason: Protocol Last Admin: 09/13/17 17:46 Dose: 2 mg - Labs Labs: 09/12/17 07:40 09/12/17 07:40 PT 30.0 SECONDS (9.4-12.5) H 09/14/17 05:45 INR 2.67 (0.93-1.08) H 09/14/17 05:45 APTT 50.2 Seconds (25.1-36.5) H 09/04/17 05:30 - Constitutional Appears: No Acute Distress - Head Exam Head Exam: ATRAUMATIC, NORMAL INSPECTION, NORMOCEPHALIC - Eye Exam Eye Exam: EOMI, Normal appearance - ENT Exam ENT Exam: Mucous Membranes Moist - Respiratory Exam Respiratory Exam: Clear to Ausculation Bilateral, NORMAL BREATHING PATTERN. absent: Respiratory Distress - Cardiovascular Exam Cardiovascular Exam: REGULAR RHYTHM - GI/Abdominal Exam GI & Abdominal Exam: Soft - Neurological Exam Neurological Exam: Alert, Awake, CN II-XII Intact. absent: Oriented x3 Neuro motor strength exam: Left Upper Extremity: 5, Right Upper Extremity: 5, Left Lower Extremity: 5, Right Lower Extremity: 5 - Skin Skin Exam: Dry, Intact, Normal Color, Warm Assessment and Plan - Assessment and Plan (Free Text) Assessment: 77 yo male with PMH of copd, cad, and anemia presents with unresponsiveness due to CVA, found to have increasing confusion most likely with mild cognitive impairment. 1. CVA 2. SIRS 3. a. fib 4. NSTEMI 5. 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 Currie <Raudel Currie - Last Filed: 09/14/17 17:57> Objective - Vital Signs/Intake and Output Vital Signs (last 24 hours): Temp Pulse Resp BP Pulse Ox 98.2 F 50 L 18 105/52 L 96 09/14/17 06:00 09/14/17 17:50 09/14/17 06:00 09/14/17 17:50 09/14/17 06:00 Intake and Output: 09/14/17 09/14/17 06:59 18:59 Intake Total 240 1140 Output Total 1400 800 Balance -1160 340 - Medications Medications: Current Medications Acetaminophen (Tylenol 325mg Tab) 650 mg PO Q6H PRN PRN Reason: Temperature Aspirin (Aspirin Chewable) 81 mg PO DAILY [facility] Last Admin: 09/14/17 09:45 Dose: 81 mg Atorvastatin Calcium (Lipitor) 20 mg NG DAILY [facility] Last Admin: 08/30/17 09:00 Dose: 20 mg Carvedilol (Coreg) 12.5 mg PO BID [facility] Last Admin: 09/14/17 17:50 Dose: 12.5 mg Diltiazem HCl (Cardizem Cd) 120 mg PO DAILY [facility] Last Admin: 09/14/17 09:45 Dose: 120 mg Folic Acid (Folic Acid) 1 mg PO DAILY [facility] Last Admin: 09/14/17 09:45 Dose: 1 mg Hydralazine HCl (Apresoline) 10 mg IVP Q6 PRN PRN Reason: Systolic Blood Pressure Last Admin: 09/03/17 01:10 Dose: 10 mg Hydralazine HCl (Apresoline) 10 mg PO QID PRN PRN Reason: for SBP >170 Last Admin: 09/06/17 02:30 Dose: 10 mg Lorazepam (Ativan) 1 mg PO Q6 PRN; Protocol PRN Reason: Restlessness Last Admin: 09/12/17 09:32 Dose: 1 mg Multivitamins (Thera Tab) 1 tab PO 0800 [facility] Last Admin: 09/14/17 08:35 Dose: 1 tab Pantoprazole Sodium (Protonix Ec Tab) 40 mg PO DAILY [facility] Last Admin: 09/14/17 09:42 Dose: 40 mg Thiamine HCl (Vitamin B1 Tab) 100 mg PO DAILY [facility] Last Admin: 09/14/17 09:45 Dose: 100 mg Warfarin Sodium (Coumadin) 2 mg PO 1800 BERTO PRN Reason: Protocol Last Admin: 09/14/17 17:50 Dose: 2 mg - Labs Labs: 09/12/17 07:40 09/12/17 07:40 PT 30.0 SECONDS (9.4-12.5) H 09/14/17 05:45 INR 2.67 (0.93-1.08) H 09/14/17 05:45 APTT 50.2 Seconds (25.1-36.5) H 09/04/17 05:30 Attending/Attestation - Attestation I have personally seen and examined this patient.: Yes I have fully participated in the care of the patient.: Yes I have reviewed all pertinent clinical information, including history, physical exam and plan: Yes
[2017-09-14 17:52] VITALS: BP 105/52; PULSE 50
[2017-09-14 18:31] VITALS: TEMP 98.3; O2SAT 98
--- NOTE | 2017-09-15 08:41 | PN ---
DATE: 09/14/2017 REASON FOR CONSULTATION: Atrial fibrillation, CVA, altered mental status, and status post sepsis. SUBJECTIVE: The patient is much awake and alert. Denies any chest pain, shortness of breath, or any palpitations. PHYSICAL EXAMINATION: GENERAL: Not in apparent distress, off one-to-one. VITAL SIGNS: As follows; temperature afebrile, heart rate 77, and blood pressure 149/72. HEENT: PERRLA. Extraocular muscles intact. NECK: Supple. No carotid bruits or thyromegaly. CHEST: Clear to auscultation. HEART: S1 and S2 regular. ABDOMEN: Soft. EXTREMITIES: Clubbing and cyanosis negative. LABORATORY DATA: Blood workup as follows: WBC 11.8, hemoglobin 11, hematocrit 34.4, and platelet count 388. Chemistry shows sodium 140, potassium , chloride of 103, carbon dioxide 29, anion gap of 13, BUN 20, and creatinine 2. IMPRESSION: Acute kidney injury, the patient came in with creatinine of 1.7 and it is baseline, cerebrovascular accident, altered mental status, atrial fibrillation, non-ST elevation myocardial infarction, mild aortic regurgitation, ejection fraction of 33% systolic, and right ventricular systolic pressure of 45. RECOMMENDATIONS: Continue Coumadin. Goal is to keep INR between 2 to 2.5. Today, INR is 2.67. Continue Coumadin. Continue baby aspirin. Continue Cardizem. Continue Coreg. Continue atorvastatin discontinued because of renal insufficiency and we will repeat the lab in the morning. Thank you Dr. Taylor for providing us the opportunity in taking care of the patient, Abhinav Farfan. Paresh Reaves MD cc: Dr. Taylor
== END 2017-09-14 18:57 | DRG 64 ==
LOC: ED 12:10 → ERH 14:23 → CCU 17:23 → ICU 09-04 15:44 → 3RSO 09-09 00:38
PROVIDERS: ADMIT Internal Medicine; ATTEND Internal Medicine
DX: I63.9 Cerebral infarction, unspecified (principal); I21.4 Non-ST elevation (NSTEMI) myocardial infarction; R65.11 Systemic inflammatory response syndrome (SIRS) of non-infectious origin with acute organ dysfunction; N17.9 Acute kidney failure, unspecified; G81.91 Hemiplegia, unspecified affecting right dominant side; R47.01 Aphasia; M62.82 Rhabdomyolysis; R29.722 NIHSS score 22; I48.91 Unspecified atrial fibrillation; I48.92 Unspecified atrial flutter; I42.9 Cardiomyopathy, unspecified; I25.10 Atherosclerotic heart disease of native coronary artery without angina pectoris; I44.30 Unspecified atrioventricular block; I12.9 Hypertensive chronic kidney disease with stage 1 through stage 4 chronic kidney disease, or unspecified chronic kidney disease; N18.3 Chronic kidney disease, stage 3 (moderate); I08.3 Combined rheumatic disorders of mitral, aortic and tricuspid valves; F03.90 Unspecified dementia, unspecified severity, without behavioral disturbance, psychotic disturbance, mood disturbance, and anxiety; J44.9 Chronic obstructive pulmonary disease, unspecified; E87.6 Hypokalemia; D64.9 Anemia, unspecified; H91.10 Presbycusis, unspecified ear; Z78.1 Physical restraint status; Z91.81 History of falling; Z87.891 Personal history of nicotine dependence; I25.2 Old myocardial infarction; Z95.5 Presence of coronary angioplasty implant and graft